=== PATIENT | female | born 1940 | race Caucasian/White ===

== ENCOUNTER 2016-11-01 14:20 | Inpatient (IN) | payer MEDICARE ==
[2016-11-01] VITALS (13 sets, daily range): BP systolic 120–170; BP diastolic 58–80; PULSE 72–92; RESP 10–16; O2SAT 94–98
[~2016-11-01] VITALS: Ht 165.1 cm; Wt 66.8 kg
[2016-11-01] MEDS: Lactated Ringer's 1,000 ML IV SCH ×2 (06:00→18:30)
[~2016-11-01 14:20] MED LIST: ASPI-973 PO; CARB1TAB14 PO; CHOL10008 PO; Clindamycin 900 mg/50 mL D5W IV SCH; Glycopyrrolate 0.2 MG/ML 1mL Inj ONE; HYDROmorphone 2 mg/mL Inj ONE; LATA2.5D6 BOTH_EYES; LOSA100T29 PO; MAGN400O4 PO; METF500T4 PO; Neostigmine 1 mg/mL 10 mL Inj ONE; OXYC5TAB72 PO; Ondansetron 2 mg/mL 2 mL Inj ONE; POLY17PO6 PO; Propofol 10,000 mCg/mL 20 mL Inj ONE; Rocuronium 10 mg/mL 5 mL Inj ONE; fentaNYL-PF 50 mCg/mL 2 mL Inj ONE
[2016-11-01] MEDS ORDERED: Lactated Ringer's 1,000 ML IV ONE ×2 (15:54→21:46)
--- NOTE | 2016-11-01 17:29 | PCM.HPANE ---
Patient Data Date of Service: Nov 01, 2016 Surgeon Admitting Provider: Attending Provider:Alcon Harmon DO Primary Care Physician:Rosibel Bishop PA-C Other Provider:Korey Torres Anesthesia Reason for Visit Right Distal Humerus Fracture Ht/WT & BMI Height (Feet): 5 Height (Inches): 5 Weight (Kilograms): 66.32 Body Mass Index 24.00 Allergies Coded Allergies: Penicillins (Verified Allergy, Severe, Rash, 11/12/15) TAPE (Verified Allergy, Intermediate, 11/12/15) Uncoded Allergies: cholographin- dye (Allergy, Severe, RASH/SYNCOPE, 03/15/14) Past Anesthesia History Anesthesia History: Denies:: Anesthesia Reactions, Malignant Hyperthermia Diabetes History Hx Diabetes?: Yes (metformin. Does not check at home) Type of Diabetes: Type II Glycemic Control: Oral Medication Current Bedside Blood Glucose: 105 MRSA MRSA: No Medications Blood Thinner: Aspirin Hypertension Medication: Yes Home Meds Incl Beta April: No Reported Medications Cholecalciferol (Vitamin D3) (Vitamin D3)1,000 Unit Tab.chew1,000 Unit PO DAILY 10/31/16 oxyCODONE 5 Mg Tablet5 Mg PO Q4H PRN For Pain Ref 0 10/31/16 Polyethylene Glycol 3350 (Miralax)17 Gm Powd.pack17 Gm PO DAILY 10/31/16 Magnesium Hydroxide (Milk of Magnesia)400 Mg/5 Ml Oral.susp30 Ml PO DAILY 10/31/16 Metformin 500 Mg [id number] Mg PO BID Ref 0 10/31/16 Losartan Potassium 100 Mg [id number] Mg PO DAILY 10/31/16 Latanoprost 2.5 Ml Drops1 Gtt OP HS #1 BOTTLE 10/31/16 Carbidopa/Levodopa 25-100 mg 1 Each Tablet1 Tablet PO TID 10/31/16 Aspirin 81 Mg [id number] Mg PO DAILY Ref 0 10/31/16 Discontinued Reported Medications Latanoprost 2.5 Ml Drops1 Gtt OP HS #1 BOTTLE 11/13/15 Aspirin 81 Mg [id number] Mg PO DAILY Ref 0 11/12/15 Cholecalciferol (Vitamin D3) (Vitamin D3)1,000 Unit Tab.chew1,000 Unit PO DAILY 11/12/15 Carbidopa/Levodopa 25-100 mg 1 Each Tablet1 Each PO TID 03/15/14 Metformin 500 Mg [id number] Mg PO BIDWM 30 Days Ref 0 03/15/14 Discontinued Scripts Losartan Potassium (Cozaar)100 Mg [id number] Mg PO DAILY #30 TABLET Prov:Deepali Lanier MD 11/14/15 Polyethylene Glycol 3350 (Miralax)17 Gm Powd.pack17 Gm PO DAILY PRN For Constipation 30 Days Ref 0 Prov:Deepali Lanier MD 11/13/15 oxyCODONE 5 Mg Tablet5 Mg PO QID PRN For Pain 7 Days Ref 0 Prov:Deepali Lanier MD 11/13/15 History History of ENT Problems?: Yes HEENT History: Positive for:: Cataracts Denture Type: Full- Upper Partial- Lower Hx of Heart Problems?: Yes Cardiovascular History: Positive for:: Chest Pain (W/ EXERTION; PROBABLY ACS ) Hypertension (HYPERLIPIDEMIA) Irregular Heartbeat (OCC PAC'S,PVC'S ZIO PATCH 01/2014) Denies:: Congestive Heart Failure Hx of Respiratory Problem?: No Respiratory History: Positive for:: Dyspnea (HU) Denies:: Asthma COPD Emphysema Oxygen Administration Tuberculosis Use of C-PAP Machine Hx Neurologic Problems?: Yes Neurological History: Positive for:: Dizziness Headaches Parkinson's Disease Other History/Comments skipped noon dose sinemet today. States she has missed doses in the past, shouldn't be much problem waiting until evening dose. Hx of GI Problems?: Yes Gastrointestinal History: Positive for:: Gastroesphageal Reflux Heartburn Hiatal Hernia Hx of Problems?: No Female Hx: Denies:: Currently Endometriosis Pelvic Inflammatory Problems with Breasts? Skin History: Denies:: History Skin Disorders? Pressure Ulcers Hx Musculoskeletal Problems?: Yes Musculoskeletal History: Positive for:: Back Injury (hx of vertebral compression fx) Musculoskeletal Trauma (right humeral fx current admission problem) Denies:: Joint Replacement Hx of Psycho/Social Problems?: Yes Psycho Social History: Positive for:: Anxiety Denies:: Bipolar Disorder Hx Depression Suicide Attempt Hx Surgeries?: Yes (MARYAM,APPY,HERNIA RPR,LYSIS OF ADHESIONS,HYST,EXC NODULE ) Hx Any Other Health Problems?: Yes Other History: Positive for:: Hospitalization (OBSV FOR CHEST PAIN 2005) Denies:: Cancer Endocrine Disease Thyroid Disease History Blood Transfusions: Denies:: Blood Transfuse Reaction Blood Transfusions Hx Diabetes: Yes (metformin. Does not check at home)Bedside Blood Glucose: 105 Hx Alcohol Use: NoHx Substance Use: No Smoking Status: Former Smoker Have You Smoked inLast 12 mo: No Stop/Bang S-Snoring: Do You Snore Loudly: No T-Tired: feel tired, fatigued: Yes O-Obsered: Observed not breath: No P-Blood Pressure: treated: Yes B- Body Mass Index > 35 kg/m2: No A- Age over 50: Yes N- Neck Large Circumference: No G- Gender Male: No GERALDINE Total Score: 3 Risk Assessment Category Category 1A: Patient has history of documented sleep apnea, and HAS NOT received any narcotic, sedative or anesthesia administration during this stay. Category 1B: Patient has history of documented sleep apnea, and HAS received any narcotic , sedative or anesthesia administration during this stay Category 2: Patient has SUSPECTED Obstructive Sleep Apnea, and HAS received any narcotic , sedative or anesthesia administration during this stay. Category 3: Patient has SUSPECTED Obstructive Sleep Apnea and HAS NOT received narcotic, sedative or anesthesia administration during this stay. Category 4: Outpatient in Procedural Areas with known sleep apnea or who screen positive for High Risk via the STOP/BANG questionnaire. Exam Exam Vital Signs Vital Signs Date Time Temp Pulse Resp B/P Pulse Ox O2 Delivery O2 Flow Rate FiO2 11/01/16 15:12 36.6 72 14 170/70 98 Room Air General Appearance: Alert, Oriented X3, Cooperative, No Acute Distress HEENT/AIRWAY: MP 2 Lungs: Clear to Auscultation, Normal Air Movement Heart: Exam Unremarkable, Regular Rate/Rhythm, No Murmurs/Rubs/Gallops Meds/Labs/Diagnostics Admission Meds Current Medications Lactated Ringer's (Lr) 1,000 ml @ ud STK-MED ONCE IV Last administered on 11/01t 15:54; Start 11/01/16 at 15:54; Stop 11/01/16 at 15:55; Status DC Bedside Blood Glucose: 105 Plan Impression Patient chart reviewed, patient interviewed and anesthestic plan with risks, benefits, and alternatives discussed, and informed consent obtained. NPO Status: confirmed before mn ASA Physical Status: ASA3 Severe Disease Anesthetic Plan: GA Bene/Risks/Altern/Consents: Yes HP Complete Prior to Induction: Yes Aureliano Meredith MD Nov 01, 2016 17:29
[2016-11-01] MEDS ORDERED: Lidocaine 1%/Epi 1:100,000 30 mL MDV INFIL ONE (21:17)
[2016-11-01] MEDS ORDERED: Lactated Ringer's 500 ML IV PRN (22:08)
[2016-11-01] MEDS ORDERED: Lactated Ringer's 1,000 ML IV SCH (22:08)
[2016-11-01] MEDS ORDERED: Phenylephrine 10,000 mCg/mL Inj IVPUSH PRN (22:10)
[2016-11-01] MEDS ORDERED: HYDROmorphone 1 mg/mL Inj IVPUSH PRN (22:10)
[2016-11-01] MEDS ORDERED: Dexamethasone 4 mg/mL Inj IVPUSH PRN (22:10)
[2016-11-01] MEDS ORDERED: MetoCLOpramide 5 mg/mL 2 mL Inj IVPUSH PRN (22:10)
[2016-11-01] MEDS ORDERED: Ondansetron 2 mg/mL 2 mL Inj IVPUSH PRN ×2 (22:10→23:00)
[2016-11-01] MEDS ORDERED: EPHEDrine Sulfate 50 mg/mL Inj IVPUSH PRN (22:10)
[2016-11-01] MEDS ORDERED: fentaNYL-PF 50 mCg/mL 2 mL Inj IVPUSH PRN (22:10)
--- NOTE | 2016-11-01 22:10 | PCM.ANEP1 ---
Post Anesthesia Phase 1 PACU Phase 1 Assessment Date of Service: Nov 01, 2016 Vital Signs see anesthesia record Vital Signs Date Time Temp Pulse Resp B/P Pulse Ox O2 Delivery O2 Flow Rate FiO2 11/01/16 22:05 87 10 135/60 96 Nasal Cannula 2 11/01/16 22:00 89 11 132/72 96 Nasal Cannula 2 11/01/16 21:55 91 11 134/61 98 Nasal Cannula 2 11/01/16 21:50 92 10 125/63 97 Nasal Cannula 3 11/01/16 21:45 92 10 125/65 94 Room Air 11/01/16 21:42 37. 92 10 120/68 98 Simple Mask 8 11/01/16 15:12 36.6 72 14 170/70 98 Room Air Anesthetic Administered: GA Level of Alertness: Sleeping, hard to arouse YOUNG's with Equal Strength: Yes Pain: No Nausea or Vomiting: No Oxygen Delivery: Simple Mask Lungs: Clear to Auscultation, Normal Air Movement Bruce Salmeron MD Nov 01, 2016 22:10
--- NOTE | 2016-11-01 22:20 | PCM.ANEP2 ---
Post Anesthesia Evaluation ASA/CMS Post Anesthesia VS in Patient's Normal Range?: Yes Resp Stable; Airway Patent?: Yes CV Function & Hydration Stable: Yes Mental Status Recovered?: Yes Pain control Satisfactory?: Yes N/V Control Satisfactory?: Yes Bruce Salmeron MD Nov 01, 2016 22:20
[2016-11-01] MEDS ORDERED: Polyethylene Glycol (PEG) 17 Gm Powder PO PRN (23:00)
[2016-11-01] MEDS ORDERED: Magnesium Hydroxide 10 mL Oral Concentration PO PRN (23:00)
[2016-11-01] MEDS ORDERED: Sodium Biphos-Phos 133 mL Enema RECTAL PRN (23:00)
[2016-11-01] MEDS ORDERED: HYDROcodone-APAP 7.5-325 mg Tablet PO PRN (23:00)
[2016-11-02] MEDS: Sodium Chloride LOK Flush 10 mL Syringe IV SCH ×4 (00:30→21:55)
[2016-11-02 01:15] VITALS: BP 140/75; PULSE 80; RESP 16; O2SAT 96
[2016-11-02] MEDS: hydrOXYzine Pamoate 25 mg Capsule PO PRN ×2 (01:30→11:26)
[2016-11-02] MEDS: HYDROcodone-APAP 7.5-325 mg Tablet PO PRN ×2 (01:30→11:26)
--- NOTE | 2016-11-02 02:01 | NUR ---
Arrival to Unit Patient arrived to [facility] at 2320 from PACU. Patient was to recover and discharge after surgery but due to status has been admitted over night. Full assist was needed to transfer patient to hospital bed. Patient is very sleepy, but arousable, and shortly after will fall back to sleep. Denies any pain, CP, or SOB. EDGER HAND applied, and 1L O2 via NC is being worn. IV SL. Right arm has francisco bandage dressing and splint applied. As the shift has progressed patient complains of 2/10 right arm pain. 1 tab norco PO and 25mg Vistaril PO given. Denies nausea and is tolerating fluids and jello. Patient has attempted to void but was unable to at this time. Bed is locked/ in low position and call light is within reach. Will continue to monitor, and continue Q 1 hour checks.
--- NOTE | 2016-11-02 02:32 | PCM.CHPMED ---
Subjective Date of Service: Nov 02, 2016 Provider requesting consult: Alcon Harmon DO Primary Physician: Admitting Physician: Primary Care Physician: Rosibel Bishop PA-C Attending Physician: Alcon Harmon DO Admit Status: 23-Hour Observation Chief Complaint: Chief Complaint: s/p ORIF Right Distal Humerus Fracture History of Present Illness: 76 y/o female with a history of Parkinson's, HTN, DM type 2, and osteoporosis on post-operative day #1 from an ORIF of right distal humerus fracture by Dr. Harmon. Per chart review, the patient was visiting [place] over a month ago with her when she fell and injured her right elbow. She was placed in a splint for several weeks but when there were no signs of healing, she was referred to Orthopedic surgery for definitive fixation. The patient reportedly tolerated the surgery well and there were no complications. She was scheduled for discharge following recovery in the PACU, however due to excessive somnolence the decision was made to admit the patient under observation status. Medical team consulted to monitor patient recovery overnight. Per nursing, patient arrived to PACU sleepy with anesthesia, would open her eyes to name but only briefly before drifting back to sleep. She was taken to the [facility] at 23:15, somnolent but aroused and hemodynamically stable. On arrival to the floor, vitals: 36.4, BP 142/80, pulse 88, RR 16, O2 sats 97% on 1L nasal cannula. Patient is alert and oriented to person, time and somewhat place. She knows she is in the hospital but states that she is in [place], [place]. She is sedated but opens her eyes to voice, is communicating appropriately and able to follow commands. She states that her pain is 2/10 and she denies fever, chills, nausea, difficulty breathing, chest pain, dizziness or headache. Review of Systems: A comprehensive review of systems was conducted with the patient and found to be negative except as above in the History of Present Illness. PMH Past Medical History Diabetes mellitus, type 2 Hypertension Parkinson's Osteoporosis Syncopal episodes Vertebral compression fracture Right distal humerus fracture Pelvic fracture Bedside Blood Glucose: 159 Surgical History ORIF right distal humerus fracture Home Medications Per [employer] Records: Aspirin 81mg daily Carbidopa 25mg-levodopa 100mg tid Latanoprost 0.005% eye drops, 1 drop qhs Losartan 100mg daily Metformin 500mg bid Oxycodone 5mg qid prn Tubersol 5 tub. unit/0.1ml intradermal inj Vitamin D3 1,000 unit daily Allergies: Coded Allergies: Penicillins (Verified Allergy, Severe, Rash, 11/12/15) TAPE (Verified Allergy, Intermediate, 11/12/15) Uncoded Allergies: cholographin- dye (Allergy, Severe, RASH/SYNCOPE, 03/15/14) Family History Family History Coronary artery disease Social History Hx Alcohol Use: NoHx Substance Use: NoHx Tobacco Use: No Smoking Status: Former Smoker Living Arrangement: with Family Exam Vital Signs Vital Sign - Last Date Time Temp Pulse Resp B/P Pulse Ox O2 Delivery O2 Flow Rate FiO2 11/02/16 00:03 Supplement Oxygen 11/01/16 22:45 82 12 144/63 96 2 11/01/16 22:10 36.3 Intake and Output 11/01/16 11/01/16 11/02/16 Cumulative From/Thru 15:00 23:00 07:00 10/31/16 16:02 - 11/02/16 00:03 Intake Total 1350 ml 1350 ml Output Total 150 ml 150 ml Balance 1200 ml 1200 ml Intake IV Total 1350 ml 1350 ml Output Estimated Blood Loss 150 ml 150 ml General: Alert (oriented to person, time and somewhat place.), Cooperative, No Acute Distress, Other (sedated but easily aroused, opens eyes on command and able to follow commands) Head: Normal Eyes: PERRLA, Scleral Anicteric Mouth: Mucous Membranes Dry Chest & Lungs: Diminished breath sounds (shallow breathing but clear to auscultation) Cardiovascular: Regular Rate/Rhythm, No Murmurs/Rubs/Gallops Abdomen: Non-tender, Non-distended, Soft Extremities: No cyanosis/clubbing/edma bilat, Other (R upper ext propped up on pillow, casted with sling in place; right hand appears neurovascularly intact. ) Neurological: Grossly Neurologically Intact (sedated, mild slurring of speech) Lab and Diagnostics Labs Labs (10/31/16) WBC 8.1 RBC 4.55 Hgb 11.5 Hct 37.2 MCV 81.8 MCH 25.3 MCHC 30.9 RDW 15.8 Sodium 142 Potassium 4.5 Chloride 103 Bicarb 22 BUN 34 Creatinine 0.84 Serum glucose 150 HbA1c 7.3 Assessment & Plan Assessment 76 y/o female with a history of Parkinson's, HTN and DM type 2 on post- operative day #1 from an ORIF of right distal humerus fracture by Dr. Harmon. Admitted under observation status for persistent post-anesthesia somnolence. Medical team consulted to monitor recovery overnight. 1. Post-operative somnolence. Improving -vital signs stable, patient is sedated but easily aroused, opens eyes on command and is somewhat confused but communicating appropriately. -continue close monitoring and supportive care 2. s/p ORIF right distal humerus fracture. -management per Orthopedic surgery 3. Diabetes mellitus, type 2 (chronic). Ongoing -continue home metformin if needed prior to discharge 4. Parkinson's. Ongoing -continue home Carbidopa-levodopa 5. Hypertension (chronic). Ongoing -continue home losartan if needed prior to discharge PRN: Acetaminophen-fever/headache/mild/moderate pain Antiemetics, as needed Bowel regimen, as needed. Problems: Pain Evaluation: Adequate Pain Control GI Prophylaxis: Not indicated VTE Prophylaxis Indicated: Meets Criteria for Anticoag Therapy (Orthopedic surgery to manage) Resuscitation Status: CPR: Attempt Resuscitation Attending Statement The patient was seen and examined together with Dr. Swan on 11/02 and I agree with the history, exam and plan as outlined in the note above. Carlotta Swan DO Nov 02, 2016 00:51 Deuce Davalos MD Nov 02, 2016 03:55
[2016-11-02 05:37] VITALS: BP 122/71; PULSE 85; RESP 18; O2SAT 96
--- NOTE | 2016-11-02 06:43 | NUR ---
Right Hand Swelling As the shift has progressed patients right hand has become more swollen and a dusky/purple in color. Patient states that she has sensation of hand, and is able to wiggle fingers, but does have some "tingling." Skin is warm to touch. Complains of 5/10 pain in both the right hand and the right elbow. Night hospitalist notified, and resident came to assess the patient. After assessment, resident recommended that the digital operations analyst PA be notified. PA paged, and has asked that the francisco bandage to be cut off assist in some pressure relief. The white dressing is to stay intact, and splint in place. Right arm is elevated on pillows, and ice applied. will continue to monitor.
[2016-11-02] MEDS: Lactated Ringer's 1,000 ML IV SCH ×2 (07:00→19:30)
--- NOTE | 2016-11-02 07:35 | PCM.PNORTH ---
Subjective Date of Service: Nov 02, 2016 Visit Information: Reason for Visit Right Distal Humerus Fracture Surgery/Surgery Date Post-Op Day # Date of Admission: Hospital Day # Subjective Cande Wall underwent a right distal humerus ORIF last night on 11/01/2016 with inflation of surgery at approximately 2130 hrs.. Found patient awake and alert this morning. Pain 5/10. On Martin 7.51 and Vistaril 25 mg for pain. Was called by nursing this morning prior to my arrival regarding dusky color of patient's right hand and increased swelling at the hand. I Asked nursing to cut the Jonathan bandages on her right upper extremity dressing. This was performed as asked. When I arrived at the hospital this morning her condition had significantly improved and a pink and normal color had returned to her hand with reduce swelling by nurse's report. Patient had good sensation and function at the right hand when tested. Patient having difficulty urinating at this time but nursing is working on this and will straight cath as needed. Pain Management: PO Objective Exam Objective Alert and oriented 3 and pleasant. Interoperative dressing is clean dry and intact with exception of Jonathan wrap having been cut at my direction to reduce pressure. Finger wiggle and sensation intact at right upper extremity distally. No compartment syndrome noted. Montes is absent. Arm is well-positioned and elevated. Vital Signs and I/O Vital Sign - Last Date Time Temp Pulse Resp B/P Pulse Ox O2 Delivery O2 Flow Rate FiO2 11/02/16 05:37 36.7 85 18 122/71 96 Nasal Cannula 1.00 Intake and Output 11/01/16 11/01/16 11/02/16 Cumulative From/Thru 15:00 23:00 07:00 10/31/16 16:02 - 11/02/16 05:37 Intake Total 1350 ml 400 ml 1750 ml Output Total 150 ml 0 ml 150 ml Balance 1200 ml 400 ml 1600 ml Intake Oral 400 ml 400 ml IV Total 1350 ml 1350 ml Output Urine Total 0 ml 0 ml Estimated Blood Loss 150 ml 150 ml # Bowel Movements 0 0 General Appearance: Alert, Oriented X3, Cooperative, No Acute Distress Extremities: No Compartment Syndrom Noted Postop Sensory Motor: Distal Motor Intact, Movement in Fingers, Distal Sensation Intact Activity: Activity per PT, Ambulate with PT (occupational therapy is requested for range of motion at wrist hand and fingers.) Catheters: None Assessment & Plan Impression Cande Becker is a 76-year-old female who has undergone a right distal humerus ORIF on 11/01/[address] Alcon Harmon. Due to the late hour at which her procedure was finished patient was ultimately kept as an inpatient with a bed with anticipated discharge today on 11/02/2016. Patient is having some difficulty with urination and has had some difficulty with a tight dressing. Dressing has been managed appropriately and resolved. Nursing is working with difficulty with urination. Problems: Plan Postoperative day #1 from right distal humerus ORIF performed on 11/01/[address] Alcon Harmon. Nonweightbearing on the right upper extremity with no pulling, pushing or lifting. Occupational therapy for wrist hand and finger range of motion while in-house.. Patient will begin outpatient physical therapy as soon as possible after discharge with removal of splint and range of motion. Continue by mouth pain medication as needed with Martin 7.5 and Vistaril 25 mg. discharge pain control medication prescription in chart. Nursing please "straight" or "in and out" cath as needed for urinary retention. Please avoid Montes catheter. Discussed this with night and day nurse this morning. 1130 hrs. I spoke with Cem Guzman RN and he informed me that patient has been straight cathed with a good result. However she is time she was no ability to void on her own. I spoke with Dr. Borrego as well and he recommends keeping patient in house and continuing bladder training until she is able to void on her own. Ice and elevate as needed for pain control. Patient may shower but arm should be well covered and taped to maintain dressing and a clean dry and intact manner. Follow-up in 4-[address] Rondon today for transition to a hinged elbow brace and ordering of outpatient physical therapy for range of motion at the elbow. F/U in 2 weeks at [facility] in 2 weeks on 11-19-[address] Alcon Harmon. Anticipate discharge to home today with family as caregivers on 11/02/2016 if and when patient is able to void without assistance.. VTE Prophylaxis: SCDs, MU Roa Resuscitation Status: CPR: Attempt Resuscitation Jerson Lin PA-C Nov 02, 2016 07:35
[2016-11-02 08:57] LABS: BASOPHILS % (AUTO) 0.2 % (0-3); EOSINOPHILS % (AUTO) 0.1 % (0-5); MONOCYTES % (AUTO) 11.6 % (4-12); Mean Corpuscular Hemoglobin 25.6 pg (27.0-35.0); Mean Corpuscular Volume 80.5 fL (81-100); Platelet Count 194 bil/L (150-400)
[2016-11-02 09:20] LABS: Magnesium 1.7 mg/dL (1.6-2.6)
[2016-11-02 09:25] VITALS: BP 115/69; PULSE 80; RESP 18; O2SAT 99
--- NOTE | 2016-11-02 10:22 | NUR ---
patient is awake and orient to person and place. she has had some confusion thinking that he surgery was hapening today. it was reinforced that she needed to drink fluids. right hand continues to be swollen and is pink in color. patient confirms that she has sensation. it is warm and dry to the touch. patient reports 2/10 pain. ice has been applied to area. patient has not yet voided. bladder scan was done and she was found to have 856 mL of urine. Doctor has confirmed straight cathether to be done to relieve urine in bladder.
--- NOTE | 2016-11-02 11:22 | NUR ---
In and Out cath: Pt unable to void, Bladder scan shows 850. In and out done with output of 600. Primary RN aware.
[2016-11-02] MEDS: Senna-Docusate 8.6-50 mg Tablet PO SCH ×2 (11:24→20:15)
[2016-11-02] MEDS ORDERED: HYDROcodone-APAP 5-325 mg Tablet PO PRN (14:50)
[2016-11-02] MEDS: Polyethylene Glycol (PEG) 17 Gm Powder PO SCH (15:00)
[2016-11-02] MEDS: Magnesium Hydroxide 355 mL Oral Suspension PO SCH (15:00)
[2016-11-02 15:20] VITALS: BP 112/68; PULSE 89; RESP 16; O2SAT 97
--- NOTE | 2016-11-02 16:03 | NUR ---
Social Work: Brief Note Data & Assessment: Airplane Rental Clerk met with patient and patient's spouse at bedside to discuss discharge plan. Patient is currently on service with [facility] and has [facility] coming into the home to assist. Patient plans to resume [facility] when discharged and will continue to have [facility] to come into the home and assist. When patient is discharged [facility] should be called at [phone] to pick her up. [facility] has been given access to the patient's chart. SW will continue to follow. Plan: Patient will discharge home with and [facility] retirement assistance. When patient is discharged [facility] should be called at [phone] to pick her up. SW will continue to follow. Tejal Peraza, KAMRYN, ACM
[2016-11-02] MEDS: Insulin Human REGular 300 Unit/3 mL Inj SUBQ SCH ×2 (17:57→20:17)
--- NOTE | 2016-11-02 19:30 | NUR ---
Urination Patient felt urge to urinate, voided 100ml. Patient bladder scanned, residual of 415ml noted. Shortly thereafter patient voided 300ml. Care is ongoing.
--- NOTE | 2016-11-02 20:12 | NUR ---
[facility] signed
[2016-11-02] MEDS ORDERED: Magnesium Sulf 2 Gm/50mL Water 2 GM in IV Premix 1 EACH IV ONE (20:20)
--- NOTE | 2016-11-02 20:20 | PCM.PNMED ---
Subjective Date of Service Nov 02, 2016 Subjective Patient complains of pain in the right upper extremity and she also complains of inability to void. She had a significant amount of relief when she had the straight catheterization. Patient still has been unable to void. Exam Vital Signs Vital Sign - Last Date Time Temp Pulse Resp B/P Pulse Ox O2 Delivery O2 Flow Rate FiO2 11/02/16 15:20 36.9 89 16 112/68 97 Room Air 11/02/16 09:25 2.00 Intake and Output 11/01/16 11/01/16 11/02/16 Cumulative From/Thru 15:00 23:00 07:00 10/31/16 16:02 - 11/02/16 05:37 Intake Total 1350 ml 400 ml 1750 ml Output Total 150 ml 0 ml 150 ml Balance 1200 ml 400 ml 1600 ml Intake Oral 400 ml 400 ml IV Total 1350 ml 1350 ml Output Urine Total 0 ml 0 ml Estimated Blood Loss 150 ml 150 ml # Bowel Movements 0 0 Exam General: Patient is sitting comfortably in bed with head elevated at approximately 45. Patient appears to be in no apparent distress until she tries to move her right upper extremity which is very painful. HEENT: Head is atraumatic and normocephalic. Eyes: Pupils are equally round and reactive to light and accommodation. Extraocular muscles are intact. Sclera are white, anicteric. Subconjunctival mucosa is pink. Ears and nose are unremarkable. Oropharynx: There is no mucosal lesions, there is no thrush, there is no pharyngitis. Neck: Is supple, there are no nodes, or masses or tenderness. Chest: Is clear to auscultation and percussion. There are no rales, rhonchi, wheezes or rubs. Heart: Rate, rhythm is regular. There is no murmur, rub or gallop. Abdomen: Good bowel sounds are present. Abdomen is soft, nontender, no organomegaly or masses were appreciated. Extremities: The right upper extremity is in a postoperative sling. The right upper area dressing is clean dry and intact. There is slight edema of the right upper extremity. The left upper extremity and bilateral lower extremities are unremarkable with no edema, and no cellulitis and no rash. Neurologic: There are no focal neurological deficits. Cranial nerves II through XII are intact. There are no sensory or motor deficits. Movements are somewhat slow, and patient exhibits somewhat of a masked facies. Gait was not tested at this time. Psychiatric: Patients mood is calm and she shows no sign of agitation. Genital: Deferred Rectal: Deferred Lab and Diagnostics Result Diagram: 11/02/1645 11/02/1645 Assessment & Plan Patient is a 76 y/o female with a history of Parkinson's, HTN, DM type 2, and osteoporosis on post-operative day #1 from an ORIF of right distal humerus fracture by Dr. Harmon. Per chart review, the patient was visiting [place] over a month ago with her when she fell and injured her right elbow. She was placed in a splint for several weeks but when there were no signs of healing, she was referred to Orthopedic surgery for definitive fixation. The patient reportedly tolerated the surgery well and there were no complications. She was scheduled for discharge following recovery in the PACU, however due to excessive somnolence the decision was made to admit the patient under observation status. The medical team was consulted to monitor patient's recovery overnight. However, today the patient has been unable to void. Patient was found to have over 800 mL of urine and a postvoid residual exam by bladder scanning. Patient was extremely uncomfortable. A straight cath was performed and relieved much of that significant postvoid residual. The patient continues to be unable to void. Therefore, the patient was admitted to the hospitalist service for further evaluation and treatment. # Post-operative somnolence, present at the time of admission. Improving - The patient's vital signs are stable, the patient is easily aroused, opens eyes on command and is more alert and responsive and back to her baseline.. - We will continue close monitoring and supportive care. # The patient is s/p ORIF right distal humerus fracture postop day #1. - Continue management per Orthopedic surgery 3. Diabetes mellitus, type 2 (chronic). Ongoing - We will continue home metformin. - Start sliding scale insulin coverage and Accu-Cheks before meals and at bedtime. # Parkinson's. Ongoing - We will continue home Carbidopa-levodopa # Hypertension (chronic). Ongoing - We will continue home losartan. PRN: Acetaminophen-fever/headache/mild/moderate pain Antiemetics, as needed Bowel regimen, as needed. Disposition: We will begin bladder training with patient and hopefully once the anesthesia effects wear off patient will be able to void and be discharged home. We will check labs and urinalysis in a.m. Pain Evaluation: Adequate Pain Control GI Prophylaxis: Not indicated VTE Prophylaxis: MU Granados VTE Mechanical Devices: Intermittant Pneumatic CD Resuscitation Status: CPR: Attempt Resuscitation Benito Borrego MD Nov 02, 2016 20:20
[2016-11-02 20:35] VITALS: BP 104/60; PULSE 89; RESP 20
--- NOTE | 2016-11-03 04:05 | OP ---
[address] [address] OPERATIVE REPORT PATIENT: AMMON MONDRAGON : 1940 MR#: [id number] ADMIT: 11/01/2016 JOB ID: [id number] DATE OF SURGERY: 11/01/2016 PREOPERATIVE DIAGNOSIS(ES): Right extra-articular distal humerus fracture. POSTOPERATIVE DIAGNOSIS(ES): Right extra-articular distal humerus fracture. PROCEDURE: 1. Open reduction internal fixation of right extra-articular distal humerus fracture. 2. Extended physician services was necessary as this fracture was almost 5 weeks old and required extensive dissection through the scar tissue. SURGEON: Alcon Harmon DO. EGG SETTER: Jerson Lin PA-C. The assistance of Jerson Lin PA-C was necessary for help with retraction as well as for reduction and manipulation of the fracture. ANESTHESIA: General. BRIEF HISTORY: The patient is a pleasant 76-year-old female who originally fell in [place]. She sought treatment in [place] but was placed simply in a splint. Once she arrived in [place] she was followed up at an outlying facility and referred here for further evaluation and treatment. Upon presentation, she was almost five weeks out now from a right displaced extra-articular distal humerus fracture. I discussed with the patient the risks, benefits, alternatives and indications to proceed with an open reduction internal fixation of the right distal humerus fracture secondary to the amount of displacement and to allow the patient to start initiating range of motion as she has been immobilized for almost five weeks. They understood the risks included, but not limited to, neurovascular injury, tendon injury, infection, failure of fixation, stiffness, persistent pain, all of which may require further intervention. The patient had all questions answered. Consent was signed and placed on the chart. PROCEDURE IN DETAIL: The patient was brought to the operating suite and placed supine on the operating room table. Surgical time-out was performed. Everyone in the room was in agreement. After appropriate anesthesia was obtained, the patient was placed into the left lateral decubitus position with the body secured with a beanbag and all prominences well padded. The right upper extremity was then prepped and draped in sterile fashion. A sterile tourniquet was then applied. Tourniquet inflated after exsanguination. A standard posterior longitudinal incision was made at the mid humerus extending medially along the olecranon and distally overlying a portion of the subcutaneous border of the ulna. Large subcutaneous flaps were then raised. The patient's ulnar nerve was first identified and freed up to the level of the cable tunnel and as far proximally to the superior aspect of the operative wound. The ulnar nerve was mobilized to allow for fracture identification and visualization as well as to protect the nerve during the case. The triceps was then elevated from a medial lateral position. Secondary incision was made laterally and paratricipital approach was utilized. The fracture was identified. There was significant fibrous tissue overlying the fracture ends. The fibrous tissues were then copiously irrigated and debrided until cortical bone was identified. The intramedullary canals were also curetted from any remaining residual fibrous tissue. Manual reduction was then performed. Lag screw was placed. There was fracturing of a portion of the cortex with application of the lag screw. Thus, it had to be removed as an insufficient purchase was obtained. Secondary lag screw was attempted but again due to the patient's bone quality, had very poor fixation. With manual reduction being held, then with multiple K-wires a Synthes posterior lateral variable angle plate was placed to the posterior lateral aspect of the humerus and dissection was carried out proximally to ensure that the plate was underneath the radial nerve and the neurovascular bundle. The plate was held provisionally with K-wires and then first affixed with nonlocking screws to pull the plate to the posterior lateral cortex of the humerus. A screw was placed both proximal and distal to the fracture site. Multiple views of fluoroscopy were utilized to verify anatomic reduction. This was followed by application of a longer direct medial plate. Again this was held provisionally with clamps. Excellent compression was achieved. Combination of locking and nonlocking screws were then utilized. With appropriate placement of the hardware and verified under fluoroscopy, completion of fixation was performed to have adequate fixation at both sides of the fracture. The patient's elbow was ranged and was able to be ranged to a near full functional range of motion. There was some loss of terminal extension, but no impingement of the olecranon was appreciated on fluoroscopy with live fluoroscopic examination. The ulnar nerve was left within the cubital tunnel as elbow range of motion did not demonstrate any subluxation. Copious irrigation was then performed, followed by closure of the subcutaneous tissues with Vicryl and arsalan for the skin. The patient was then placed into a well-padded well-molded long-arm posterior splint. ESTIMATED BLOOD LOSS: 150 cc. COMPLICATIONS: None. DISPOSITION: The patient tolerated the procedure well. Anesthesia was reversed. The patient was transferred back to recovery. POSTOPERATIVE PLAN: The patient had some issues postoperatively with O2 requirements and thus was admitted for 23 hour observation. She will follow up next week to be switched to a hinged elbow brace and start working with physical therapy. IMPLANT: A 7 hole Synthes variable angle posterior lateral distal humerus plate as well as a 6 hole variable angle directing medial distal humeral plate. [facility] HOSPITALRocio
[2016-11-03 05:40] VITALS: BP 101/63; PULSE 79; RESP 22; O2SAT 96
[2016-11-03 05:45] LABS: APPEARANCE,URINE HAZY (CLEAR,HAZY); COLOR,URINE DARK YELLOW (YELLOW); OCCULT BLOOD,URINE NEGATIVE (NEGATIVE); PH,URINE 5.5 (5.0-8.0); UROBILINOGEN,URINE NORMAL (NORMAL)
--- NOTE | 2016-11-03 05:57 | NUR ---
pain/urinary retention pt has complained of pain in her arm with movement. per report from previous nurse pt son stated that she had hallucinated on pain medications before and they believed it was the tylenol in them that she reacted poorly to. Pt was given 5mg of oxycodone this shift. there has been no increase in confusion. she is alert and oriented to self and has a general idea of where she is but does not specifically what town or hospital she is in. she has been frequently reminded to use call light but does not remember to use it, trista alarm is on. pts personal md do resident urgent care was in the room last night and stated that her mentation is the same as it has been in the last couple of weeks, and they do not see any increase in confusion. pt has urinated several times this shift. she is only able to go around 100cc at time. this morning at 0500 she voided 200cc and had a post void bladder scan of 450cc. she denies any discomfort at this time. will continue to monitor and straight cath as needed.
[2016-11-03 06:15] LABS: BASOPHILS % (AUTO) 0.3 % (0-3); EOSINOPHILS % (AUTO) 1.4 % (0-5); MONOCYTES % (AUTO) 12.8 % (4-12); Mean Corpuscular Hemoglobin 26.1 pg (27.0-35.0); Mean Corpuscular Volume 81.8 fL (81-100); NEUTROPHILS % (AUTO) 71.8 % (40-74); Platelet Count 162 bil/L (150-400)
[2016-11-03] MEDS: hydrOXYzine Pamoate 25 mg Capsule PO PRN (06:37)
[2016-11-03 07:45] VITALS: BP 104/63; PULSE 77; RESP 16; O2SAT 96
[2016-11-03] MEDS: Lactated Ringer's 1,000 ML IV SCH (08:00)
[2016-11-03] MEDS: Sodium Chloride LOK Flush 10 mL Syringe IV SCH ×2 (08:12→15:44)
[2016-11-03] MEDS: Insulin Human REGular 300 Unit/3 mL Inj SUBQ SCH ×2 (08:12→11:30)
[2016-11-03] MEDS: Magnesium Hydroxide 355 mL Oral Suspension PO SCH (08:30)
[2016-11-03] MEDS: Polyethylene Glycol (PEG) 17 Gm Powder PO SCH (08:30)
[2016-11-03] MEDS: Senna-Docusate 8.6-50 mg Tablet PO SCH (08:30)
--- NOTE | 2016-11-03 08:51 | PCM.PNORTH ---
Subjective Date of Service: Nov 03, 2016 Visit Information: Reason for Visit Right Distal Humerus Fracture Surgery/Surgery Date Post-Op Day # Date of Admission: Hospital Day # Subjective Found patient sitting up in bed this morning eating breakfast. No complaints of pain prior to removing patient's arm. Patient is communicative this morning but is not following directions for answering questions completely appropriately. Appears somewhat confused. During my evaluation patient began to have difficulty swallowing her breakfast and eventually regurgitated some of her wound. This was repeated twice. I then asked nursing to discontinue her breakfast meal and fluids and I will order a swallowing eval. I rechecked her splint position and Jonathan wrap. Patient seems to have reduced function at her right hand this morning although she does have sensation. There is some mild swelling about the hand this morning which is increased from yesterday. Her arm was not elevated when I entered the room and I have placed her arm on 2 pillows and lowered her head in order to facilitate elevation to reduce swelling. Patient does indicate this morning and she has been urinating on her own without straight catheterization. Postop General: No Complaints, No Shortness of Breath, No Chest Pain, Good Appetite Pain Management: PO Objective Exam Objective Patient is awake but seems mildly confused and has difficulty following directions. Interoperative dressing and splint are in place and intact. Interoperative use wrap was cut yesterday to relieve pressure. This was replaced yesterday by myself in very loose fashion. This is rechecked this morning and loosened further. There is mild to moderate swelling of the hand. Finger we will and sensation are intact but patient's dexterity appears reduced this morning. This could also be a result of confusion and difficulty in following requests for movement. Arm sling is in place. 2 pillows are placed under the patient's elbow to elevate her arm. Vital Signs and I/O Vital Sign - Last Date Time Temp Pulse Resp B/P Pulse Ox O2 Delivery O2 Flow Rate FiO2 11/03/16 05:40 36.9 79 22 101/63 96 Room Air 11/02/16 09:25 2.00 Intake and Output 11/02/16 11/02/16 11/03/16 Cumulative From/Thru 15:00 23:00 07:00 10/31/16 16:02 - 11/03/16 06:12 Intake Total 720 ml 2470 ml Output Total 600 ml 1100 ml 1850 ml Balance -600 ml -380 ml 620 ml Intake Oral 720 ml 1120 ml IV Total 1350 ml Output Urine Total 600 ml 1100 ml 1700 ml Estimated Blood Loss 150 ml # Voids 2 2 # Bowel Movements 0 Lab & Micro Results Laboratory Tests Test 11/03/16 05:30 11/03/16 06:04 Urine Color Dark yellow (YELLOW) Urine Appearance Hazy (CLEAR,HAZY) Urine pH 5.5 (5.0-8.0) Urine Specific [place] 1.010 (1.003-1.035) Urine Protein Negativemg/dL (NEG,TRACE) Urine Glucose (UA) Negativemg/dL (NEGATIVE) Urine Ketones Negativemg/dL (NEGATIVE) Urine Occult Blood Negative (NEGATIVE) Urine Nitrite Positive (NEGATIVE) Urine Bilirubin Negative (NEGATIVE) Urine Urobilinogen Normalmg/dL (NORMAL) Urine Leukocyte Esterase Negative (NEGATIVE) Urine RBC 0-2/hpf (0-2) Urine WBC 0-5/hpf (0-5) Urine Epithelial Cells Few/hpf (NONE-MOD) Urine Crystals None seen (NONE SEEN) Urine Bacteria Many/hpf (NONE-FEW) Urine Hyaline Casts Occasional/lpf (NONE) Urine Granular Casts None seen (NONE SEEN) Urine Waxy Casts None seen (NONE SEEN) Urine Red Blood Cell Casts None seen (NONE SEEN) Urine White Blood Cell Casts None seen (NONE SEEN) Urine Mucus None seen (None Seen) Urine Trichomonas None seen (NONE SEEN) Urine Yeast None (NONE SEEN) Urinalysis Comment None Urine Culture Reflexed Indicated White Blood Count 10.3th/mm3 (3.8-10.1) Red Blood Count 3.14mil/mm3 (3.90-5.20) Hemoglobin 8.2g/dL (12.0-15.6) Hematocrit 25.7% (35.0-46.0) Mean Corpuscular Volume 81.8fL (81-100) Mean Corpuscular Hemoglobin 26.1pg (27.0-35.0) Mean Corpuscular Hemoglobin Concent 31.9% (32.0-37.0) Red Cell Distribution Width 15.0% (12.3-15.4) Platelet Count 162bil/L (150-400) Neutrophils (%) (Auto) 71.8% (40-74) Lymphocytes (%) (Auto) 13.5% (14-46) Monocytes (%) (Auto) 12.8% (4-12) Eosinophils (%) (Auto) 1.4% (0-5) Basophils (%) (Auto) 0.3% (0-3) Sodium Level 135mEq/L (134-144) Potassium Level 4.2mEq/L (3.5-5.2) Chloride Level 100mEq/L (97-108) Carbon Dioxide Level 22mmol/L (18-29) Blood Urea Nitrogen 21mg/dL (8-27) Creatinine 0.78mg/dL (0.57-1.00) Estimat Glomerular Filtration Rate 102mL/min (>59) Glucose Level 154mg/dL (60-99) Calcium Level 8.3mg/dL (8.5-10.1) Magnesium Level 2.0mg/dL (1.6-2.6) Total Bilirubin 0.6mg/dL (0.0-1.2) Aspartate Amino Transf (AST/SGOT) 9U/L (0-50) Alanine Aminotransferase (ALT/SGPT) 5U/L (0-32) Alkaline Phosphatase 61U/L (25-165) Total Protein 4.8g/dL (6.4-8.4) Albumin 2.8g/dL (3.4-5.0) Microbiology 11/03/16 Urine Culture, Received Pending Result Diagram: 11/03/16 0611/03/16 0604 General Appearance: Cooperative (cooperative but seems mildly confused) Extremities: No Compartment Syndrom Noted Postop Sensory Motor: Distal Motor Intact, Movement in Fingers, Distal Sensation Intact Activity: Activity per PT, Ambulate with PT (occupational therapy is requested for range of motion at wrist hand and fingers.) Catheters: None Additional Information Diagnosis report patient is voiding urine on her own at this time. Assessment & Plan Impression Patient is a 76-year-old female who has undergone a right humerus distal fracture ORIF on 11/01/[address] Alcon Harmon. Patient has had difficulty with oxygenation and somnolence postop in the PACU and was held over 1 night as an outpatient with a bed. She was subsequently admitted to hospitalist service. She is pinning adherent culture at this time and appears somewhat more confused than she did yesterday on 11/02/2016. She is having difficulty swallowing. Patient has begun spontaneous voiding of urine on her own without straight catheterization. Problems: Plan Postop day #2 from right humerus ORIF performed on 11/01/[address] Alcon Harmon. Nonweightbearing on the right upper extremity with no pulling, pushing or lifting. Keep interoperative splint and dressing clean dry and intact until seen in the office next week. Splint is checked this morning and found to be intact and in place. Jonathan wrap was readjusted this morning prevent binding. Occupational therapy for wrist, hand and finger range of motion while in-house.. Patient will begin outpatient physical therapy as soon as possible after discharge with removal of splint and range of motion at the elbow. Continue by mouth pain medication as needed with Lodge 7.5 or Lodge 5 and Vistaril 25 mg. discharge pain control medication prescription in chart. This prescription may need to be adjusted depending on what is determined to be the most efficacious pain control medication prior to discharge. Ice and elevate as needed for pain control. Elevate arm on 2 pillows so that hand and elbow is above heart if possible. Patient has had difficulty swallowing this morning with regurgitation of food while I was in the room and I have ordered a stat swallow eval, ordered patient to be nothing by mouth and asked nursing to discontinue any food or fluid until swallow eval can be accomplished and patient is cleared for by mouth food.. Patient appears to be somewhat confused and less capable this morning than she was yesterday. In discussion with social worker school there is concern that patient 's may have some level of confusion as well. There is a home health service of some type and abundant family members available whom helped to manage the patient and her at home. I have spoken with hospitalist this morning and discussed swallow eval and nothing by mouth status and he has agreed to move the patient back to by mouth intake if appropriate per swallow eval. Urine cultures pending for possible UTI. Discharge instructions: Nonweightbearing at the right upper extremity with no pushing, pulling or lifting. Begin formal physical therapy for range of motion at the elbow as soon as possible after discharge. Patient may shower but arm should be well covered and taped to maintain dressing and a clean dry and intact manner. Follow-up in 4-[address] Alcon Harmon for transition to a hinged elbow brace and ordering of outpatient physical therapy for range of motion at the elbow. Two-view right humerus x-rays on arrival. F/U in 2 weeks at [facility] in 2 weeks on 11-19-[address] Alcon Harmon. Right two-view humerus x-rays on arrival. Orthopedics thanks hospitalist service for their help in the medical management of this patient. Anticipate discharge by hospitalist service to home with spouse, family members and existing home health type services as caregivers. This when patient is medically stable, she is determined to tolerate by mouth intake and pending urine cultures are returned and treatment is provided as necessary for possible urinary tract infection. VTE Prophylaxis: MU Granados Resuscitation Status: CPR: Attempt Resuscitation Jerson Lin PA-C Nov 03, 2016 08:51
--- NOTE | 2016-11-03 09:19 | NUR ---
swallowing issue/pain patient unable to swallow breakfast or water safely this morning. Patient is currently NPO and a swallow eval has been ordered. patient has not been given her AM PO medications but has been given one unit of insulin. Patient reports 3/10 pain. arm has been elevated and ice applied. right hand continues to be swollen and is pink in color. splint in place.
[2016-11-03] MEDS ORDERED: 0.9% Sodium Chloride 1,000 ML IV SCH (09:35)
[2016-11-03 11:06] VITALS: BP 109/62; PULSE 80; RESP 14; O2SAT 96
--- NOTE | 2016-11-03 13:16 | NUR ---
Evaluation completed. Please go to "Notes" then click on "Assessments and Notes" (bottom left corner of screen). Then select appropriate discipline tab on top of screen.
--- NOTE | 2016-11-03 14:16 | PCM.PNMED ---
Subjective Date of Service Nov 03, 2016 Subjective Patient seen and examined at bedside . She is confused today and failed swallow screen. She has no complaints . Exam Vital Signs Vital Sign - Last Date Time Temp Pulse Resp B/P Pulse Ox O2 Delivery O2 Flow Rate FiO2 11/03/16 11:06 36.7 80 14 109/62 96 Room Air 11/02/16 09:25 2.00 Intake and Output 11/02/16 11/02/16 11/03/16 Cumulative From/Thru 15:00 23:00 07:00 10/31/16 16:02 - 11/03/16 06:12 Intake Total 720 ml 2470 ml Output Total 600 ml 1100 ml 1850 ml Balance -600 ml -380 ml 620 ml Intake Oral 720 ml 1120 ml IV Total 1350 ml Output Urine Total 600 ml 1100 ml 1700 ml Estimated Blood Loss 150 ml # Voids 2 2 # Bowel Movements 0 Exam General: No acute distress. In bed comfortably. Confused HEENT: PERRL . Sclerae is anicteric Mouth : Moist oropharyngeal mucosa. Neck: supple, trachea is midline , no thyromegaly Chest:clear to auscultation and percussion. There are no rales, rhonchi, wheezes or rubs. Heart: S1, S2 regular Rate, rhythm is regular. There is no murmur, rub or gallop. Abdomen: Soft, non-tender, non-distended. Normal bowel sounds on quadrant Extremities: No edema, no cyanosis. Neurologic: Grossly non focal. Confused IVs and Medications Medications Reviewed: Medications were reviewed in detail Lab and Diagnostics Result Diagram: 11/03/16 0604 11/03/16 0604 Assessment & Plan Patient is a 76 y/o female with a history of Parkinson's, HTN, DM type 2, and osteoporosis on post-operative day #1 from an ORIF of right distal humerus fracture by Dr. Harmon. Per chart review, the patient was visiting [place] over a month ago with her when she fell and injured her right elbow. She was placed in a splint for several weeks but when there were no signs of healing, she was referred to Orthopedic surgery for definitive fixation. The patient reportedly tolerated the surgery well and there were no complications. She was scheduled for discharge following recovery in the PACU, however due to excessive somnolence the decision was made to admit the patient under observation status. The medical team was consulted to monitor patient's recovery overnight. However, today the patient has been unable to void. Patient was found to have over 800 mL of urine and a postvoid residual exam by bladder scanning. Patient was extremely uncomfortable. A straight cath was performed and relieved much of that significant postvoid residual. The patient continues to be unable to void. Therefore, the patient was admitted to the hospitalist service for further evaluation and treatment. 1. Post-operative somnolence, present at the time of admission. Improving - She is hemodynamically stable. Baseline seems to be at least cognitively impaired .Patient has h/o Parkinson _ No evidence of infection. Discontinue morphine , roxycodone for pain 2. Dysphasia Discussed with speech and swallow. Patient was seen and examined. She is now on modified diet. Barium swallow is scheduled 3. Right distal humerus fracture postop day #2 - Continue management per Orthopedic surgery 4. Diabetes mellitus, type 2 (chronic). Ongoing. Controlled. A1c 6.7 - We will continue home metformin. - Start sliding scale insulin coverage and Accu-Cheks before meals and at bedtime. 5. Parkinson's. Ongoing - On home Carbidopa-levodopa 6. Hypertension (chronic). Ongoing - We will continue home losartan. Discharge on hold due to AMS and dysphagia, Seen by speech and swallow . MBS pending.. On dysphasia diet in the interim GI Prophylaxis: Not indicated VTE Prophylaxis: MU Granados VTE Mechanical Devices: Intermittant Pneumatic CD Resuscitation Status: CPR: Attempt Resuscitation Time spent 25 minutes Cameron Carbone MD Nov 03, 2016 14:16
[2016-11-03] MEDS ORDERED: Magnesium Hydroxide 10 mL Oral Concentration PO SCH (14:50)
--- NOTE | 2016-11-03 15:44 | PCM.DIORTH ---
Ortho Discharge Instruction Date of Service: Nov 03, 2016 Dates of Hospitalization Date of Hospital Admission November 01, 2016 Providers Admitting Physician: Primary Care Physician: Rosibel Bishop PA-C Attending Physician: Alcon Harmon DO Diet Discharge Diet: Other (soft diet) Activity Discharge Activity-General: Elevate extremity, Elevate & ice extremity, Other ( Encourage range of motion of the fingers and wrist, but no lift, push, pull with right hand/arm) Right Upper Extremity: Non-weight bearing Dressing and Incisional Care Discharge Dressing Care: Keep dressing clean, dry & intact Discharge Hygiene: May shower, Other (Cover the splint with several plastic bags and tape when showering to keep splint clean and dry) Additional Instructions Discharge Instructions Call on Saturday to schedule follow up for Saturday or Saturday to have splint removed and to be transitioned into a brace that will allow elbow range of motion Start PT as soon as possible after follow-up visit Additional Instructions Outpatient swallow study will be scheduled to be performed, facilitated by Hospitalist to get scheduled Follow Up Plan Follow Up Plan Follow-up on Saturday or Sat Follow-up Provider (F9): Alcon Harmon DO Follow-up appointment: Days (2-3) Call your provider for: Fever, Chills, Shortness of breath, Vomitting, Drainage at incision, Increasing pain Alcon Harmon DO Nov 03, 2016 15:44
[2016-11-03] MEDS ORDERED: IBUP400T22 PO (15:47)
[2016-11-03 15:48] VITALS: BP 121/63; PULSE 80; RESP 16; O2SAT 96
--- NOTE | 2016-11-03 16:00 | NUR ---
Activity Pt alert to self and time, but confused about place. Pt reports seeing a cat in the room. Re-oriented pt. Pt up to BSC 1 person max assist. Pt voiding adequately. Pt states that she is not in any pain, however d/radha'd narcotics d/t increased confusion. Pt is safely swallowing pills whole in applesauce and drinking clears with no s/s of choking. Pt finished soft diet for lunch with no s/s of choking. Will continue to monitor.
--- NOTE | 2016-11-03 16:11 | PCM.PNORTH ---
Subjective Date of Service: Nov 03, 2016 Visit Information: Reason for Visit Right Distal Humerus Fracture Surgery/Surgery Date Post-Op Day # 2 Date of Admission: Hospital Day #2 Subjective POD #2 s/p ORIF right distal humerus fracture Pt currently doing well. Took her a little bit to identify who I was. She denies any pain to the elbow. Only complain is of hand swelling but she states that she can move her fingers and she can feel everything. She has voided several times today on her own. She had trouble eating this morning keeping down some of the food. She has been confused but states that this happens to her with the pain meds and did the same when they were in [place] and she was at the nursing facility. Her and caregiver were both here during the visit and help to answer questions. Postop General: No Complaints, No Shortness of Breath, No Chest Pain, Good Appetite Pain Management: PO Objective Exam Objective Gen - intially confused on city and who I was, but was oriented to person After talking with her more she was able to identify me by name No apparent distress Ext - splint C/D/I R UE ELLEN wrap not to tight + Swelling to the hand but palpable radial and ulnar pulse Fingers well perfused with brisk capillary refill Intact sensation in median, radial and ulnar nerve distribution Pt is able to extend fingers and thumb fully as well as make a full fist and demonstrate abduction/adduction of fingers Vital Signs and I/O Vital Sign - Last Date Time Temp Pulse Resp B/P Pulse Ox O2 Delivery O2 Flow Rate FiO2 11/03/16 15:48 36.8 80 16 121/63 96 11/03/16 11:06 Room Air 11/02/16 09:25 2.00 Intake and Output 11/02/16 11/02/16 11/03/16 Cumulative From/Thru 15:00 23:00 07:00 10/31/16 16:02 - 11/03/16 06:12 Intake Total 720 ml 2470 ml Output Total 600 ml 1100 ml 1850 ml Balance -600 ml -380 ml 620 ml Intake Oral 720 ml 1120 ml IV Total 1350 ml Output Urine Total 600 ml 1100 ml 1700 ml Estimated Blood Loss 150 ml # Voids 2 2 # Bowel Movements 0 Lab & Micro Results Laboratory Tests Test 11/03/16 05:30 11/03/16 06:04 Urine Color Dark yellow (YELLOW) Urine Appearance Hazy (CLEAR,HAZY) Urine pH 5.5 (5.0-8.0) Urine Specific Harmony 1.010 (1.003-1.035) Urine Protein Negativemg/dL (NEG,TRACE) Urine Glucose (UA) Negativemg/dL (NEGATIVE) Urine Ketones Negativemg/dL (NEGATIVE) Urine Occult Blood Negative (NEGATIVE) Urine Nitrite Positive (NEGATIVE) Urine Bilirubin Negative (NEGATIVE) Urine Urobilinogen Normalmg/dL (NORMAL) Urine Leukocyte Esterase Negative (NEGATIVE) Urine RBC 0-2/hpf (0-2) Urine WBC 0-5/hpf (0-5) Urine Epithelial Cells Few/hpf (NONE-MOD) Urine Crystals None seen (NONE SEEN) Urine Bacteria Many/hpf (NONE-FEW) Urine Hyaline Casts Occasional/lpf (NONE) Urine Granular Casts None seen (NONE SEEN) Urine Waxy Casts None seen (NONE SEEN) Urine Red Blood Cell Casts None seen (NONE SEEN) Urine White Blood Cell Casts None seen (NONE SEEN) Urine Mucus None seen (None Seen) Urine Trichomonas None seen (NONE SEEN) Urine Yeast None (NONE SEEN) Urinalysis Comment None Urine Culture Reflexed Indicated White Blood Count 10.3th/mm3 (3.8-10.1) Red Blood Count 3.14mil/mm3 (3.90-5.20) Hemoglobin 8.2g/dL (12.0-15.6) Hematocrit 25.7% (35.0-46.0) Mean Corpuscular Volume 81.8fL (81-100) Mean Corpuscular Hemoglobin 26.1pg (27.0-35.0) Mean Corpuscular Hemoglobin Concent 31.9% (32.0-37.0) Red Cell Distribution Width 15.0% (12.3-15.4) Platelet Count 162bil/L (150-400) Neutrophils (%) (Auto) 71.8% (40-74) Lymphocytes (%) (Auto) 13.5% (14-46) Monocytes (%) (Auto) 12.8% (4-12) Eosinophils (%) (Auto) 1.4% (0-5) Basophils (%) (Auto) 0.3% (0-3) Sodium Level 135mEq/L (134-144) Potassium Level 4.2mEq/L (3.5-5.2) Chloride Level 100mEq/L (97-108) Carbon Dioxide Level 22mmol/L (18-29) Blood Urea Nitrogen 21mg/dL (8-27) Creatinine 0.78mg/dL (0.57-1.00) Estimat Glomerular Filtration Rate 102mL/min (>59) Glucose Level 154mg/dL (60-99) Calcium Level 8.3mg/dL (8.5-10.1) Magnesium Level 2.0mg/dL (1.6-2.6) Total Bilirubin 0.6mg/dL (0.0-1.2) Aspartate Amino Transf (AST/SGOT) 9U/L (0-50) Alanine Aminotransferase (ALT/SGPT) 5U/L (0-32) Alkaline Phosphatase 61U/L (25-165) Total Protein 4.8g/dL (6.4-8.4) Albumin 2.8g/dL (3.4-5.0) Microbiology 11/03/16 Urine Culture, Received Pending Result Diagram: 11/03/1660311/03/16603 Activity: Activity per PT, Ambulate with PT (occupational therapy is requested for range of motion at wrist hand and fingers.) Catheters: None Assessment & Plan Impression POD #2 s/p ORIF R distal humerus fracture Problems: Plan Pt initially admitted overnight due to oxygen requirement post op. Weaned from O2 and has been sat >92% on RA all day Patient also had difficulty voiding but today has voided multiple times without any issue She did fail the swallow evaluation, but discussed with hospitalist, the patient and family that this can be done either tommorrow, and have her stay one more day, or as an outpatient Patient and the family wish to do as an outpatient and stick with soft foods in the meantime. Patient's mentation discussed with caregiver and son on the phone. This is baseline her mentation when she is on pain meds and in an unfamiliar location. This was similar when she was in [place] at the nursing facility and she became more herself when she got off the pain meds and was home in her normal environment -I have prescribed oxycodone 5mg as she has been taking that in the hospital, but recommended it only for severe pain to patient and caregiver -Included in the prescription is 400mg ibuprofen which I would like her to use primarily for the pain and hold off on the oxycodone if she does not need it Discussed plan with patient, and caregiver whom all are present and called son with patient's permission to discuss plan Patient is to be discharged home today. Pt will follow up saturday or sat to have splint removed and transition into a hinged elbow brace VTE Prophylaxis: Roberta, MU Roa Resuscitation Status: CPR: Attempt Resuscitation Alcon Harmon DO Nov 03, 2016 16:11
--- NOTE | 2016-11-03 17:40 | NUR ---
Discharge Pt was d/c'd from room 1017 at 1740 home via private vehicle with and wound care technician. IV d/c'd intact. No items in the safe or in the pharmacy. Pt to be seen for barium swallow as outpt. RX hard copies for RX and barium swallow with pt. Pt given all numbers to make apts as departments were closed. All questions and concerns addressed.
--- NOTE | 2016-11-04 07:54 | DIS ---
[address] [address] DISCHARGE SUMMARY PATIENT: AMMON MONDRAGON : 1940 MR#: [id number] ADMIT: 11/01/2016 JOB ID: [id number] DIS: ADMIT DIAGNOSIS: Right subacute distal humerus fracture. DISCHARGE DIAGNOSIS: 1. Postoperative day #2 status post open reduction, internal fixation of her right distal humerus fracture. 2. Hospitalization for increased oxygen requirement. 3. Urinary retention. 4. Difficulty swallowing. ADMISSION PHYSICIAN: Alcon Harmon DO CONSULTING SERVICE: Hospital service, under the care of Dr. Carbone. Dr. Carbone was consulted for medical management as the patient had difficulty weaning off oxygen postoperatively. He also followed her along for issues with urinary retention and for swallowing difficulties. SURGERIES AND PROCEDURES: On November 01, 2016 the patient underwent an open reduction, internal fixation of right distal humerus fracture. The patient tolerated the procedure well without any complications. Postoperatively she had difficulty getting off the oxygen and was unable to be discharged home and thus was admitted to the hospital bed for 23-hour observation. BRIEF HISTORY: The patient is a pleasant 76-year-old female that presented to me almost 5 weeks from injuring her right elbow. She originally injured her elbow in [place] when she fell. She has been weightbearing with her in [place], [place] and went back there for care. They treated her conservatively until she returned here to [place]. She sought treatment in [place] demonstrating a further displaced distal humerus extraarticular fracture and thus referred to me for further definitive care. Discussed with the patient the risks, benefits, and indications to proceed with open reduction, internal fixation of the right distal humerus fracture. They understood the risks include, but not limited to, neurovascular injury, tendon injury, infection, failure of fixation, stiffness, persistent pain, all which may require further intervention. The patient and her family including her and son had all questions answered and opted to proceed with surgery. BRIEF HOSPITALIZATION: Patient was brought to the hospital for planned outpatient surgery on November 01, 2016. She underwent open reduction, internal fixation of right distal humerus fracture. The patient tolerated the procedure well. Postoperatively had difficulty getting off the oxygen and was unable to be discharged home. She was thus admitted for 23-hour observation. I did consult the hospitalist service for medical management. The patient was able to be weaned from the oxygen and by postoperative day #1 was able to have oxygen saturations above 90% on room air, but she started to have difficulty urinating. Due to the urinary retention she required straight catheterization and bladder training. The patient also had swelling to the hand with slight decreased perfusion thus the splint dressings were loosened up allowing for increased perfusion to the hand. The patient continued to have swelling, but remained neurovascularly intact with completely intact sensation in the median, radial, and ulnar nerve distribution and complete intact motor function as she was able to demonstrate full extension of the fingers and thumb. Full composite fist and abduction and adduction of the fingers without any difficulty. Postoperative day #2 the patient was able to void on her own without any difficulty, but upon eating breakfast had difficulty with solid foods mainly with [place], she started choking. A speech eval was ordered and the patient failed eval with the recommendation to stick with soft foods until a swallow study could be performed. The swallow study was to be scheduled for tomorrow. I discussed with the patient as well as her and caregiver the option to stay additional night to have the barium swallow study performed tomorrow or have this done as an outpatient as this was discussed also with Dr. Carbone who stated that she is stable for discharge and can have the study done as an outpatient. The family opted to have this done as an outpatient procedure, and the patient thus was discussed for discharge home. The patient did have some changes in mentation throughout her hospitalization, but was able to identify herself, time, had some difficulty with place, and eventually with conversation she was able to identify who I was. Speaking with a caregiver, as well as her son, this is the patient's baseline when she is on pain medications and away from a familiar environment. Similar issue happened when she was down in [place] in the [facility] facility and once she was able to return home she returned to her normal self once she was off of the medications and in a familiar environment. Spoke with the patient's caregiver. There is another caregiver coming tonight who will be with the patient as well as her through the evening and then another one will be there tomorrow. They have caregiver available that come to the home for about 6 hours 6 days a week and they have family nearby who also come visit and help out. The patient was thus discharged home in stable condition. DISCHARGE INSTRUCTIONS: The patient is to keep the arm placed in elevated, making sure to keep the arm above the level of the heart and hand above the level of the elbow to the keep the hand from further swelling. She is encouraged to work on range of motion of the hand and wrist, which will also help with swelling. She is to cover the arm for several plastic bags and tape when showering. I will have her follow up in the office either Saturday or Saturday to have the splint removed, and transition into a hinged elbow brace to start initiating range of motion. Optimally I would like her to start therapy shortly after that visit to continue working on range of motion of the elbow as she has been immobilized for nearly 5 weeks. DISCHARGE MEDICATIONS: 1. Cleocin 300 mg 1 p.o. t.i.d. for 10 days for prophylactic antibiotic treatment as the patient had a prolonged surgery with internal hardware in addition to being a diabetic, this is in precaution to prevent any underlying infection. 2. Ibuprofen 400 mg 1 p.o. q.i.d. for pain. Discussed with the patient and caregiver that this is their pain reliever source as I do not want her to be further confused. 3. Oxycodone 5 mg 1 p.o. q.6 hours only for severe pain. Again I explained to the patient, , and the caregiver that the oxycodone is only to be used if she is having any severe pain. For mild to moderate pain I would like her to stick with the ibuprofen.
[2016-11-19] MEDS ORDERED: CHOL10008 PO (14:38)
[2016-11-19] MEDS ORDERED: METF500T4 PO (14:38)
[2016-11-19] MEDS ORDERED: MAGN400O4 PO (14:38)
== END 2016-11-03 17:33 | disposition home health service (06) | DRG 494 ==
LOC: SAS 14:20 → OSC 23:29 → SAS 23:29 → OSC 23:29 → SAS 11-03 17:33
PROVIDERS: ADMIT Orthopaedic Surgery; ATTEND Orthopaedic Surgery
PROC: 0PSF04Z Reposition Right Humeral Shaft with Internal Fixation Device, Open Approach (ICD-10-PCS; principal; 2016-11-01 16:45)
DX: S42.491A Other displaced fracture of lower end of right humerus, initial encounter for closed fracture (principal); E11.9 Type 2 diabetes mellitus without complications; Z79.4 Long term (current) use of insulin; I10 Essential (primary) hypertension; K21.9 Gastro-esophageal reflux disease without esophagitis; G20 Parkinson's disease; R40.0 Somnolence; R47.02 Dysphasia

== ENCOUNTER 2016-11-08 01:56 | Inpatient (IN) | payer MEDICARE ==
[~2016-11-08] VITALS: Ht 167.6 cm; Wt 70.2 kg
[2016-11-08] VITALS (13 sets, daily range): BP systolic 120–170; BP diastolic 50–85; PULSE 74–93; RESP 10–17; O2SAT 95–100
[~2016-11-08 01:56] MED LIST changes: -Clindamycin 900 mg/50 mL D5W IV SCH; -Glycopyrrolate 0.2 MG/ML 1mL Inj ONE; -HYDROmorphone 2 mg/mL Inj ONE; +IBUP400T22 PO; -Neostigmine 1 mg/mL 10 mL Inj ONE; -Ondansetron 2 mg/mL 2 mL Inj ONE; -Propofol 10,000 mCg/mL 20 mL Inj ONE; -Rocuronium 10 mg/mL 5 mL Inj ONE; -fentaNYL-PF 50 mCg/mL 2 mL Inj ONE
--- NOTE | 2016-11-08 02:00 | ED.REPORT ---
HPI-Trauma Minor / Fall Date of Service Nov 08, 2016 ED Provider: Benito Ochoa MD 76 year old female presents to the ER via EMS complaining of right upper extremity pain status post mechanical ground level fall while walking to the bathroom just prior to arrival. Medics report that they found the patient down with her right arm over her head in an "awkward position", sharply angulated up over her head.. Fentanyl was administered en route and the arm was straightened out into a more anatomic position by managed care liaison personnel.. Patient had surgery on 11/01/2016 to repair a displaced right humerus fracture, with follow up on , at which time she had a hinge splint placed. She denies any head trauma, neck pain, LOC, rib pain, hip pain, and shortness of breath. Nursing Notes Stated Complaint: GLF Chief Complaint: Multiple Trauma/Fall Nursing Notes Reviewed: Yes Allergies: Coded Allergies: Penicillins (Verified Allergy, Severe, Rash, 11/12/15) TAPE (Verified Allergy, Intermediate, 11/12/15) Uncoded Allergies: cholographin- dye (Allergy, Severe, RASH/SYNCOPE, 03/15/14) Scheduled Aspirin (Aspirin) 81 Mg Tablet 81 MG PO DAILY Carbidopa/Levodopa 25-100 mg (Carbidopa/Levodopa 25-100 mg) 1 Each Tablet 1 TABLET PO TID Cholecalciferol (Vitamin D3) (Vitamin D3) 1,000 Unit Tab.chew 1,000 UNIT PO DAILY Latanoprost (Latanoprost) 2.5 Ml Drops 1 GTT OP HS Losartan Potassium (Losartan Potassium) 100 Mg Tablet 100 MG PO DAILY Magnesium Hydroxide (Milk of Magnesia) 400 Mg/5 Ml Oral.susp 30 ML PO DAILY Metformin (Metformin) 500 Mg Tablet 500 MG PO BID Polyethylene Glycol 3350 (Miralax) 17 Gm Powd.pack 17 GM PO DAILY Scheduled PRN Ibuprofen (Ibuprofen) 400 Mg Tablet 400 MG PO QID PRN PRN For Pain oxyCODONE (oxyCODONE) 5 Mg Tablet 5 MG PO Q4H PRN PRN For Pain General Time Seen by MD: 02:00 Chief Complaint Fall, Other (Right Upper Extremity Pain) Hx Obtained From: Patient Arrived By: Ambulance Onset Occurred: Just prior to arrival Symptom Duration: Since onset Caused by: Accidental, Fall on ground Context: Occurred at: Home injury Location: Arm right Elbow right Quality: Painful Severity: Current: Moderate Severity: Maximum: Moderate Pertinent Negative: Pt denies other symptoms Recent Healthcare: Recent doctor visit Similar Sx Previous: Yes Past Medical History Past Medical History Parkinson's Syndrome Reports: Diabetes mellitus, Hyperlipidemia, Hypertension Past Surgical History Lysis of adhesions Right humerus repair Reports: Appendectomy, Cholecystectomy, Hysterectomy, Inguinal hernia repair Smoking History Former Smoker Social History Alcohol Use: "Social" Ambulatory Status Independent Review of Systems Musculoskeletal: Reports: Joint pain (Right Elbow), Denies: Back pain, Extremity pain, Lumbar pain, Neck pain, Thoracic pain Neurologic: Denies: Headache, Syncope Complete sys rev & neg: except as marked. Physical Exam Initial Vital Signs Vital Signs (First) Date Time Temp Pulse Resp B/P Pulse Ox O2 Delivery O2 Flow Rate FiO2 11/08/16 02:00 36.5 93 16 170/61 99 Nasal Cannula 2 Initial VS: Reviewed Head / Eyes: Atraumatic, Normocephalic Abdomen / GI: Soft, Non-tender, No guarding, No rebound, No distention Skin: Warm, Dry, No cyanosis Neurologic: Alert, Oriented, Nonfocal Psychiatric: Mood/affect normal, Behavior normal, Normal thought content General/Constitutional: Awake, Alert, Well developed, Well nourished Neck: Atraumatic, Supple, Full range of motion, No swelling, Non-tender, No midline vertebral tend Respiratory / Chest: Breath sounds NL, Breath sounds = bilat, No respiratory distress, No rales, No rhonchi, No wheezing, No chest tenderness, No chest wall deformity, No crepitus Cardiovascular: Heart rate NL, Regular rhythm, Heart sounds NL, Cap refill not delayed, Peripheral circulation NL Back: Atraumatic, Inspection NL, Painless range of motion, Non-tender, No midline vertebral tend, No CVA tenderness Upper Extremity / MS: Neurologic intact, Vascular intact Right Upper Arm: Positive: Deformity humerus mid, Pulses distal decreased (1+) , Tenderness present... Wrist / Hand: Full range of motion, Neurologic intact, Vascular intact Right Hand: Positive: Swelling present... Lower Extremity / Pelvis / MS: Inspection NL, No swelling, Non-tender, No erythema, No deformity, Neurologic intact, Vascular intact, No edema Interpretation & Diagnostics Lab Results Interpretation Result Diagram: 11/08/16 02011/08/16 0200 Test 11/08/16 02:00 11/08/16 02:30 White Blood Count 6.6th/mm3 (3.8-10.1) Red Blood Count 3.30mil/mm3 (3.90-5.20) Hemoglobin 8.3g/dL (12.0-15.6) Hematocrit 27.4% (35.0-46.0) Mean Corpuscular Volume 83.0fL (81-100) Mean Corpuscular Hemoglobin 25.2pg (27.0-35.0) Mean Corpuscular Hemoglobin Concent 30.3% (32.0-37.0) Red Cell Distribution Width 14.9% (12.3-15.4) Platelet Count 258bil/L (150-400) Neutrophils (%) (Auto) 48.1% (40-74) Lymphocytes (%) (Auto) 34.8% (14-46) Monocytes (%) (Auto) 12.7% (4-12) Eosinophils (%) (Auto) 3.6% (0-5) Basophils (%) (Auto) 0.3% (0-3) Hold Purple Top Tube Received (Received) Prothrombin Time 10.0sec (8.1-12.5) Prothromb Time International Ratio 0.94ratio Activated Partial Thromboplast Time 25.7sec (22.8-33.0) Hold Blue Top Tube Received (Received) Sodium Level 140mEq/L (134-144) Potassium Level 4.4mEq/L (3.5-5.2) Chloride Level 100mEq/L (97-108) Carbon Dioxide Level 23mmol/L (18-29) Blood Urea Nitrogen 22mg/dL (8-27) Creatinine 0.80mg/dL (0.57-1.00) Estimat Glomerular Filtration Rate 99mL/min (>59) Glucose Level 162mg/dL (60-99) Calcium Level 8.7mg/dL (8.5-10.1) Magnesium Level 1.8mg/dL (1.6-2.6) Total Bilirubin 0.5mg/dL (0.0-1.2) Aspartate Amino Transf (AST/SGOT) 7U/L (0-50) Alanine Aminotransferase (ALT/SGPT) 5U/L (0-32) Alkaline Phosphatase 68U/L (25-165) Pro-B-Type Natriuretic Peptide 955pg/mL (0-738) Total Protein 6.0g/dL (6.4-8.4) Albumin 3.3g/dL (3.4-5.0) Hold [place] Top Tube Received (Received) Hold Urine Received (Received) ECG Interpretation ECG Interpretation: Sinus rhythm, rate 81 PAC Time: 03:41 Interpreted by: ED physician X-Ray Interpretation Xray Interpretation: Broken off and angulated just above surgical repair, with the leading edge at the proximal screw. X-Ray Ordered: Humerus right Interpretation / Wet Read by: Wet read ED physician Xray Interpretation: Post-reduction film shows that the right humerus is drawn out to proper length. X-Ray Ordered: Humerus right Interpretation / Wet Read by: Wet read ED physician Procedures Splint Application - Fx Mgt Splint Application- Fx Mgt: Right humerus was drawn out to length and reduced after patient was sedated with Fentanyl. Pulse improved from 1+ to 3+ post-reduction. Time: 03:26 Procedure Performed by: ED physician, Silk Snapper Precise Anatomic Location: Right humerus Type of Immobilization: Coaptation Definitive Fracture Care: Splint Post-Procedure / Complications: Cap refill normal, Post splint vascular nl, Post splint neuro nl, Condition improved, Tolerated procedure well, Patient stable Splint Post-Application Eval Extremity Condition: Cap refill < 2 sec, Distal sensation intact, Distal motor Intact, No compartment syndrome Re-Eval/Medical Decision Med Decision/Clinical Course 76-year-old just postop from a fracture of the distal humerus, has had another fall and unfortunately fractured her proximal humerus just at the proximal end of her plate and screw repair. She is in significant pain and with an unstable arm at this point. She is admitted to medicine service with consultation to her surgeon. Unlikely this would be amenable to surgical fixation. She is placed in a coaptation splint from shoulder to olecranon laterally and from axilla to olecranon medially. The arm was drawn out to essentially anatomic length with improvement of her pulse. He was splinted in that position and post reduction x-ray shows fairly good reduction. She is transported now in stable condition. Source of Hx: Old records Re-Evaluation/Progress #1: Time of Eval: 02:29 Re-Evaluation/Progress Note: Discussed x-ray results and need for admission. Patient is amenable to the plan. All other questions addressed. Re-Evaluation/Progress #2: Time of Eval: 03:25 Re-Evaluation/Progress Note: Splint application and fracture management. Consultation : Referral / Consult Name: Estela De La Rosa DO Consulted With: Hospitalist Call Returned at: 03:10 Head Correction Officer: Agrees with eval, Agrees with plan, Accepts admit Counseled Regarding: Diagnosis, Lab results, Need for follow-up, When/why to return to ED Discharge & Departure Impression: Primary Impression: Humeral fracture Additional Impressions: Fall from ground level History of falling, presenting hazards to health Disposition: ADMITTED TO HOSPITAL Discharge Condition All VS Reviewed: Yes Condition: Stable Referrals: Rosibel Bishop PA-C (PCP) Allynibjh Attestation Portions of this note were transcribed by Jeri Joyner. I, Dr. Ochoa, personally performed the history, physical exam and medical decision-making; I reviewed and confirmed the accuracy of the information in the transcribed note. Signed by: Florencio Sultana, 11/08/2016 at 05:20 copies to: Rosibel Bishop PA-C, Christopher W MD Nov 08, 2016 02:00 JERI JOYNER Nov 08, 2016 02:08
[2016-11-08] MEDS: fentaNYL-PF 50 mCg/mL 2 mL Inj IVPUSH PRN ×5 (02:39→04:04)
[2016-11-08 03:15] LABS: BASOPHILS % (AUTO) 0.3 % (0-3); EOSINOPHILS % (AUTO) 3.6 % (0-5); MONOCYTES % (AUTO) 12.7 % (4-12); Mean Corpuscular Hemoglobin 25.2 pg (27.0-35.0); NEUTROPHILS % (AUTO) 48.1 % (40-74); Platelet Count 258 bil/L (150-400)
[2016-11-08 03:27] LABS: INR 0.94 ratio
[2016-11-08] MEDS ORDERED: Polyethylene Glycol (PEG) 17 Gm Powder PO PRN ×2 (03:35→05:00)
[2016-11-08] MEDS ORDERED: Alum-Mag Hydrox-Simeth 30 mL Suspension PO PRN (03:35)
[2016-11-08] MEDS ORDERED: Ondansetron 2 mg/mL 2 mL Inj IVPUSH PRN ×2 (03:35→11:45)
--- NOTE | 2016-11-08 03:37 | PCM.HPMED ---
Subjective Date of Service Nov 08, 2016 Primary Provider: Admitting Physician: Estela De La Rosa DO Primary Care Physician: Rosibel Bishop PA-C Attending Physician: Estela De La Rosa DO Admit Status: From the Emergency Department Chief Complaint: mechanical ground level fall History of Present Illness: 76yo F with past medical history of HTN, type 2 diabetes, osteoporosis, and parkinson's disease with recent ORIF of right distal humerus (discharge 11/03) admitted following mechanical ground level fall with subsequent findings of right humerus fracture. Mrs. Becker was seen most recently by Dr. Harmon for ORIF of right humerus following fall initially in [place] and was treated conservatively in [place], [place] and with worsening discomfort sought out further treatment. She was found to have further displacement of the distal humerus fracture. ORIF was completed on 11/01 however following procedure she remained hypoxic and was admitted for observation. She was noted in previous hospitalization to have some mentation changes as well as aspiration. On 11/08 prior to admission, Mrs. Becker was getting out of bed and tripped and fell. EMS was called. XR in [facility] ED concerning for second humerus fracture Review of Systems: complete review of systems obtained. positive as per hpi otherwise negative. Allergies Coded Allergies: Penicillins (Verified Allergy, Severe, Rash, 11/12/15) TAPE (Verified Allergy, Intermediate, 11/12/15) Uncoded Allergies: cholographin- dye (Allergy, Severe, RASH/SYNCOPE, 03/15/14) Home Medications Patient was discharged on Cleocin 300mg 1 PO TID for 10 days - continue Ibuprofen - not continued Oxycodone 5mg 1PO q6HR PRN - continue Scheduled Aspirin (Aspirin) 81 Mg Tablet 81 MG PO DAILY Carbidopa/Levodopa 25-100 mg (Carbidopa/Levodopa 25-100 mg) 1 Each Tablet 1 TABLET PO TID Cholecalciferol (Vitamin D3) (Vitamin D3) 1,000 Unit Tab.chew 1,000 UNIT PO DAILY Latanoprost (Latanoprost) 2.5 Ml Drops 1 GTT OP HS Losartan Potassium (Losartan Potassium) 100 Mg Tablet 100 MG PO DAILY Magnesium Hydroxide (Milk of Magnesia) 400 Mg/5 Ml Oral.susp 30 ML PO DAILY Metformin (Metformin) 500 Mg Tablet 500 MG PO BID Polyethylene Glycol 3350 (Miralax) 17 Gm Powd.pack 17 GM PO DAILY Scheduled PRN Ibuprofen (Ibuprofen) 400 Mg Tablet 400 MG PO QID PRN PRN For Pain oxyCODONE (oxyCODONE) 5 Mg Tablet 5 MG PO Q4H PRN PRN For Pain PMH Diabetes mellitus, type 2 Hypertension Parkinson's Osteoporosis Syncopal episodes Vertebral compression fracture Right distal humerus fracture Pelvic fracture Surgical History ORIF right distal humerus fracture Lysis of adhesions Appendectomy Cholecystectomy Hysterectomy Inguinal hernia repair Family History Patient unable to recall family history Social History Occupation: retired Hx Alcohol Use: No Hx Substance Use: No Hx Tobacco Use: No Smoking Status: Former Smoker Living Arrangement: with Family (lives with (dementia)) Exam Vital Signs Vital Sign - Last Date Time Temp Pulse Resp B/P Pulse Ox O2 Delivery O2 Flow Rate FiO2 11/08/16 02:00 36.5 93 16 170/61 99 Nasal Cannula 2 Exam General: Alert, Oriented x3, Cooperative, No acute Distress Eyes: PERRLA, Scleral Anicteric Mouth: Mouth Normal, Mucous Membranes dry/[place] Neck: Supple, no Thyromegaly, trachea central. Chest & Lungs: CTA bilat, good resp effort, no rhonchi wheeze or rales, anterior exam Cardiovascular: Normal S1, Normal S2, No Murmurs/Rubs/Gallops, reg rate/ reg rhythm, (no JVD, + peripheral edema) Pulses: Radial (present and equal), Dorsalis Pedi (present and equal) Abdomen: Soft, non-tender, Non-distended, Normoactive bowel tones. Musculoskeletal: Unremarkable. Normal range of motion, no swollen or erythematous joints Extremities: 1-2+ pitting L>R edema, no cyanosis, no clubbing. Skin: No rashes. Warm and dry, no erythematous areas Neurological: Grossly neurologically intact, Normal Speech, Sensation Intact Lymphatic: Lymph nodes Cervical and Axillary not palpable. Lab and Diagnostics Result Diagram: 11/08/16 0200 X-Rays, CTs and MRIs Xray Interpretation: Broken off and angulated above surgical repair. X-Ray Ordered: Humerus right Interpretation / Wet Read by: Wet read ED physician Assessment & Plan 76yo F with past medical history of HTN, type 2 diabetes, osteoporosis, and parkinson's disease with recent ORIF of right distal humerus (discharge 11/03) admitted following mechanical ground level fall with subsequent findings of right humerus fracture. Right humerus fracture, acute -s/p glf -recent ORIF -NPO, mIVF -AM team to consult ortho Ground level fall, acute -increase amount of falls recently -PT/OT prior to discharge to assess for home safety Lower extremity edema, unknown chronicity -concerning for DVT -[facility] Diabetes mellitus, type 2, chronic -continue metformin following discharge -SSI -diabetic diet when taking PO Hypertension, chronic continue ARB Parkinson's disease, chronic -continue carbidopa-levadopa Osteoporosis Syncopal episodes, chronic -may be playing a role in GLF -tele Pain Evaluation: Adequate Pain Control VTE Prophylaxis: Sub-Q Heparin (Unfractionated) Resuscitation Status: CPR: Attempt Resuscitation Estela De La Rosa DO Nov 08, 2016 03:37
[2016-11-08 03:44] LABS: Magnesium 1.8 mg/dL (1.6-2.6)
[2016-11-08] MEDS ORDERED: 0.9% Sodium Chloride 1,000 ML IV SCH (04:55)
--- NOTE | 2016-11-08 05:12 | NUR ---
admit note pt to floor used slider board to get pt to bed, pt a little droswy from pain medications, splint in place, pt NPO, on bedrest, tele SR, NS at 75cc/hr started, pt using bedpan, orientated pt to call light, room and bed
[2016-11-08] MEDS: Heparin 5,000 Unit/mL Inj SUBQ SCH ×2 (07:53→20:40)
[2016-11-08] MEDS: Insulin Human REGular 300 Unit/3 mL Inj SUBQ SCH ×3 (08:30→20:39)
--- NOTE | 2016-11-08 08:53 | DRSVH ---
PROCEDURE: X-RAY RIGHT HUMERUS, MINIMUM TWO VIEWS ([id number]) INDICATIONS: fall, post op orif TECHNIQUE: 3 views of the humerus were acquired. COMPARISON: [facility], CR, XR HUMERUS 2VW RT, 11/08/2016, 3:53. Outside Film, CR, XR HU MERUS 2VW RT, 10/25/2016, 15:21. FINDINGS: Bones: There are postsurgical changes in the distal humerus with medial and lateral fixation plates a nd multiple fixation screws. Proximal to the surgical hardware, there is a fracture of the humeral m idshaft with mild medial displacement and lateral angulation. Soft tissues: Multiple surgical arsalan are demonstrated in the soft tissues there IMPRESSION: 1. Mildly displaced and angulated humeral midshaft fracture proximal to surgical hardware in the dis sai humerus. Dictated by: Jemal Chowdhury M.D. on 11/08/2016 at 8:49 Approved by: Jemal Chowdhury M.D. on 11/08/2016 at 8:51
--- NOTE | 2016-11-08 08:54 | DRSVH ---
PROCEDURE: X-RAY CHEST ONE VIEW, PORTABLE ([id number]) INDICATIONS: History of humeral fracture. Preoperative evaluation. TECHNIQUE: One view of the chest was acquired. COMPARISON: [facility], CR, XR HUMERUS 2VW RT, 11/08/2016, 2:04. FINDINGS: Surgical changes and devices: There are postsurgical changes partially visualized in the distal right humerus. Lungs and pleura: No pleural effusions or pneumothorax. Lungs are clear. Mediastinum: Mediastinal contours appear normal. Heart size is normal. Bones and chest wall: There is a mildly angulated right humeral midshaft fracture. Overlying soft t issues appear unremarkable. IMPRESSION: 1. No acute cardiopulmonary disease. Dictated by: Jemal Chowdhury M.D. on 11/08/2016 at 8:51 Approved by: Jemal Chowdhury M.D. on 11/08/2016 at 8:53
[2016-11-08] MEDS ORDERED: CARB1TAB14 PO (09:13)
--- NOTE | 2016-11-08 09:41 | DRSVH ---
PROCEDURE: X-RAY RIGHT HUMERUS, MINIMUM TWO VIEWS ([id number]) INDICATIONS: post reduction TECHNIQUE: 2 views of the humerus were acquired. COMPARISON: Outside Film, CR, XR SHOULDER MIN 2VW RT, 10/25/2016, 15:20. [facility], CR, XR SURG FLOURO EA 30 MIN, 11/01/2016, 18:10. Outside Film, CR, XR ELBOW 2VW RT, 10/25/2016, 15:30. [facility] utside Film, CR, XR HUMERUS 2VW RT, 10/25/2016, 15:21. [facility], CR, XR HUMERUS 2VW RT, 11/08/2016, 2:04. FINDINGS: Bones: Improved alignment status post closed reduction of mid shaft right humeral fracture. Persiste nt mild lateral angulation of distal fracture component is noted which has decreased from the examina tion done on 11/08/2016 at 02/04 hours. Surgical fixation plates and associated screws involving the distal humerus are intact but the distal aspect of the surgical hardware is not imaged. Multiple christopher gical arsalan are noted within the soft tissues. Osteoarthritic changes redemonstrated. Soft tissues: No suspicious soft tissue calcifications. IMPRESSION: Improved alignment status post closed reduction of mid right humeral shaft fracture with mild residua l angulation. Unchanged positioning of distal humeral surgical plates and associated screws were visible. Of note, the distal aspect of the fixation hardware is not imaged and cannot be evaluated. Dictated by: Rusty OSPINA Interpreted: Cheo Cazares MD on 11/08/2016 at 9:37 Transcribed by: YOVANI on 11/08/2016 at 9:41 Approved by: Cheo Cazares M.D. on 11/08/2016 at 9:55
--- NOTE | 2016-11-08 09:45 | CONS ---
[address] [address] CONSULTATION REPORT PATIENT: AMMON MONDRAGON : 1940 MR#: [id number] ADMIT: 11/08/2016 JOB ID: [id number] DATE OF SERVICE: 11/08/2016 ORTHOPEDIC CONSULTATION: CHIEF COMPLAINT: Right upper arm pain. HISTORY OF PRESENT ILLNESS: This is a pleasant 76-year-old female that is well-known to our clinic. I originally saw her just over a week ago for a 4-1/2 week old right distal humerus fracture. Last she underwent open reduction, internal fixation of the distal humerus fracture. She did well, had some issues on oxygen as well as urinary retention postop, but was able to be discharged home on postoperative day #2. She followed up in the office two days ago and was doing well. She was moving her elbow and had already removed her splint. I transitioned her at that time into a hinged elbow brace and have her to start therapy which she was to start today. Earlier this morning she was getting out of bed and tripped and fell. She landed again onto her right side. She had an obvious deformity of the humerus again and was transported over to the hospital for further evaluation and treatment. On presentation, she demonstrated a fracture of the humerus at the level of the proximal aspect of the plate fixation extending nearly to the surgical neck. She was placed into a coaptation splint and admitted to the hospital. She was placed n.p.o. with Orthopedics to consult. The patient is seen this morning. She states there was quite a bit of hand swelling over the morning but her main complaint is of upper arm pain. She has been comfortable in the splint that was applied in the emergency department. She denies any paresthesias to her right hand. She does have some wrist soreness but states she is able to move her wrist well despite having the soreness. PAST MEDICAL HISTORY: 1. Diabetes. 2. Parkinson's. 3. Hypertension. PAST SURGICAL HISTORY: 1. Open reduction, internal fixation of right distal humerus fracture performed last week. 2. Appendectomy. 3. Cholecystectomy. 4. Hysterectomy. 5. Herniorrhaphy. FAMILY HISTORY: Noncontributory. SOCIAL HISTORY: The patient currently lives at home with her . They do have caregivers that come six days a week for about 6 hours and they do have family nearby to help. MEDICATIONS: Please see electronic medical record for a list of the patient's medications. ALLERGIES: PENICILLIN and TAPE. REVIEW OF SYSTEMS: The patient denies any fevers, sweats, chills, chest pain, shortness of breath, nausea, vomiting, diarrhea. Complains mainly of right arm pain as described in the history of present illness. PHYSICAL EXAMINATION: General: The patient is alert, no apparent distress. HEENT: Normocephalic, atraumatic. Extraocular movements intact. Nares patent. Lungs: No audible wheezes. No overt signs of respiratory distress. Neuro: Cranial nerves 2-12 are intact. Extremities: On gross observation of the patient's right arm, she is in a coaptation splint. Her hand is exposed as well as her forearm. She has minimal tenderness to the distal radius and ulna. There is some mild swelling to the hand. She otherwise is able to demonstrate full range of motion including full extension of fingers, full composite fist and abduction and adduction of the fingers. There are palpable distal radial and ulnar pulses. All fingers are well perfused, completely intact sensation. DIAGNOSTIC STUDIES: Two views of the patient's humerus were obtained early this morning which demonstrates what appears to be intact fixation to the distal humerus. There is a spiral fracture that propagates to the superior aspect of the medial plate that spirals to about the level of the surgical neck. IMPRESSION: Right proximal humeral shaft fracture. PLAN: Discussed with the patient, her as well as their daughter and son, the risks, benefits, alternatives and indications to proceed with open reduction, internal fixation of the proximal humeral shaft fracture. The fixation will be done through an anterior approach rather than the posterior approach that was performed for the distal humerus. We will leave that fixation alone as it still appears to be intact. There will be an overlap of the proximal plate. Will start her almost immediately with physical therapy for range of motion of the shoulder as well as elbow following surgery. She will likely also require retirement facility placement once she is discharged. All risks, benefits and indications were explained to the patient again and with her family and a consent was signed and placed in the chart by her . As her right arm was injured, she is unable to write.
--- NOTE | 2016-11-08 10:28 | PCM.HPANE ---
Patient Data Date of Service: Nov 08, 2016 Surgeon Admitting Provider:Estela De La Rosa DO Attending Provider:Estela De La Rosa DO Primary Care Physician:Rosibel Bishop PA-C Other Provider: Reason for Visit Humeral Fracture Ht/WT & BMI Height (Feet): 5 Height (Inches): 6.00 Weight (Kilograms): 65.400 Body Mass Index 23.17 Allergies Coded Allergies: Penicillins (Verified Allergy, Severe, Rash, 11/12/15) TAPE (Verified Allergy, Intermediate, 11/12/15) Uncoded Allergies: cholographin- dye (Allergy, Severe, RASH/SYNCOPE, 03/15/14) Past Anesthesia History Anesthesia History: Denies:: Abnormal Airway, Anesthesia Reactions, Difficult Intubation, Fam Anesthesia Reaction, Fam Malignant Hypertherm, Malignant Hyperthermia Diabetes History Hx Diabetes?: Yes (only check BG sometimes takes po meds) Type of Diabetes: Type II Glycemic Control: Oral Medication Current Bedside Blood Glucose: 155 MRSA MRSA: No Medications Blood Thinner: Aspirin Active Scripts Ibuprofen 400 Mg [id number] Mg PO QID PRN For Pain #60 TABLET Ref 0 Prov:Alcon Harmon DO 11/03/16 Reported Medications Carbidopa/Levodopa 25-100 mg 1 Each Tablet1 Tablet PO Noon 11/08/16 Cholecalciferol (Vitamin D3) (Vitamin D3)1,000 Unit Tab.chew1,000 Unit PO DAILY 10/31/16 oxyCODONE 5 Mg Tablet5 Mg PO Q4H PRN For Pain Ref 0 10/31/16 Polyethylene Glycol 3350 (Miralax)17 Gm Powd.pack17 Gm PO DAILY 10/31/16 Magnesium Hydroxide (Milk of Magnesia)400 Mg/5 Ml Oral.susp30 Ml PO DAILY 10/31/16 Metformin 500 Mg [id number] Mg PO BID Ref 0 10/31/16 Losartan Potassium 100 Mg [id number] Mg PO DAILY 10/31/16 Latanoprost 2.5 Ml Drops1 Gtt OP HS #1 BOTTLE 10/31/16 Carbidopa/Levodopa 25-100 mg 1 Each Tablet2 Tablet PO BID 10/31/16 Aspirin 81 Mg [id number] Mg PO HS Ref 0 10/31/16 History History of ENT Problems?: Yes HEENT History: Positive for:: Cataracts Denies:: Abnormal Airway Difficult Intubation Dysphagia Glaucoma Hearing Problem Sinus Problem TMJ Denture Type: Full- Upper Partial- Lower Teeth Condition: Within Normal Limits Hx of Heart Problems?: Yes Cardiovascular History: Positive for:: Chest Pain (with activity) Hypertension Irregular Heartbeat (PVC PACs) Denies:: AICD Abdominal Aortic Aneurism Atrial Fibrillation Cardiac Surgery Congestive Heart Failure Coronary Artery Disease Edema Heart Murmur Pacemaker Peripheral Vascular Rheumatic Fever Thrombophlebitis Valvular Heart Disease Hx of Respiratory Problem?: No Respiratory History: Positive for:: Dyspnea Denies:: Asthma COPD Chest Surgery Cough Emphysema Hemoptysis Oxygen Administration Pneumonia Pulmonary Embolism Tuberculosis Use of C-PAP Machine Use of Inhalers / NEBS Hx Neurologic Problems?: Yes Neurological History: Positive for:: Dementia Dizziness Headaches Parkinson's Disease Denies:: Alzheimer's Disease CVA Multiple Sclerosis Peripheral Neuropathy Seizures TIA Hx of GI Problems?: Yes Gastrointestinal History: Positive for:: Gastroesphageal Reflux Heartburn Hiatal Hernia (fixed years ago) Denies:: Cirrhosis Diverticulitis Gall Bladder Disease Gastrointestinal Bleeding Hepatitis Liver Disease Rectal Bleeding Hx of Problems?: No Genitourinary History: Positive for:: Urinary Tract Infection HX of Peritoneal Dialysis: No Hx Musculoskeletal Problems?: Yes Musculoskeletal History: Positive for:: Back Injury (hx of vertebral compression fx) Musculoskeletal Trauma (right humeral fx ) Denies:: Degenerative Joint Fibromyalgia Joint Replacement (hard spencer in right humeraus) Myasthenia Gravis Osteoarthritis Rheumatoid Arthritis Systemic Lupus Hx of Psycho/Social Problems?: Yes Psycho Social History: Positive for:: Anxiety Denies:: Bipolar Disorder Hx Depression Suicide Attempt Hx Surgeries?: Yes (R humerus ORIF, MARYAM,APPY,HERNIA RPR,LYSIS OF ADHESIONS, HYST,EXC NODULE ) Hx Any Other Health Problems?: Yes Other History: Positive for:: Hospitalization Denies:: Cancer Endocrine Disease Thyroid Disease History Blood Transfusions: Positive for:: Accept Blood Products? Denies:: Blood Transfuse Reaction Blood Transfusions Hx Diabetes: Yes (only check BG sometimes takes po meds)Bedside Blood Glucose: 155 Occupation: retired Hx Alcohol Use: NoAlcoholic Drinks Per Day: "not enough to amount to anything "[place] 4Bd Hx Substance Use: No Smoking Status: Former Smoker Have You Smoked inLast 12 mo: No Stop/Bang Treated for Sleep Apnea?: No Do You Have a CPAP Machine?: No S-Snoring: Do You Snore Loudly: No T-Tired: feel tired, fatigued: No O-Obsered: Observed not breath: No P-Blood Pressure: treated: Yes B- Body Mass Index > 35 kg/m2: No A- Age over 50: Yes N- Neck Large Circumference: No G- Gender Male: No GERALDINE Total Score: 1 Risk Assessment Category Category 1A: Patient has history of documented sleep apnea, and HAS NOT received any narcotic, sedative or anesthesia administration during this stay. Category 1B: Patient has history of documented sleep apnea, and HAS received any narcotic , sedative or anesthesia administration during this stay Category 2: Patient has SUSPECTED Obstructive Sleep Apnea, and HAS received any narcotic , sedative or anesthesia administration during this stay. Category 3: Patient has SUSPECTED Obstructive Sleep Apnea and HAS NOT received narcotic, sedative or anesthesia administration during this stay. Category 4: Outpatient in Procedural Areas with known sleep apnea or who screen positive for High Risk via the STOP/BANG questionnaire. Exam Exam Vital Signs Vital Signs Date Time Temp Pulse Resp B/P Pulse Ox O2 Delivery O2 Flow Rate FiO2 11/08/16 08:00 36.8 75 10 153/81 98 Nasal Cannula 2.00 11/08/16 08:00 Supplement Oxygen 11/08/16 05:34 79 11/08/16 04:32 Supplement Oxygen 11/08/16 04:32 36.8 78 13 142/68 98 Nasal Cannula 2.00 General Appearance: Alert HEENT/AIRWAY: MP 2 Lungs: Clear to Auscultation Heart: Exam Unremarkable Meds/Labs/Diagnostics Admission Meds Current Medications Heparin Sodium (Porcine) 5000 unit 5,000 unit Q12 SUBQ Last administered on 07:53; Start 11/08/16 at 08:30 Sodium Chloride (Normal Saline) 1,000 ml @ 75 mls/hr [id number] IV Last administered on 11/08/16 05:11; Start 11/08/16 at 04:55 Carbidopa/Levodopa (Sinemet 25-100 mg) 1 tablet TID PO Last administered on 07:38; Start 11/08/16 at 08:30 Bedside Blood Glucose: 155 Labs Test 11/08/16 02:00 11/08/16 10:15 White Blood Count 6.6th/mm3 (3.8-10.1) Red Blood Count 3.30mil/mm3 (3.90-5.20) Hemoglobin 8.3g/dL (12.0-15.6) Hematocrit 27.4% (35.0-46.0) Mean Corpuscular Volume 83.0fL (81-100) Mean Corpuscular Hemoglobin 25.2pg (27.0-35.0) Mean Corpuscular Hemoglobin Concent 30.3% (32.0-37.0) Red Cell Distribution Width 14.9% (12.3-15.4) Platelet Count 258bil/L (150-400) Neutrophils (%) (Auto) 48.1% (40-74) Lymphocytes (%) (Auto) 34.8% (14-46) Monocytes (%) (Auto) 12.7% (4-12) Eosinophils (%) (Auto) 3.6% (0-5) Basophils (%) (Auto) 0.3% (0-3) Hold Purple Top Tube Received (Received) Prothrombin Time 10.0sec (8.1-12.5) Prothromb Time International Ratio 0.94ratio Activated Partial Thromboplast Time 25.7sec (22.8-33.0) Hold Blue Top Tube Received (Received) Sodium Level 140mEq/L (134-144) Potassium Level 4.4mEq/L (3.5-5.2) Chloride Level 100mEq/L (97-108) Carbon Dioxide Level 23mmol/L (18-29) Blood Urea Nitrogen 22mg/dL (8-27) Creatinine 0.80mg/dL (0.57-1.00) Estimat Glomerular Filtration Rate 99mL/min (>59) Glucose Level 162mg/dL (60-99) Calcium Level 8.7mg/dL (8.5-10.1) Magnesium Level 1.8mg/dL (1.6-2.6) Total Bilirubin 0.5mg/dL (0.0-1.2) Aspartate Amino Transf (AST/SGOT) 7U/L (0-50) Alanine Aminotransferase (ALT/SGPT) 5U/L (0-32) Alkaline Phosphatase 68U/L (25-165) Pro-B-Type Natriuretic Peptide 955pg/mL (0-738) Total Protein 6.0g/dL (6.4-8.4) Albumin 3.3g/dL (3.4-5.0) Hold [place] Top Tube Received (Received) Plan Impression Patient chart reviewed, patient interviewed and anesthestic plan with risks, benefits, and alternatives discussed, and informed consent obtained. NPO per Anesth. Guidelines: Yes ASA Physical Status: ASA3 Severe Disease Anesthetic Support Modalities: Hemodynamic Monitoring Anesthetic Plan: GA Bene/Risks/Altern/Consents: Yes HP Complete Prior to Induction: Yes Gokul Stevenson MD Nov 08, 2016 10:28
--- NOTE | 2016-11-08 10:34 | NUR ---
Pt to OR at 1030hrs Pt has been NPO since admission. VS are stable. doherty placed per MD orders until more mobile post op. Family are here and did get to talk to the surgeon.
[2016-11-08] MEDS ORDERED: Lactated Ringer's 500 ML IV PRN (11:42)
[2016-11-08] MEDS ORDERED: Lactated Ringer's 1,000 ML IV SCH (11:42)
[2016-11-08] MEDS ORDERED: fentaNYL-PF 50 mCg/mL 2 mL Inj IVPUSH PRN (11:45)
[2016-11-08] MEDS ORDERED: Phenylephrine 10,000 mCg/mL Inj IVPUSH PRN (11:45)
[2016-11-08] MEDS ORDERED: EPHEDrine Sulfate 50 mg/mL Inj IVPUSH PRN (11:45)
[2016-11-08] MEDS ORDERED: MetoCLOpramide 5 mg/mL 2 mL Inj IVPUSH PRN (11:45)
[2016-11-08] MEDS ORDERED: HYDROmorphone 1 mg/mL Inj IVPUSH PRN (11:45)
[2016-11-08] MEDS ORDERED: Dexamethasone 4 mg/mL Inj IVPUSH PRN (11:45)
[2016-11-08] MEDS ORDERED: Lactated Ringer's 1,000 ML IV ONE ×2 (11:47→14:47)
[2016-11-08] MEDS ORDERED: Clindamycin 900 mg/50 mL D5W Premix IV ONE (11:52)
--- NOTE | 2016-11-08 12:30 | NUR ---
Social Work: Attempted Assessment D: Per EMR review, pt is a 76 year old female admitted for humeral Fracture. Pt is [employer]. PCP is Rosibel Bishop PA-C. NOK is Phan Becker, spouse. Advanced directives completed and on file. Readmit score is not entered at this time. pt is a readmit from 11/03/16 and was discharged home with [facility] and [facility] caregiving. [employer] attempted to meet with pt at bedside to discuss discharge planning. Pt is off the floor for surgery to repair her humeral fracture. [employer] spoke with pt's spouse via telephone to attempt assessment. Pt's spouse states things have been going fine at home however did not recall that the pt had been admitted just 5 days prior. [employer] did not pursue assessment any further. t/c to Hunter Persaud with [facility] to notify that pt was admitted and provide access. Brandy is following. PT evaluation is pending. A: [place]. P: Anticipate pt to discharge back home with resumed [facility]; [employer] to follow up with pt to complete assessment and discharge planning when pt is appropriate. SHANNAN Landeros
[2016-11-08] MEDS ORDERED: Lidocaine 1%-Epi 1:100,000 50 mL Inj INJ ONE (13:42)
[2016-11-08] MEDS ORDERED: HYDROcodone-APAP 5-325 mg Tablet PO PRN (14:10)
[2016-11-08] MEDS ORDERED: Acetaminophen IV 1,000 MG in IV Premix 1 EACH IV SCH (14:10)
--- NOTE | 2016-11-08 14:12 | PCM.ANEP1 ---
Post Anesthesia Phase 1 PACU Phase 1 Assessment Date of Service: Nov 08, 2016 Vital Signs Vital Signs Date Time Temp Pulse Resp B/P Pulse Ox O2 Delivery O2 Flow Rate FiO2 11/08/16 08:00 36.8 75 10 153/81 98 Nasal Cannula 2.00 11/08/16 08:00 Supplement Oxygen 11/08/16 08:00 76 Anesthetic Administered: GA Level of Alertness: Drowsy, not talking YOUNG's with Equal Strength: Yes Pain: No Pain Scale Score: 5 Nausea or Vomiting: No Cardiovascular Function and Hy: Yes Airway Device: Endotrachial Tube Oxygen Delivery: Simple Mask Lungs: Clear to Auscultation Dermatome Level: Full Sensation Complications: No Follow up Care: No Patient Instructions Provided: Yes Gokul Stevenson MD Nov 08, 2016 14:12
[2016-11-08] MEDS ORDERED: ALEN70TA2 PO (14:46)
--- NOTE | 2016-11-08 15:18 | DRSVH ---
PROCEDURE: X-RAY RIGHT HUMERUS, MINIMUM TWO VIEWS ([id number]) INDICATIONS: post op TECHNIQUE: 2 views of the humerus were acquired. COMPARISON: [facility], CR, XR HUMERUS 2VW RT, 11/08/2016, 3:53. FINDINGS: Extensive postoperative changes of the humerus are present related to a complicated open reduction an d internal fixation procedure of the right humerus. The fracture fragments are appropriately aligned . The orthopedic hardware is intact. No new fractures are seen. There is no obvious dislocation. Expected postoperative changes within the overlying soft tissues are present. No unexpected radiopaq ue foreign bodies are evident. Numerous skin arsalan are present. IMPRESSION: Significantly improved alignment of the right humeral fracture, status post ORIF. Dictated by: Danny Gifford M.D. on 11/08/2016 at 14:15 Approved by: Danny Gifford M.D. on 11/08/2016 at 14:16
--- NOTE | 2016-11-08 15:22 | NUR ---
Pt returned from PACU at 1515hrs Pt is awake and conversive but confuse to date, place and situation. She is somewhat un coperative but also pleasant in her confusion. BP is 144/47, sats 96% on room air, she is in SR in the 80's. Surgical site is CDI, sling is on and right hand is slightly cool, with equal senstion as her left fingers and she is able to wriggle her fingers.
[2016-11-08] MEDS: 0.9% Sodium Chloride 1,000 ML IV SCH (15:32)
[2016-11-08] MEDS ORDERED: Clindamycin Inj 600 MG in IV Premix 1 EACH IV SCH (16:30)
[2016-11-08] MEDS ORDERED: Succinylcholine Chloride 20 mg/mL 5 mL Inj ONE (18:17)
[2016-11-08] MEDS ORDERED: fentaNYL-PF 50 mCg/mL 2 mL Inj ONE (18:17)
[2016-11-08] MEDS ORDERED: Propofol 10,000 mCg/mL 20 mL Inj ONE (18:17)
--- NOTE | 2016-11-08 18:28 | PCM.PNMED ---
Subjective Date of Service Nov 08, 2016 Subjective 76yo F with HTN, type 2 diabetes, osteoporosis, and parkinson's disease with recent ORIF of right distal humerus (discharge 11/03) admitted following mechanical ground level fall with subsequent findings of right humerus fracture. She is to the operating room this afternoon. Pain is well controlled at present. Exam Vital Signs Vital Sign - Last Date Time Temp Pulse Resp B/P Pulse Ox O2 Delivery O2 Flow Rate FiO2 11/08/16 15:15 Supplement Oxygen 11/08/16 15:00 80 13 153/65 96 11/08/16 14:20 10 11/08/16 14:05 36.5 Intake and Output 11/07/16 11/07/16 11/08/16 Cumulative From/Thru 15:00 23:00 07:00 11/08/16 02:00 - 11/08/16 06:28 Intake Total 73 ml 73 ml Output Total 250 ml 250 ml Balance -177 ml -177 ml Intake IV Total 73 ml 73 ml Output Urine Total 250 ml 250 ml Exam General: Elderly woman with mild confusion, no acute distress HEENT: sclerae anicteric, oral mucosa moist Neck: no JVD Chest: clear to auscultation Cardiac: S1S2, no murmur Abdomen: BS normal, non-tender Extremities: Right upper extremity bandaged and painful to palpate Neuro: A&O with mild cognitive impairment, cranial nerves symmetric IVs and Medications Medications Reviewed: Medications were reviewed in detail Lab and Diagnostics Result Diagram: 11/08/16 0200 11/08/16 0200 X-Rays, CTs and MRIs PROCEDURE: X-RAY RIGHT HUMERUS, MINIMUM TWO VIEWS ([id number]) IMPRESSION: 1. Mildly displaced and angulated humeral midshaft fracture proximal to surgical hardware in the distal humerus. Dictated by: Jemal Chowdhury M.D. on 11/08/2016 at 8:49 PROCEDURE: X-RAY CHEST ONE VIEW, PORTABLE ([id number]) IMPRESSION: 1. No acute cardiopulmonary disease. Dictated by: Jemal Chowdhury M.D. on 11/08/2016 at 8:51 . Assessment & Plan 76yo F with past medical history of HTN, type 2 diabetes, osteoporosis, and parkinson's disease with recent ORIF of right distal humerus (discharge 11/03) admitted following mechanical ground level fall with subsequent findings of right humerus fracture. # Right humerus fracture, acute -Postoperative care with pain management per Ortho service - Continue venous thromboembolism prophylaxis # Diabetes mellitus, type 2, chronic -continue metformin following discharge -SSI -diabetic diet when taking PO # Hypertension, chronic continue ARB # Parkinson's disease, chronic -continue carbidopa-levadopa at 2 pills every morning, 1 pill at noon, 2 pills at bedtime # Osteoporosis - Plan to continue Fosamax at discharge # Syncopal episodes, chronic -may be playing a role in GLF -tele - orthostatic vital signs # Ground level fall, acute -increase amount of falls recently -PT/OT prior to discharge to assess for home safety # Lower extremity edema, unknown chronicity -[facility] Prophylaxis: Sub-Q Heparin (Unfractionated) Resuscitation Status: CPR: Attempt Resuscitation Time spent 25 min Nik Talbot MD Nov 08, 2016 18:28
--- NOTE | 2016-11-08 18:44 | DRSVH ---
PROCEDURE: US VENOUS LEG DUPLEX BILATERAL INDICATIONS: DVT? TECHNIQUE: Real-time imaging, as well as color and pulse Doppler interrogation, were performed of the deep veins of both legs from the inguinal ligament to the popliteal fossa. COMPARISON: None. FINDINGS: The deep veins are normally compressible, and free of intraluminal thrombus. Color and pu lse Doppler demonstrate normal phasic intravascular flow. There is normal augmentation response to d istal compression maneuver. IMPRESSION: No evidence for deep venous thrombosis is found in the right lower extremity with this d uplex venous Doppler study. No evidence for deep venous thrombosis is found in the left lower extremity with this duplex venous D oppler study. Dictated by: Chris Esqueda M.D. on 11/08/2016 at 18:42 Approved by: Chris Esqueda M.D. on 11/08/2016 at 18:43
--- NOTE | 2016-11-08 19:09 | NUR ---
P: Resp, Neuro, Pain I,E: Pt requires 2l NC O2 as her sats drop to the low 90's when she is sleeping. Pt continues to be a little confused but is co operative. Pt denies any pain at this time. Tolerating ice chips and sips of water.
[2016-11-08] MEDS: Clindamycin Inj 600 MG in IV Premix 1 EACH IV SCH (20:31)
[2016-11-08] MEDS: Acetaminophen IV 1,000 MG in IV Premix 1 EACH IV SCH (22:13)
--- NOTE | 2016-11-08 22:56 | OP ---
[address] [address] OPERATIVE REPORT PATIENT: AMMON MONDRAGON : 1940 MR#: [id number] ADMIT: 11/08/2016 JOB ID: [id number] DATE OF SURGERY: 11/08/2016 PREOPERATIVE DIAGNOSIS(ES): Right proximal humeral diaphyseal fracture. POSTOPERATIVE DIAGNOSIS(ES): Right proximal humeral diaphyseal fracture. PROCEDURE: Open reduction, internal fixation of right proximal humeral diaphyseal fracture. SURGEON: Alcon Harmon DO. DIRECTOR ELECTRONICS: Gabriele Trevizo PA-C. The assistance of Chris Trevizo PA-C was necessary for help with retraction and for manipulation of the fracture for reduction. He was also essential for primary closure at the conclusion of the case. ANESTHESIA: General. HISTORY: The patient is a pleasant 76-year-old female that originally presented to me almost five weeks out from sustaining a right distal humerus fracture. She was treated last week with open reduction, fixation of right distal humerus fracture. She was doing well and saw me in the office two days ago and had taken off her splint and started working on elbow range of motion. She was supposed to have her first occupational therapy appointment today, but earlier this morning got out of bed and slipped and fell directly onto her right shoulder and sustained a fracture to the proximal diaphysis that extended from the most proximal aspect of the distal humerus fixation. Due to the amount of displacement I discussed with the patient, as well as her family, the risks, benefits, alernatives and indications to proceed with an open reduction, internal fixation of right proximal humeral diaphyseal fracture. They understood the risks include, but are not limited to, neurovascular injury, tendon injury, infection, failure of fixation, stiffness, persistent pain, all of which may require further intervention. The patient had all questions answered. Consent was signed and placed in the chart. PROCEDURE IN DETAIL: The patient was brought to the operating room and placed supine on the operating table. Surgical time-out was performed. Everyone in the room was in agreement. After appropriate anesthesia was obtained, the right upper extremity was prepped and draped in sterile fashion. An anterior approach was utilized to get to the proximal humeral diaphysis. The biceps was retracted medially exposing underlying brachialis. The brachialis was split between dual innervation exposing the fracture site. The fracture was well exposed. Copious irrigation and debridement of the hematoma was performed. Manual reduction was performed followed by application of multiple 3.5 mm lag screws for a total of three screws for lag screw fixation of the humeral diaphysis. The dissection was carried proximally within a deltopectoral interval and further distally again splitting between the internervous plane of the brachialis. A 9-hole 4.5 mm narrow plate was then applied to the anterior cortex of the humeral shaft. Plate was fixed with all nonlocking screws to bridge the lag screw fixation. A total of three screws proximal and three screws distal was utilized. All screws were 4.5 mm cortical screws. The plate distally overlapped the medial plate by two holes and the posterolateral plate by one hole. Copious irrigation was performed. Final hemostasis was achieved. Deep fascia closed with 0-Vicryl, followed by 2-0 Vicryl in subcutaneous tissues, and arsalan for the skin. The patient was then placed into a bulky soft dressing and into a sling. ESTIMATED BLOOD LOSS: 100 cc. COMPLICATIONS: None. DISPOSITION: The patient tolerated the procedure well. Anesthesia was reversed and patient was transferred to PACU for recovery. IMPLANTS: Three 3.5 mm cortical screws used for lag screw fixation, followed by application of a 4.5 mm Synthes narrow large frag plate. POSTOPERATIVE PLAN: The patient will remain in the hospital overnight. Once she is able to be converted to p.o. pain medication she can be discharged to a halfway facility. Discussed with the patient, as well as her family, that it would be more beneficial for her to go halfway facility as they do not have much 24 hour coverage at home, which could lead to more subsequent falls. As far as activity for the right upper extremity she is to remain nonweightbearing, but can work on range of motion of the elbow within the hinged elbow brace that was given to her two days ago, and she can also start working on should range of motion mainly with pendulum exercises and passive supine forward flexion. These are to be started immediately.
--- NOTE | 2016-11-08 23:24 | NUR ---
Report/Transfer Report given to Vicenta Smith RN, all questions answered, patient transferred to room 2030 on bed, no distress noted, Tylenol infusing.
[2016-11-09] VITALS (7 sets, daily range): BP systolic 105–136; BP diastolic 49–68; PULSE 65–87; RESP 15–16; O2SAT 94–98
[2016-11-09] MEDS: 0.9% Sodium Chloride 1,000 ML IV SCH (01:46)
[2016-11-09] MEDS: Insulin Human REGular 300 Unit/3 mL Inj SUBQ SCH ×2 (02:30→08:30)
[2016-11-09 02:39] LABS: BASOPHILS % (AUTO) 0.1 % (0-3); EOSINOPHILS % (AUTO) 0 % (0-5); MONOCYTES % (AUTO) 7.9 % (4-12); Mean Corpuscular Hemoglobin 30.2 pg (27.0-35.0); Mean Corpuscular Volume 90.6 fL (81-100); NEUTROPHILS % (AUTO) 88.3 % (40-74); Platelet Count 204 bil/L (150-400)
[2016-11-09] MEDS: Clindamycin Inj 600 MG in IV Premix 1 EACH IV SCH (03:24)
[2016-11-09] MEDS: Acetaminophen IV 1,000 MG in IV Premix 1 EACH IV SCH ×2 (03:25→09:01)
--- NOTE | 2016-11-09 06:21 | NUR ---
Mentation Pt alert to self only; significantly confused but cooperative with care. Agitated intermittently throughout shift: e.g. at 2300 stating "I need to get up, I'm late for a doctor's appointment because it's eleven in the morning and I need to go and I've been throwing pills at 'him' all morning but I guess he just won't wake up. I've been laying here for hours and I've seen people walking by the window (gestures to door) but nobody's come in. What doctor's office are we at?" Pt repeatedly attempted to get to edge of bed; reorientation attempted, but pt still confused; able to get additional rest once repositioned in bed. Q2H turns in place, bed alarm on. Q4H neuro checks; CSM intact to RUE. Pt reported mild pain x1 throughout shift, PRN ibuprofen administered with pt asleep on reassessment. VSS, tele SR 70s. 2L NC.
--- NOTE | 2016-11-09 07:08 | PCM.PNORTH ---
Subjective Date of Service: Nov 09, 2016 Visit Information: Reason for Visit Humeral Fracture Surgery/Surgery Date Post-Op Day # 1 s/p ORIF R humeral shaft, POD #8 s/p ORIF R distal humerus Date of Admission: Nov 08, 2016 at 03:26 Hospital Day # 1 Subjective Pt with mild confusion this AM. She is able to identify where she is at and who I am. She does state that she feels like people are trying to poison her. She has soreness to the upper arm and that it is a little more painful than the previous surgery. She is nervous to do much to the arm as she does not want to injure it again Objective Exam Objective gen - alert to place and person, pleasant, NAD Ext - drsg C/D/I R UE Pt R arm in sling +Hand swelling but palpable distal pulses and intact sensation in median, radial and ulnar nerve distribution Pt can easily demonstrate a full composite fist, fully extend all fingers and the thumb and abd/add fingers Vital Signs and I/O Vital Sign - Last Date Time Temp Pulse Resp B/P Pulse Ox O2 Delivery O2 Flow Rate FiO2 11/09/16 03:43 73 11/09/16 03:26 36.8 15 105/54 97 Nasal Cannula 2.00 Intake and Output 11/08/16 11/08/16 11/09/16 Cumulative From/Thru 14:59 22:59 06:59 11/08/16 02:00 - 11/09/16 06:21 Intake Total 1100 ml 522 ml 1259 ml 2954 ml Output Total 800 ml 475 ml 1525 ml Balance 1100 ml -278 ml 784 ml 1429 ml Intake Oral 100 ml 50 ml 150 ml IV Total 1100 ml 422 ml 1209 ml 2804 ml Output Urine Total 800 ml 475 ml 1525 ml Lab & Micro Results Laboratory Tests Test 11/08/16 10:15 11/09/16 02:27 Hold Urine Received (Received) White Blood Count 14.8th/mm3 (3.8-10.1) Red Blood Count 4.57mil/mm3 (3.90-5.20) Hemoglobin 13.8g/dL (12.0-15.6) Hematocrit 41.4% (35.0-46.0) Mean Corpuscular Volume 90.6fL (81-100) Mean Corpuscular Hemoglobin 30.2pg (27.0-35.0) Mean Corpuscular Hemoglobin Concent 33.3% (32.0-37.0) Red Cell Distribution Width 12.9% (12.3-15.4) Platelet Count 204bil/L (150-400) Neutrophils (%) (Auto) 88.3% (40-74) Lymphocytes (%) (Auto) 3.4% (14-46) Monocytes (%) (Auto) 7.9% (4-12) Eosinophils (%) (Auto) 0% (0-5) Basophils (%) (Auto) 0.1% (0-3) Result Diagram: 11/09/1622611/08/16 0200 Assessment & Plan Impression POD #1 s/p ORIF R humeral shaft POD#8 s/p ORIF R distal humerus Problems: Plan 1) Pain control -Keep patient comfortable but light on pain meds -Narcotic meds often lead to hallucinations and more deirium for the patient -Start with anti-inflammatories for pain, narcotic meds only for severe pain -Ice to the upper arm -Elevate the right arm, keep hand higher than the elbow -Encourage ROM of the hand 2) PT -Pendulum and passive ROM to the right shoulder starting mainly with passive supine forward flexion -ROM to the right elbow and hand in all planes -Edema control for hand -Pt has hinged elbow brace, please keep brace on at all times (either with patients belongings when checked into ER or at home) 3) Dispo -Discussed with pt, and family and recommend d/c to SNF once stable -HH care is only present currently 6h/day for 6days/week and is insufficient for patients current physical needs VTE Prophylaxis: Sub-Q Heparin (Unfractionated) Resuscitation Status: CPR: Attempt Resuscitation Alcon Harmon DO Nov 09, 2016 07:08
[2016-11-09] MEDS ORDERED: Glucose 40% Oral Gel 15 Gm Tube PO PRN (08:15)
--- NOTE | 2016-11-09 12:16 | PCM.PNORTH ---
Subjective Date of Service: Nov 09, 2016 Visit Information: Reason for Visit Humeral Fracture Surgery/Surgery Date Post-Op Day # Date of Admission: Nov 08, 2016 at 03:26 Hospital Day # Subjective Found patient awake and alert this morning and sitting partially up in bed. No complaints of pain at this time. Patient has her arm partially elevated and she is aware that he needs to be as high as possible. I have discussed with her that we would be discharging her to a group home facility when she is medically stable. His is in attendance at bedside. Postop General: No Complaints, No Shortness of Breath, No Chest Pain Pain Management: PO Objective Exam Objective Alert and oriented 3 and pleasant. Interoperative dressing is intact. Rehabilitation elbow brace is in place. Finger wheel and sensation are intact in right upper extremity distally. No compartment syndrome is noted. There is swelling at the hand and fingers which patient states recedes at night and increases during the day. Montes is present and working Vital Signs and I/O Vital Sign - Last Date Time Temp Pulse Resp B/P Pulse Ox O2 Delivery O2 Flow Rate FiO2 11/09/16 09:06 36.7 73 16 130/62 98 Nasal Cannula 2.00 Intake and Output 11/08/16 11/08/16 11/09/16 Cumulative From/Thru 15:00 23:00 07:00 11/08/16 02:00 - 11/09/16 06:21 Intake Total 1100 ml 522 ml 1259 ml 2954 ml Output Total 800 ml 475 ml 1525 ml Balance 1100 ml -278 ml 784 ml 1429 ml Intake Oral 100 ml 50 ml 150 ml IV Total 1100 ml 422 ml 1209 ml 2804 ml Output Urine Total 800 ml 475 ml 1525 ml Lab & Micro Results Laboratory Tests Test 11/09/16 02:27 White Blood Count 14.8th/mm3 (3.8-10.1) Red Blood Count 4.57mil/mm3 (3.90-5.20) Hemoglobin 13.8g/dL (12.0-15.6) Hematocrit 41.4% (35.0-46.0) Mean Corpuscular Volume 90.6fL (81-100) Mean Corpuscular Hemoglobin 30.2pg (27.0-35.0) Mean Corpuscular Hemoglobin Concent 33.3% (32.0-37.0) Red Cell Distribution Width 12.9% (12.3-15.4) Platelet Count 204bil/L (150-400) Neutrophils (%) (Auto) 88.3% (40-74) Lymphocytes (%) (Auto) 3.4% (14-46) Monocytes (%) (Auto) 7.9% (4-12) Eosinophils (%) (Auto) 0% (0-5) Basophils (%) (Auto) 0.1% (0-3) Result Diagram: 11/09/16 0227 11/08/16 0200 General Appearance: Alert, Oriented X3, Cooperative, No Acute Distress Extremities: No Compartment Syndrom Noted Postop Sensory Motor: Distal Motor Intact, Movement in Fingers, Distal Sensation Intact Activity: Activity per PT (nonweightbearing at the right upper extremity. Patient may pursue range of motion at the elbow in the brace within the settings. The patient may perform pendulums at the shoulder to maintain range of motion. Passive supine forward flexion may be performed) Catheters: Urethral 2 Way Montes Assessment & Plan Impression Cande José is a 76-year-old female who had recently undergone a right humerus ORIF and was discharged to home and suffered a ground-level fall at her house refracturing her proximal right humerus. Patient was returned to the OR on 11/08/[address] Harmon and underwent a right humeral ORIF. Patient is managing quite well under the circumstances and has no complaints at this time. Problems: Plan Postop day #1 from repeat right humerus ORIF performed on 11/08/[address] Alcon Harmon. Nonweightbearing on the right upper extremity with no pushing, pulling or lifting. Maintained right elbow brace in place at all times. Continue formal occupational therapy for mobility at the shoulder, elbow, wrist and hand. Patient may perform range of motion at the elbow within the settings of the brace as they exist now. Patient may perform shoulder pendulums with the brace on. Patient may perform passive supine forward flexion at the shoulder with the brace in place. Continue by mouth pain medication as needed. Continue Lovenox 40 subcutaneous daily for DVT prophylaxis. Maintained interoperative dressing in place until seen in office. Follow-up in 1 week at [facility] orthopedic clinic with Dr. Alcon Harmon. I have attempted to contact hospitalist to discuss patient's case and as of the time of this note have been unsuccessful. Orthopedics thanks [facility] service for their help in the medical management of this patient. Anticipate discharge to group home facility by hospitalist service when patient is determined to be medically stable. VTE Prophylaxis: Sub-Q Heparin (Unfractionated), SCDs (bilateral SCDs) Resuscitation Status: CPR: Attempt Resuscitation Jerson Lin PA-C Nov 09, 2016 12:16
[2016-11-09] MEDS: Insulin LISPRO 300 Unit/3 mL Inj SUBQ SCH ×3 (12:34→20:06)
--- NOTE | 2016-11-09 13:50 | NUR ---
Social Work- Initial Assessment Data: See Initial Assessment. Pt is a 76 year old female admitted 11/08/16 for humeral fracture per H&P. Pt's insurance is [facility]. PCP is Rosibel Bishop PA-C. URBAN met with pt and , Phan [phone], at bedside regarding discharge plan, SW role explained. Pt resides in [place] with her spouse in a one story home where she receives assistance from her with ADLs. Pt has a wheelchair, walker, and cane and she states she has been using all three prior to hospitalization. Pt is open with [facility], Brandy has been notified and is following pt during her hospitalization. DPOA is pt's son Dae Rivers ([phone]). Pt has SNF history at [facility]. PT has evaluated pt, recommending SNF as pt is a falls risk and would benefit from further PT to progress stability, safety, and PROM for R upper extremity. SW explained SNF recommendation to pt and at bedside. Pt and agreeable to SNF referral. SNF CHOICE LIST PROVIDED. Pt chose 1) [facility]. Pt also chose [facility] in [place] as second choice, but pt's insurance is not accepted at [facility]. UR Specialist to fax referral to [facility]. Insurance Authorization will be required prior to discharge. Pt to discharge to SNF pending acceptance and insurance authorization. Paperwork and PASRR in folder. SW will continue to follow. Assessment: Pt who would benefit from SNF. Plan: Referral made to [facility]. Pt to discharge to SNF pending acceptance and insurance authorization. Paperwork and PASRR in folder. SW will continue to follow. SHANNAN Dolan Addendum: 11/09/16 at 1400 by JAMES RODRIGUEZ Amended: Links added. Addendum: 11/09/16 at 1427 by JAMES RODRIGUEZ [facility] has accepted pt with MD Burnham to follow. Insurance Authorization pending. Pt and updated and agreeable to plan. Yeimi Rodriguez, PAD MACHINE OPERATOR Addendum: 11/09/16 at 1454 by JAMES RODRIGUEZ SS T/C to Rosibel at [facility] regarding pt's [facility] Hours. Pt is receiving care 7 days per week from 8 am to 8 pm. [facility] is assisting with breakfast and dinner, transportation to all appointments. [facility] uses a gait belt at all times when pt is ambulating. Pt also receiving Meals on Wheels prior to hospitalization. URBAN updated Rosibel of pt's discharge plan, Rosibel to follow up with the pt throughout SNF placement and hospitalization. Yeimi Rodriguez PAD MACHINE OPERATOR
--- NOTE | 2016-11-09 15:04 | NUR ---
Gave access and faxed facesheet to [facility] per LABORER VINEYARD ( They can accept patient with [facility] to follow) Called and spoke with Nat Vargas CM at [place] and she will review patient for transfer to [facility] today. Addendum: 11/09/16 at 1511 by MICKIE YOUSSEF CM Nat Sanabria called back and her MD reviewed and would like to see patient stay one more night. MD is requesting to see patient work with PT tomorrow and then they will make decision tomorrow. Updated LABORER VINEYARD
--- NOTE | 2016-11-09 19:08 | PCM.PNMED ---
Subjective Date of Service Nov 09, 2016 Subjective 76yo F with HTN, type 2 diabetes, osteoporosis, and parkinson's disease with recent ORIF of right distal humerus (discharge 11/03) admitted following mechanical ground level fall with subsequent findings of right humerus fracture. Pain is well controlled at present. She remains mildly confused but not agitated. Family reports this is similar to her baseline. Exam Vital Signs Vital Sign - Last Date Time Temp Pulse Resp B/P Pulse Ox O2 Delivery O2 Flow Rate FiO2 11/09/16 16:31 36.9 71 15 110/49 96 Nasal Cannula 2.00 Intake and Output 11/08/16 11/08/16 11/09/16 Cumulative From/Thru 15:00 23:00 07:00 11/08/16 02:00 - 11/09/16 06:21 Intake Total 1100 ml 522 ml 1259 ml 2954 ml Output Total 800 ml 475 ml 1525 ml Balance 1100 ml -278 ml 784 ml 1429 ml Intake Oral 100 ml 50 ml 150 ml IV Total 1100 ml 422 ml 1209 ml 2804 ml Output Urine Total 800 ml 475 ml 1525 ml Exam General: Elderly woman with mild confusion, no acute distress HEENT: sclerae anicteric, oral mucosa moist Chest: clear to auscultation Cardiac: S1S2, no murmur Abdomen: BS normal, non-tender Extremities: Right upper extremity bandaged and painful to palpate Neuro: A&O with mild cognitive impairment, cranial nerves symmetric IVs and Medications Medications Reviewed: Medications were reviewed in detail Lab and Diagnostics Result Diagram: 11/09/16 0227 11/08/16 0200 X-Rays, CTs and MRIs PROCEDURE: X-RAY RIGHT HUMERUS, MINIMUM TWO VIEWS ([id number]) IMPRESSION: 1. Mildly displaced and angulated humeral midshaft fracture proximal to surgical hardware in the distal humerus. Dictated by: Jemal Chowdhury M.D. on 11/08/2016 at 8:49 PROCEDURE: X-RAY CHEST ONE VIEW, PORTABLE ([id number]) IMPRESSION: 1. No acute cardiopulmonary disease. Dictated by: Jemal Chowdhury M.D. on 11/08/2016 at 8:51 . Assessment & Plan 76yo F with past medical history of HTN, type 2 diabetes, osteoporosis, and parkinson's disease with recent ORIF of right distal humerus (discharge 11/03) admitted following mechanical ground level fall with subsequent findings of right humerus fracture. # Right humerus fracture, acute -Postoperative care with pain management per Ortho service - Continue venous thromboembolism prophylaxis - Anticipate discharge to rehabilitation SNF on 11/10 # Diabetes mellitus, type 2, chronic. Patient glucose control is at goal. -continue metformin following discharge -SSI -diabetic diet # Hypertension, chronic. Her ARB has been held, but blood pressure is fine without it at present. - Resume losartan as needed # Parkinson's disease, chronic -continue carbidopa-levadopa at 2 pills every morning, 1 pill at noon, 2 pills at bedtime # Osteoporosis - Plan to continue Fosamax at discharge # Syncopal episodes, chronic -may be playing a role in GLF -tele - orthostatic vital signs # Ground level fall, acute -increase amount of falls recently -PT/OT prior to discharge to assess for home safety # Lower extremity edema, unknown chronicity -Follow clinically VTE Prophylaxis: Sub-Q Heparin (Unfractionated), SCDs (bilateral SCDs) Resuscitation Status: CPR: Attempt Resuscitation Time spent 25 minutes Nik Talbot MD Nov 09, 2016 19:08
[2016-11-09] MEDS ORDERED: Insulin GLARgine 100 Unit/mL Syringe SUBQ SCH (21:00)
[2016-11-10 00:50] VITALS: BP 122/48; PULSE 75; RESP 17; O2SAT 95
[2016-11-10 05:18] VITALS: BP 117/50; PULSE 79; RESP 16; O2SAT 96
[2016-11-10 05:26] VITALS: PULSE 88
--- NOTE | 2016-11-10 05:41 | NUR ---
Pain Pt denied pain at beginning of shift and reported RUE comfortable without interventions. C/O 9 pain at approx. 0130; 400mg ibuprofen administered and ice pack placed, patient repositioned for comfort. Pt reported relief only to 01/28, but able to get additional rest. Upon further reassessment, pt reported pain at 4/10. Pt alert to self only at night but cooperative with care and able to verbalize needs, though needs consistent reminders to use call light instead of yelling. Bed alarm in place. VSS. Tele SR 90s with PVCs. RUE CSM intact, swelling to hand. 1PA to BSC, weak on exertion, needs cueing.
[2016-11-10 08:00] VITALS: PULSE 83
--- NOTE | 2016-11-10 09:00 | NUR ---
[facility] Signed
[2016-11-10] MEDS: Insulin LISPRO 300 Unit/3 mL Inj SUBQ SCH ×3 (09:05→17:15)
[2016-11-10 09:10] VITALS: BP 136/68; PULSE 83; RESP 17; O2SAT 98
--- NOTE | 2016-11-10 11:05 | NUR ---
Ambulation Pt up with 1 person ast to BS and chair for breakfast. Unsteady gait, pt stated she usually walks with a walker at home. Pt unable to walk with a walker here due to her right arm in a sling and francisco wrap. For safety would not recommend going farther than just a stand a pivot to BSC or chair.
--- NOTE | 2016-11-10 11:35 | NUR ---
Social Work: Readiness for Discharge D: Pt discussed in am rounds. Pt is medically stable for discharge to skilled rehab. Pt has been accepted to [facility] with Dr. Burnham to follow. Pt's insurance has not yet authorized this and is awaiting PT notes from today before making their final decision. LODGING HOUSE KEEPER discussed this with PT who states they will not be able to see the pt until this afternoon. LODGING HOUSE KEEPER met with pt and family at bedside to confirm discharge plan and discuss the plan for the day. They agree with plan to discharge to [facility] if authorization is received. LODGING HOUSE KEEPER will update team and pt when authorization is received. A: Pt who is unable to mobilize with the use of her FWW due to humeral fracture and is unsteady with gait. P: Anticipate pt to discharge to [facility] once authorization is received. LODGING HOUSE KEEPER to continue to follow. SHANNAN Landeros Addendum: 11/10/16 at 1649 by FALLON TRAVIS SS [employer] has denied the pt's request for skilled rehab. They have notified the pt. LODGING HOUSE KEEPER met with pt and family at bedside. Pt and family all express concerns with pt going home prematurely especially as this is the second time she has fallen in the last 10 days. LODGING HOUSE KEEPER informed family of insurances decision not to cover the pt's SNF stay. They are willing to pay privately and are requested a private pay rate before being transferred. t/c to [facility]. LODGING HOUSE KEEPER spoke with RN who is covering the admissions line. She is contacting her biztalk administrator to obtain a PP rate. LODGING HOUSE KEEPER informed her that the pt is ready for discharge and is only awaiting that rate before discharge. She will call LODGING HOUSE KEEPER back when information is obtained. Addendum: 11/10/16 at 1717 by FALLON TRAVIS SS LODGING HOUSE KEEPER received private pay rates for a 2 week stay. For a private room pt would be responsible for $5000/2 weeks and for semi-private $4810/2 weeks. Pt and spouse would like a semi-private room. They understand they will have to provide payment upfront. Spouse will bring a check to [facility] tomorrow morning. Transportation has been arranged for 6:00pm tonight. RN and aware. SHANNAN discussed appeal process with [place] and provided appeal phone number ([phone]). Pt's daughter will assist pt and spouse with this. Orders and prescriptions faxed to [facility] Copies on chart
[2016-11-10] MEDS ORDERED: MELO7.5T13 PO (12:36)
[2016-11-10] MEDS ORDERED: OMEP20CA11 PO (12:36)
[2016-11-10 12:46] VITALS: BP 120/58; PULSE 65; RESP 16; O2SAT 100
[2016-11-10] MEDS ORDERED: LOV40 SUBQ (12:50)
--- NOTE | 2016-11-10 13:56 | NUR ---
Case Management D: PT notes from today now available. I verified with Roxana at [facility] that the only clinicals they need are todays PT notes. PT notes and most recent SIZE MAKER d/c note faxed to [facility]. P: Await determination of SNF auth request Addendum: 11/10/16 at 1553 by DANIELITO LEWIS SS Per Ana Rosa at [facility], SNF auth is denied. Their MD has found pt to be in need of more penitentiary care instead of rehab. Ana Rosa is going to call pt and inform her of decision. I have updated Mamta CAMPBELL with decision. Ana Rosa will be providing pt with appeal number of [phone] should pt decide to appeal this decision.
--- NOTE | 2016-11-10 16:43 | PCM.DIMED ---
Discharge Instructions Date of Service Nov 10, 2016 Dates of Hospitalization Nov 08, 2016 at 03:26 Discharge Diagnosis Discharge Diagnosis Fracture of right humerus; open reduction and internal fixation; falling episode ; osteoporosis Diet No restrictions Activity Other (as per the physical therapy staff, and instrucions below) Patient Instructions Assistance with ambulation at all times. Nonweightbearing on the right upper extremity with no pushing, pulling or lifting. Maintained right elbow brace in place at all times. Continue formal occupational therapy for mobility at the shoulder, elbow, wrist and hand. Patient may perform range of motion at the elbow within the settings of the brace as they exist now. Patient may perform shoulder pendulums with the brace on. Patient may perform passive supine forward flexion at the shoulder with the brace in place. Continue by mouth pain medication as needed. Continue Lovenox 40 subcutaneous daily for DVT prophylaxis. Maintained interoperative dressing in place until seen in office. Follow-up in 1 week at [facility] orthopedic clinic with Dr. Alcon Harmon. Follow-up plan Home with home health care assistance. Follow-up Provider: Alcon Harmon DO Follow-up with PCP in: 1 week Provider: Rosibel Bishop PA-C Follow-up in: Other (call for next available appointment to evaluate falling and osteoporosis) Nik Talbot MD Nov 10, 2016 12:48
--- NOTE | 2016-11-10 17:14 | PCM.DC.MED ---
Discharge Summary Date of Service Nov 10, 2016 Dates of Hospitalization Date of Hospital Admission Nov 08, 2016 at 03:26 Date of Discharge: Nov 10, 2016 Providers: Admitting Physician: Estela De La Rosa DO Primary Care Physician: Rosibel Bishop PA-C Attending Physician: Estela De La Rosa DO Diagnosis at Time of Discharge Diagnosis at Time of Discharge Right humerus fracture Procedures XRay, CTs & MRIs PROCEDURE: X-RAY RIGHT HUMERUS, MINIMUM TWO VIEWS ([id number]) IMPRESSION: 1. Mildly displaced and angulated humeral midshaft fracture proximal to surgical hardware in the distal humerus. Dictated by: Jemal Chowdhury M.D. on 11/08/2016 at 8:49 PROCEDURE: X-RAY CHEST ONE VIEW, PORTABLE ([id number]) IMPRESSION: 1. No acute cardiopulmonary disease. Dictated by: Jemal Chowdhury M.D. on 11/08/2016 at 8:51 . Invasive Procedures DATE OF SURGERY: 11/08/2016 PREOPERATIVE DIAGNOSIS(ES): Right proximal humeral diaphyseal fracture. POSTOPERATIVE DIAGNOSIS(ES): Right proximal humeral diaphyseal fracture. PROCEDURE: Open reduction, internal fixation of right proximal humeral diaphyseal fracture. SURGEON: Alcon Harmon DO. . Brief History History of Present Illness (per admission note): 76yo F with past medical history of HTN, type 2 diabetes, osteoporosis, and parkinson's disease with recent ORIF of right distal humerus (discharge 11/03) admitted following mechanical ground level fall with subsequent findings of right humerus fracture. Mrs. Becker was seen most recently by Dr. Harmon for ORIF of right humerus following fall initially in [place] and was treated conservatively in [place], [place] and with worsening discomfort sought out further treatment. She was found to have further displacement of the distal humerus fracture. ORIF was completed on 11/01 however following procedure she remained hypoxic and was admitted for observation. She was noted in previous hospitalization to have some mentation changes as well as aspiration. On 11/08 prior to admission, Mrs. Becker was getting out of bed and tripped and fell. EMS was called. XR in [facility] concerning for second humerus fracture . Hospital Course # Right humerus fracture, acute -Postoperative care with pain management per Ortho service - Continue venous thromboembolism prophylaxis Lovenox 40 mg subcutaneous daily - Anticipate discharge to rehabilitation [facility] on 11/10 - Follow-up one week with Dr. Harmon # Diabetes mellitus, type 2, chronic. Patient glucose control is at goal. -continue metformin following discharge -diabetic diet # Hypertension, chronic. Her ARB has been held, but blood pressure is fine without it at present. - Resume losartan as needed # Parkinson's disease, chronic -continue carbidopa-levadopa at 2 pills every morning, 1 pill at noon, 2 pills at bedtime # Osteoporosis - Plan to continue Fosamax at discharge # Syncopal episodes, chronic -may be playing a role in GLF - She was monitored on telemetry with no arrhythmia noted - Lying downto sitting orthostatic vital signs were unremarkable # Ground level fall, acute. Multifactorial Parkinson's, cognitive, neuromuscular. -increase amount of falls recently -assess for home safety # Lower extremity edema, unknown chronicity -Follow clinically Exam Vital Signs (Last) Date Time Temp Pulse Resp B/P Pulse Ox O2 Delivery O2 Flow Rate FiO2 11/10/16 12:46 36.6 65 16 120/58 100 Room Air 11/09/16 16:31 2.00 Exam General: Elderly woman with mild confusion, no acute distress HEENT: sclerae anicteric, oral mucosa moist Chest: clear to auscultation Cardiac: S1S2, no murmur Abdomen: BS normal, non-tender Extremities: Right upper extremity bandaged in sling Neuro: A&O with mild cognitive impairment, cranial nerves symmetric Test 11/08/16 02:00 11/08/16 10:15 11/09/16 02:27 Hold Purple Top Tube Received (Received) Prothrombin Time 10.0sec (8.1-12.5) Prothromb Time International Ratio 0.94ratio Activated Partial Thromboplast Time 25.7sec (22.8-33.0) Hold Blue Top Tube Received (Received) Sodium Level 140mEq/L (134-144) Potassium Level 4.4mEq/L (3.5-5.2) Chloride Level 100mEq/L (97-108) Carbon Dioxide Level 23mmol/L (18-29) Blood Urea Nitrogen 22mg/dL (8-27) Creatinine 0.80mg/dL (0.57-1.00) Estimat Glomerular Filtration Rate 99mL/min (>59) Glucose Level 162mg/dL (60-99) Hemoglobin A1c 6.3% (4.8-5.6) Calcium Level 8.7mg/dL (8.5-10.1) Magnesium Level 1.8mg/dL (1.6-2.6) Total Bilirubin 0.5mg/dL (0.0-1.2) Aspartate Amino Transf (AST/SGOT) 7U/L (0-50) Alanine Aminotransferase (ALT/SGPT) 5U/L (0-32) Alkaline Phosphatase 68U/L (25-165) Pro-B-Type Natriuretic Peptide 955pg/mL (0-738) Total Protein 6.0g/dL (6.4-8.4) Albumin 3.3g/dL (3.4-5.0) Hold [place] Top Tube Received (Received) Hold Urine Received (Received) White Blood Count 14.8th/mm3 (3.8-10.1) Red Blood Count 4.57mil/mm3 (3.90-5.20) Hemoglobin 13.8g/dL (12.0-15.6) Hematocrit 41.4% (35.0-46.0) Mean Corpuscular Volume 90.6fL (81-100) Mean Corpuscular Hemoglobin 30.2pg (27.0-35.0) Mean Corpuscular Hemoglobin Concent 33.3% (32.0-37.0) Red Cell Distribution Width 12.9% (12.3-15.4) Platelet Count 204bil/L (150-400) Neutrophils (%) (Auto) 88.3% (40-74) Lymphocytes (%) (Auto) 3.4% (14-46) Monocytes (%) (Auto) 7.9% (4-12) Eosinophils (%) (Auto) 0% (0-5) Basophils (%) (Auto) 0.1% (0-3) Discharge Medications Discharge Medications Alendronate Sodium (Fosamax) 70 Mg Tablet 70 MG PO WEEKLY (Reported) Aspirin (Aspirin) 81 Mg Tablet 81 MG PO HS (Reported) Carbidopa/Levodopa 25-100 mg (Carbidopa/Levodopa 25-100 mg) 1 Each Tablet 2 TABLET PO BID (Reported) Carbidopa/Levodopa 25-100 mg (Carbidopa/Levodopa 25-100 mg) 1 Each Tablet 1 TABLET PO Noon (Reported) Enoxaparin (Lovenox) 40 Mg/0.4 Ml Syringe 40 MG SUBQ DAILY Prescribed by: ELBERT REAL MD Latanoprost (Latanoprost) 2.5 Ml Drops 1 GTT OP HS (Reported) As needed Meloxicam (Mobic) 7.5 Mg Tablet 7.5 MG PO DAILY PRN PRN For Pain Prescribed by: ELBERT REAL MD Omeprazole (Omeprazole) 20 Mg Capsule.dr 20 MG PO DAILY PRN PRN propylaxis NSAID As needed if taking Mobic for pain. Prescribed by: ELBERT REAL MD Followup Plan Disposition: [facility] Follow-up plan Nonweightbearing on the right upper extremity with no pushing, pulling or lifting. Maintained right elbow brace in place at all times. Continue formal occupational therapy for mobility at the shoulder, elbow, wrist and hand. Patient may perform range of motion at the elbow within the settings of the brace as they exist now. Patient may perform shoulder pendulums with the brace on. Patient may perform passive supine forward flexion at the shoulder with the brace in place. Continue by mouth pain medication as needed. Continue Lovenox 40 subcutaneous daily for DVT prophylaxis. Maintained interoperative dressing in place until seen in office. Follow-up in 1 week at [facility] orthopedic clinic with Dr. Alcon Harmon. Discharge Diet: Diabetic Discharge Activity: Other (per physical therapy staff) Follow-up Provider: Alcon Harmon DO Follow-up with PCP in: 1 week Time spent 35 minutes copies to: Rosibel Bishop PA-C; Alcon Harmon DO Elbert Real MD Nov 10, 2016 12:51
--- NOTE | 2016-11-10 18:35 | NUR ---
Transfer to [facility] Pt transfered at 1800 to [facility]. Report called to staff at [facility]. Vitals stable, IV and tele removed. Right arm in sling. All belongings including dentures, glasses, and cellphone taken with.
--- NOTE | 2016-11-12 13:08 | NUR ---
Social Work Note D/A: T/c from pts dtr. Keshia [phone]. Questions re: appeal, provided number in EMR from Ana Rosa at [facility]. Discussed halfway care vs. rehab. Provided [facility] Facility referrals. Dtr. will decide if she is going to move forward with contesting denial. Oly Talbot, [employer]
[2016-11-19] MEDS ORDERED: METF500T4 PO (14:38)
[2016-11-19] MEDS ORDERED: MAGN400O4 PO (14:38)
[2016-11-19] MEDS ORDERED: CHOL10008 PO (14:38)
== END 2016-11-10 18:18 | DRG 494 ==
LOC: SED 01:56 → OBSVTOIN 03:26 → PCC 03:26
PROVIDERS: ADMIT Internal Medicine; ATTEND Internal Medicine
PROC: 0PSF04Z Reposition Right Humeral Shaft with Internal Fixation Device, Open Approach (ICD-10-PCS; principal; 2016-11-08 12:00)
DX: S42.291A Other displaced fracture of upper end of right humerus, initial encounter for closed fracture (principal); W06.XXXA Fall from bed, initial encounter; Z91.81 History of falling; Y93.89 Activity, other specified; Y92.013 Bedroom of single-family (private) house as the place of occurrence of the external cause; Y99.9 Unspecified external cause status; Z79.82 Long term (current) use of aspirin; Z79.84 Long term (current) use of oral hypoglycemic drugs; Z87.891 Personal history of nicotine dependence; G20 Parkinson's disease; I10 Essential (primary) hypertension; E11.9 Type 2 diabetes mellitus without complications; M81.0 Age-related osteoporosis without current pathological fracture

== ENCOUNTER 2016-11-21 10:54 | Inpatient (IN) | payer MEDICARE ==
[2016-11-20] MEDS: Lactated Ringer's 1,000 ML IV SCH (06:00)
[2016-11-21] VITALS (11 sets, daily range): BP systolic 88–165; BP diastolic 41–83; PULSE 69–88; RESP 13–16; O2SAT 93–96
[~2016-11-21] VITALS: Ht 167.6 cm; Wt 67.7 kg
[2016-11-21] MEDS: Lactated Ringer's 1,000 ML IV SCH ×4 (09:42→21:45)
[~2016-11-21 10:54] MED LIST changes: +ALEN70TA2 PO; +Clindamycin Inj 900 MG in IV Premix 1 EACH IV ONE; +Dexamethasone 4 mg/mL Inj IVPUSH PRN; +EPHEDrine Sulfate 50 mg/mL Inj IVPUSH PRN; +HYDROmorphone 1 mg/mL Inj IVPUSH PRN; -IBUP400T22 PO; -LOSA100T29 PO; +LOV40 SUBQ; +Labetalol 5 mg/mL 4 mL Inj IV PRN; +Lactated Ringer's 1,000 ML IV ONE; +Lactated Ringer's 500 ML IV PRN; +MELO7.5T13 PO; +MetoCLOpramide 5 mg/mL 2 mL Inj IVPUSH PRN; +OMEP20CA11 PO; -OXYC5TAB72 PO; +Ondansetron 2 mg/mL 2 mL Inj IVPUSH PRN; -POLY17PO6 PO; +Phenylephrine 10,000 mCg/mL Inj IVPUSH PRN; +fentaNYL-PF 50 mCg/mL 2 mL Inj IVPUSH PRN; +hydrALAZINE 20 mg/mL Inj IVPUSH PRN
[2016-11-21] MEDS ORDERED: Clindamycin 900 mg/50 mL D5W Premix IV ONE (11:17)
[2016-11-21] MEDS ORDERED: Phenylephrine 10,000 mCg/mL Inj ONE (12:31)
[2016-11-21] MEDS ORDERED: Neostigmine 1 mg/mL 10 mL Inj ONE (12:31)
[2016-11-21] MEDS ORDERED: Succinylcholine Chloride 20 mg/mL 5 mL Inj ONE (12:31)
[2016-11-21] MEDS ORDERED: Propofol 10,000 mCg/mL 20 mL Inj ONE (12:31)
[2016-11-21] MEDS ORDERED: Glycopyrrolate 0.2 MG/ML 1mL Inj ONE (12:31)
[2016-11-21] MEDS ORDERED: fentaNYL-PF 50 mCg/mL 2 mL Inj ONE (12:31)
[2016-11-21] MEDS ORDERED: Ondansetron 2 mg/mL 2 mL Inj ONE (12:31)
[2016-11-21] MEDS ORDERED: Rocuronium 10 mg/mL 5 mL Inj ONE (12:31)
--- NOTE | 2016-11-21 14:32 | PCM.HPANE ---
Patient Data Date of Service: November 21, 2016 Surgeon Admitting Provider: Attending Provider:Alcon Harmon DO Primary Care Physician:Rosibel Bishop PA-C Other Provider:Korey Torres Anesthesia Reason for Visit Right Hardware Fracture Ht/WT & BMI Height (Feet): 5 Height (Inches): 6.00 Weight (Kilograms): 67.700 Body Mass Index 23.00 Allergies Coded Allergies: Penicillins (Verified Allergy, Severe, Rash, 11/12/15) TAPE (Verified Allergy, Intermediate, 11/12/15) Uncoded Allergies: cholographin- dye (Allergy, Severe, RASH/SYNCOPE, 03/15/14) Past Anesthesia History Anesthesia History: Denies:: Abnormal Airway, Anesthesia Reactions, Difficult Intubation, Fam Anesthesia Reaction, Fam Malignant Hypertherm, Malignant Hyperthermia Diabetes History Hx Diabetes?: Yes (METFORMIN) Type of Diabetes: Type II Glycemic Control: Oral Medication Current Bedside Blood Glucose: 84 MRSA MRSA: No Medications Blood Thinner: Aspirin Home Meds Incl Beta April: No Active Scripts Enoxaparin (Lovenox)40 Mg/0.4 Ml Mlvoeoy10 Mg SUBQ DAILY #14 SYR Ref 0 Prov:Nik Talbot MD 11/10/16 Omeprazole 20 Mg Capsule.dr20 Mg PO DAILY PRN propylaxis NSAID #14 CAPSULE Ref 0 As needed if taking Mobic for pain. Prov:Nik Talbot MD 11/10/16 Meloxicam (Mobic)7.5 Mg Tablet7.5 Mg PO DAILY PRN For Pain #14 TABLET Ref 0 Prov:Nik Talbot MD 11/10/16 Reported Medications Cholecalciferol (Vitamin D3) (Vitamin D3)1,000 Unit Tab.chew1,000 Unit PO DAILY 11/19/16 Magnesium Hydroxide (Milk of Magnesia)400 Mg/5 Ml Oral.ngow648 Mg PO DAILY 11/19/16 Metformin 500 Mg Cyqizu871 Mg PO BID Ref 0 11/19/16 Alendronate Sodium (Fosamax)70 Mg Nkqwgv58 Mg PO WEEKLY 30 Days Ref 0 11/08/16 Carbidopa/Levodopa 25-100 mg 1 Each Tablet1 Tablet PO Noon 11/08/16 Latanoprost 2.5 Ml Drops1 Gtt OP HS #1 BOTTLE 10/31/16 Carbidopa/Levodopa 25-100 mg 1 Each Tablet2 Tablet PO BID 10/31/16 Aspirin 81 Mg Fnhpph36 Mg PO HS Ref 0 10/31/16 History History of ENT Problems?: Yes HEENT History: Positive for:: Cataracts Denies:: Abnormal Airway Difficult Intubation Dysphagia Hearing Problem Sinus Problem TMJ Denture Type: Full- Upper Partial- Lower Teeth Condition: Missing Teeth Hx of Heart Problems?: Yes Cardiovascular History: Positive for:: Chest Pain (with activity) Hypertension Irregular Heartbeat (PVC PACs) Denies:: AICD Abdominal Aortic Aneurism Atrial Fibrillation Cardiac Surgery Congestive Heart Failure Edema Heart Murmur Pacemaker Rheumatic Fever Thrombophlebitis Valvular Heart Disease Hx of Respiratory Problem?: No Respiratory History: Positive for:: Dyspnea Denies:: Asthma COPD Chest Surgery Cough Emphysema Hemoptysis Oxygen Administration Pneumonia Pulmonary Embolism Tuberculosis Use of C-PAP Machine Hx Neurologic Problems?: Yes Neurological History: Positive for:: Dementia Dizziness Headaches Parkinson's Disease Denies:: Alzheimer's Disease CVA Multiple Sclerosis Seizures Hx of GI Problems?: Yes Hx of Problems?: No Genitourinary History: Denies:: HX of Hemodialysis Kidney Stones Urinary Tract Infection (past hx of) HX of Peritoneal Dialysis: No Female Hx: Denies:: Currently Endometriosis Pelvic Inflammatory Problems with Breasts? Skin History: Denies:: History Skin Disorders? Pressure Ulcers Hx Musculoskeletal Problems?: Yes Musculoskeletal History: Positive for:: Back Injury (hx of vertebral compression fx) Musculoskeletal Trauma (right humeral fx - multiple fixations current admission problem) Denies:: Degenerative Joint Joint Replacement Systemic Lupus Hx of Psycho/Social Problems?: Yes Psycho Social History: Positive for:: Anxiety Denies:: Bipolar Disorder Hx Depression Suicide Attempt Hx Surgeries?: Yes (R humerus ORIF, MARYAM,APPY,HERNIA RPR,LYSIS OF ADHESIONS, HYST,EXC NODULE ) Hx Any Other Health Problems?: Yes Other History: Positive for:: Hospitalization Denies:: Cancer Endocrine Disease Thyroid Disease History Blood Transfusions: Denies:: Blood Transfuse Reaction Blood Transfusions Hx Diabetes: Yes (METFORMIN)Bedside Blood Glucose: 84 Hx Alcohol Use: NoHx Substance Use: No Smoking Status: Former Smoker Have You Smoked inLast 12 mo: No Stop/Bang Treated for Sleep Apnea?: No Do You Have a CPAP Machine?: No S-Snoring: Do You Snore Loudly: No T-Tired: feel tired, fatigued: No O-Obsered: Observed not breath: No P-Blood Pressure: treated: No B- Body Mass Index > 35 kg/m2: No A- Age over 50: Yes N- Neck Large Circumference: No G- Gender Male: No GERALDINE Total Score: 1 GERALDINE Risk Assessment: Low Risk, <3 Yes Risk Assessment Category Category 1A: Patient has history of documented sleep apnea, and HAS NOT received any narcotic, sedative or anesthesia administration during this stay. Category 1B: Patient has history of documented sleep apnea, and HAS received any narcotic , sedative or anesthesia administration during this stay Category 2: Patient has SUSPECTED Obstructive Sleep Apnea, and HAS received any narcotic , sedative or anesthesia administration during this stay. Category 3: Patient has SUSPECTED Obstructive Sleep Apnea and HAS NOT received narcotic, sedative or anesthesia administration during this stay. Category 4: Outpatient in Procedural Areas with known sleep apnea or who screen positive for High Risk via the STOP/BANG questionnaire. Exam Exam Vital Signs Vital Signs Date Time Temp Pulse Resp B/P Pulse Ox O2 Delivery O2 Flow Rate FiO2 11/21/16 11:15 36.2 69 13 144/59 93 Room Air General Appearance: Alert, Cooperative, Mild Distress HEENT/AIRWAY: MP 2, Mouth Opening (OK, dentures) Lungs: Clear to Auscultation, Normal Air Movement Heart: Regular Rate/Rhythm, Normal S1, Normal S2 Meds/Labs/Diagnostics Bedside Blood Glucose: 84 Plan Impression Patient chart reviewed, patient interviewed and anesthestic plan with risks, benefits, and alternatives discussed, and informed consent obtained. NPO per Anesth. Guidelines: Yes ASA Physical Status: ASA3 Severe Disease Anesthetic Plan: GA Bene/Risks/Altern/Consents: Yes HP Complete Prior to Induction: Yes Nik Morrison MD November 21, 2016 13:36
[2016-11-21] MEDS ORDERED: Bupivacaine-MPF 0.25%/EPI 30 mL Inj INFILTRATE ONE (15:57)
[2016-11-21] MEDS ORDERED: Lactated Ringer's 1,000 ML IV ONE (16:04)
[2016-11-21] MEDS ORDERED: Ondansetron 2 mg/mL 2 mL Inj IVPUSH PRN (16:40)
[2016-11-21] MEDS ORDERED: Magnesium Hydroxide 10 mL Oral Concentration PO PRN (16:40)
[2016-11-21] MEDS ORDERED: Polyethylene Glycol (PEG) 17 Gm Powder PO PRN (16:40)
[2016-11-21] MEDS ORDERED: Sodium Biphos-Phos 133 mL Enema RECTAL PRN (16:40)
[2016-11-21] MEDS ORDERED: diphenhydrAMINE 25 mg Capsule PO PRN (16:40)
--- NOTE | 2016-11-21 17:13 | PCM.ANEP1 ---
Post Anesthesia Phase 1 PACU Phase 1 Assessment Date of Service: November 21, 2016 Vital Signs Vital Signs Date Time Temp Pulse Resp B/P Pulse Ox O2 Delivery O2 Flow Rate FiO2 11/21/16 16:50 85 13 165/48 94 Room Air 11/21/16 16:45 88 15 154/57 95 Room Air 11/21/16 16:40 36.5 85 14 88/68 95 Room Air 11/21/16 11:15 36.2 69 13 144/59 93 Room Air Anesthetic Administered: GA Level of Alertness: Sleepy, easy to arouse YOUNG's with Equal Strength: Yes Pain: No Nausea or Vomiting: No Cardiovascular Function and Hy: Yes Oxygen Delivery: Simple Mask Lungs: Normal Air Movement Dermatome Level: Full Sensation Complications: No Follow up Care: No Patient Instructions Provided: Yes Nik Morrison MD November 21, 2016 17:13
--- NOTE | 2016-11-21 17:28 | DRSVH ---
PROCEDURE: X-RAY RIGHT HUMERUS, MINIMUM TWO VIEWS ([id number]) INDICATIONS: post opERATIVE HUMERUS TECHNIQUE: 2 views of the humerus were acquired. COMPARISON: [facility], CR, XR HUMERUS 2VW RT, 11/19/2016, 11:35. [facility], CR, XR HUMERUS 2VW RT, 11/08/2016, 14:44. FINDINGS: Bones: No previously unidentified fractures or dislocations. No suspicious bony lesions. Soft tissues: No suspicious soft tissue calcifications. IMPRESSION: Expected postsurgical change, no alteration from prior recent study of 11/19/16. Extensive surgical fixation and cutaneous arsalan are again seen. Normal alignment. Dictated by: Bruce Pearson M.D. on 11/21/2016 at 17:26 Approved by: Bruce Pearson M.D. on 11/21/2016 at 17:26
--- NOTE | 2016-11-21 18:58 | PCM.CHPMED ---
Subjective Date of Service: November 21, 2016 Provider requesting consult: Alcon Harmon DO Primary Physician: Admitting Physician: Alcon Harmon DO Primary Care Physician: Rosibel Bishop PA-C Attending Physician: Alcon Harmon DO [facility] Bedside Blood Glucose: 84 Allergies: Coded Allergies: Penicillins (Verified Allergy, Severe, Rash, 11/12/15) TAPE (Verified Allergy, Intermediate, 11/12/15) Uncoded Allergies: cholographin- dye (Allergy, Severe, RASH/SYNCOPE, 03/15/14) Social History Hx Alcohol Use: NoHx Substance Use: NoHx Tobacco Use: No Smoking Status: Former Smoker Exam Vital Signs Vital Sign - Last Date Time Temp Pulse Resp B/P Pulse Ox O2 Delivery O2 Flow Rate FiO2 11/21/16 17:55 85 15 146/55 95 Room Air 11/21/16 16:40 36.5 Assessment & Plan Assessment HPI: Patient is a 76-year-old female who presents from a nursing facility secondary to right elbow fracture. The patient has had multiple injuries to the right arm and has multiple plates in this right arm. Orthopedic surgery ( Dr. Harmon) consulted us for further assistance with medical management. The patient has dementia and most of her history was taken via chart review. Home medications: Alendronate 70 mg by mouth weekly Aspirin 81 mg by mouth daily Carbidopa levodopa 75178 2 tabs by mouth morning and night one tab in the afternoon Lovenox 40 mg subcutaneous daily Latanoprost 2.5 ml one drop each eye daily at bedtime Milk of magnesia 400 mg daily Mobic 7.5 mg daily when necessary pain Metformin 500 mg by mouth twice a day Omeprazole 20 mg by mouth when necessary NSAIDs Allergies: Penicillin, tape, dye PMHx: Dementia Diabetes Osteoporosis Parkinson's GERD SHx: Multiple right arm/elbow surgeries FHx: Unable to obtain the patient has dementia and no family was present SocHx: Occupation: Retired Tobacco history: Former smoker patient quit 60 years ago former half pack per day smoker for 15 years Alcohol use: Patient denies Drug use: Patient denies ROS: A complete review of systems was performed or attempted to be performed. Please see HPI for pertinent positives, all other systems are negatives. Physical Exam: GEN: Patient was awake, alert, responding appropriately to questions HEENT: Pupils equal round and reactive to light, extraocular eye muscles intact , Neck soft supple, trachea midline, nomocephalic/atraumatic CV: +S1/S2, regular rate and rhythm, no murmurs auscultated Respiratory: CTAB, no wheezes, rales, rhonchi GI: +bowel sounds x4, soft, compressible, nontender to palpation EXT: no clubbing, cyanosis, edema in the LE MSK: Right arm in a sling and currently bandaged with a drain in place Neuro: Cranial nerves II-XII grossly intact Psych: mood and affect were appropriate Assessment and Plan 76-year-old female with right arm fracture status post ORIF 11/21/16 Right arm fracture postop day 0 -Orthopedics following -Pain control, no narcotics Anemia -Continue to monitor and transfuse if necessary Diabetes -Continue metformin 500 mg by mouth twice a day GERD -Omeprazole daily 20 mg Parkinson's disease Continue home dose of carbidopa/levodopa DVT prophylaxis: Lovenox managed by orthopedics Diet: Diabetic Code Status: Full code until family can be contacted. Patient has dementia and unable to make this decision. Problems: Limited Interventions: Compressions Time spent 1 hour Roshni Castillo DO November 21, 2016 18:58
--- NOTE | 2016-11-21 19:24 | NUR ---
Post op Pt arrived on [facility] at 1810, pt smiling and stating her pain is 7/10. Jonathan wrap and sling to right arm. Hemovac in place. no doherty, no complaints of nausea. oriented to room and call light, see post op assessment. care continued. pt oriented to self and only, pt stated she did not have surgery today.
[2016-11-21] MEDS ORDERED: Pantoprazole 40 mg ER24 Tablet PO PRN (19:50)
[2016-11-21] MEDS: Ketorolac 15 mg/mL Inj IVPUSH PRN (20:33)
[2016-11-21] MEDS: Senna-Docusate 8.6-50 mg Tablet PO SCH (20:33)
[2016-11-22] VITALS (11 sets, daily range): BP systolic 95–160; BP diastolic 54–78; PULSE 67–90; RESP 14–20; O2SAT 93–98
[2016-11-22] MEDS: Clindamycin Inj 600 MG in IV Premix 1 EACH IV SCH ×4 (00:30→21:46)
[2016-11-22] MEDS: Sodium Chloride LOK Flush 10 mL Syringe IV SCH ×3 (00:30→16:30)
[2016-11-22] MEDS: Ketorolac 15 mg/mL Inj IVPUSH PRN ×2 (02:23→21:45)
[2016-11-22 04:20] LABS: APPEARANCE,URINE HAZY (CLEAR,HAZY); COLOR,URINE DARK YELLOW (YELLOW); OCCULT BLOOD,URINE NEGATIVE (NEGATIVE); PH,URINE 6.5 (5.0-8.0); UROBILINOGEN,URINE NORMAL (NORMAL)
[2016-11-22 05:59] LABS: BASOPHILS % (AUTO) 0.1 % (0-3); EOSINOPHILS % (AUTO) 2.4 % (0-5); Mean Corpuscular Hemoglobin 25.2 pg (27.0-35.0); Mean Corpuscular Volume 83.6 fL (81-100); Platelet Count 233 bil/L (150-400)
--- NOTE | 2016-11-22 06:00 | NUR ---
NOC PT has been pleasantly confused. She is at her baseline and is oriented to self only. PT does follow commands. Asad alarm on bed. PT did make one attempt to get OOB by herself. Her gait is steady, but quick due to Parkinson;s. PT takes all meds whole without incident. Pain has been well managed with toradol. Pt is a 1PA to BR. UA sent and had positive results. Just received call from lab with H/H of 6.0 and 19.9. MD will be called this am of both abnormal labs. PT is on RA. SCD's are on. _+CMS to RUE which remains in sling with acewrap. THere is some swelling noted to RUE. Tried placing on pillows to reduce swelling, but pt stated it was painful. HV put out 130ml.
--- NOTE | 2016-11-22 06:32 | NUR ---
H/H Dr Galvan notified of labs. Repeat lab ordered. Ceftriaxone ordered for UTI.
[2016-11-22] MEDS ORDERED: ACET325T51 PO (07:42)
[2016-11-22] MEDS ORDERED: OXYC-474 PO (07:42)
[2016-11-22] MEDS: Lactated Ringer's 1,000 ML IV SCH ×3 (08:00→19:43)
[2016-11-22] MEDS: Senna-Docusate 8.6-50 mg Tablet PO SCH ×2 (08:30→21:45)
[2016-11-22] MEDS: cefTRIAXone Inj 1,000 MG in Dextrose 5% Minibag Plus 50 ML IV SCH (08:40)
--- NOTE | 2016-11-22 10:14 | OP ---
[address] [address] OPERATIVE REPORT PATIENT: AMMON MONDRAGON : 1940 MR#: [id number] ADMIT: 11/21/2016 JOB ID: [id number] CORRECTED REPORT: DATE OF SURGERY: 11/22/2016 PREOPERATIVE DIAGNOSIS(ES): Right recurrent humeral shaft fracture with failure of hardware. POSTOPERATIVE DIAGNOSIS(ES): 1. Right recurrent humeral shaft fracture with failure of hardware. 2. Right upper arm hematoma PROCEDURE: 1. Open reduction, internal fixation of a right humeral shaft fracture. 2. Removal of deep hardware. 3. Evacuation of right arm hematoma. SURGEON: Alcon Harmon D.O. ASSISTANTS: Benito Terrazas M.D. as well Anup Lyles PA-C. The assistance of Dr. Terrazas and Anup Lyles PA-C was necessary due to the amount of comminution and complexity of the case in order to help with holding the reduction and maintaining it while the fixation was applied. Shanna was also used for completion of the procedure with primary closure. ANESTHESIA: General. BRIEF HISTORY: The patient is a pleasant 76-year-old female that I recently saw several weeks prior. She presented to me five weeks after sustaining a right supracondylar humerus fracture. This was injured in [place] and she returned to [place] after wintering in [place]. We discussed having this fixed. She underwent open reduction and fixation of a right supracondylar humerus fracture and did well, but just over a week after her fixation, she fell sustaining a fracture above the tip of the most proximal plate that extended in a spiral fashion proximally to the shaft. She then underwent open reduction and fixation of the humeral shaft with a large frag plate to the anterior cortex of the humeral shaft. At her week followup, she denied any specific trauma but did have some hallucination events due to pain medications within the detention, and per the nursing room staff, it was difficult for her to keep any of her mobilization including her sling intact as she would forget. She presented to me with failure of the hardware with all of the lag screws as well as the proximal screws to the shaft all pulled out. I then discussed with the patient as well as her and family the risks, benefits, alternatives and indications to proceed with removal of the hardware and refixation with a longer plate. They understood the risks include, but not limited to, neurovascular injury, tendon injury, infection, failure of fixation, stiffness, persistent pain, all of which may require further intervention. The patient had all questions answered. Consent was signed and placed in the chart by her . PROCEDURE IN DETAIL: The patient was brought to the operative suite and placed supine on the operating room table. Surgical time-out was performed. Everyone in the room was in agreement. After appropriate anesthesia was obtained, the right upper extremity was then prepped and draped in a sterile fashion. The patient's previous incision was entered after removal of the arsalan and extended proximally in deltopectoral incision and a few centimeters distally to obtain adequate exposure. Previous interval was re-entered distally lateral to the biceps and through a brachialis split and proximally through the deltopectoral interval. There was copious hematoma. The hematoma was evacuated and 3 L of normal saline then irrigated. The patient's hardware of the anterior plate from the last fixation was then removed as well as all loose screws. There was significant comminution and there were two fragments that were loose devoid of any surrounding soft tissues. These were removed to prevent leaving any bone fragments. The fracture was then reduced and held manually followed by application of a 10 hole 3.5 mm LCP Synthes periarticular proximal humerus plate. The plate was fixed first with a nonlocking screw proximal and distal to the comminuted fragments to span the comminuted segment. This pulled the plate to the anterior lateral cortex of the humeral shaft. The placement of the plate as well as the length of the screws were verified under fluoroscopy. Next completion of fixation was performed, mainly utilization of locking screws to prevent cut-out as was apparent with the last fixation. All remaining possible screws spanning the defect were filled mainly with locking screws. Excellent fixation was achieved. Final radiographic views were identified throughout the entire humerus to insure adequate near anatomic alignment as well as appropriate placement of the hardware and appropriate length of all screws. The shoulder and elbow were brought through a full functional range of motion without any instability or motion at the fracture site except for the comminuted butterfly fragments that were further secured with utilization of FiberWire suture through the deltoid insertion into the plate. Further irrigation was performed followed by application of a deep Hemovac drain. Deep interval was then closed with 0-Vicryl, Vicryl for subcutaneous tissues and arsalan for the skin. The patient was then placed in a bulky soft dressing and back into a sling. ESTIMATED BLOOD LOSS: 400 cc. COMPLICATIONS: None. DISPOSITION: The patient tolerated the procedure well. Anesthesia was reversed. The patient was transferred back to recovery. IMPLANTS: A 10 hole Synthes 3.5 mm LCP periarticular proximal humerus plate. POSTOPERATIVE PLAN: The patient will be admitted back to the floor. The drain will be pulled at postoperative day #1 with a dressing change out postoperative day #2. After two days of hospital, she will likely be discharged back to her snf facility. She is to be in the sling at all times except for when working only on elbow range of motion. Corrected by RUBEN 12/03/16 at 8:15am DX.
--- NOTE | 2016-11-22 10:27 | PCM.PNORTH ---
Subjective Date of Service: November 22, 2016 Visit Information: Reason for Visit Right Hardware Fracture Surgery/Surgery Date Post-Op Day # Date of Admission: November 21, 2016 at 18:12 Hospital Day # Subjective Status post day #1 right humerus fracture ORIF with hardware removal. Patient states that she is doing okay and her pain is well-controlled. She is wearing the sling and would like to know how many days she has to stay in the hospital. Postop General: No Complaints, No Shortness of Breath, No Chest Pain Objective Exam Objective Patient is alert and oriented 3. Sitting up in bed and 18, not in acute distress today. Dressing is clean dry and intact, patient wearing the sling appropriately and elbow is resting on a pillow. Patient able to wiggle fingers, sensation and pulses intact, good capillary refill. Last hemoglobin 6.0. Patient on some dramatic. Drain outputs overnight was 130 mL, drainage this morning 35 mL Vital Signs and I/O Vital Sign - Last Date Time Temp Pulse Resp B/P Pulse Ox O2 Delivery O2 Flow Rate FiO2 11/22/16 08:11 36.8 78 16 138/72 96 Room Air Intake and Output 11/21/16 11/21/16 11/22/16 Cumulative From/Thru 15:00 23:00 07:00 11/19/16 14:30 - 11/22/16 06:30 Intake Total 1050 ml 125 ml 1104 ml 2279 ml Output Total 400 ml 930 ml 1330 ml Balance 1050 ml -275 ml 174 ml 949 ml Intake Oral 405 ml 405 ml IV Total 1050 ml 125 ml 699 ml 1874 ml Output Urine Total 800 ml 800 ml Drainage Total 130 ml 130 ml Estimated Blood Loss 400 ml 400 ml # Voids 1 1 # Bowel Movements 0 0 Lab & Micro Results Laboratory Tests Test 11/22/16 04:10 11/22/16 05:10 11/22/16 06:15 Urine Color Dark yellow (YELLOW) Urine Appearance Hazy (CLEAR,HAZY) Urine pH 6.5 (5.0-8.0) Urine Specific [place] 1.025 (1.003-1.035) Urine Protein Negativemg/dL (NEG,TRACE) Urine Glucose (UA) Negativemg/dL (NEGATIVE) Urine Ketones Negativemg/dL (NEGATIVE) Urine Occult Blood Negative (NEGATIVE) Urine Nitrite Positive (NEGATIVE) Urine Bilirubin Negative (NEGATIVE) Urine Urobilinogen Normalmg/dL (NORMAL) Urine Leukocyte Esterase Small (NEGATIVE) Urine RBC 0-2/hpf (0-2) Urine WBC >50/hpf (0-5) Urine Epithelial Cells Few/hpf (NONE-MOD) Urine Crystals None seen (NONE SEEN) Urine Bacteria Moderate/hpf (NONE-FEW) Urine Hyaline Casts None/lpf (NONE) Urine Granular Casts None seen (NONE SEEN) Urine Waxy Casts None seen (NONE SEEN) Urine Red Blood Cell Casts None seen (NONE SEEN) Urine White Blood Cell Casts None seen (NONE SEEN) Urine Mucus None seen (None Seen) Urine Trichomonas None seen (NONE SEEN) Urine Yeast None (NONE SEEN) Urine Culture Reflexed Indicated White Blood Count 7.9th/mm3 (3.8-10.1) Red Blood Count 2.38mil/mm3 (3.90-5.20) Hemoglobin 6.0g/dL (12.0-15.6) 6.6g/dL (12.0-15.6) Hematocrit 19.9% (35.0-46.0) 22.4% (35.0-46.0) Mean Corpuscular Volume 83.6fL (81-100) Mean Corpuscular Hemoglobin 25.2pg (27.0-35.0) Mean Corpuscular Hemoglobin Concent 30.2% (32.0-37.0) Red Cell Distribution Width 16.0% (12.3-15.4) Platelet Count 233bil/L (150-400) Neutrophils (%) (Auto) 75.0% (40-74) Lymphocytes (%) (Auto) 11.4% (14-46) Monocytes (%) (Auto) 11.0% (4-12) Eosinophils (%) (Auto) 2.4% (0-5) Basophils (%) (Auto) 0.1% (0-3) Sodium Level 140mEq/L (134-144) Potassium Level 5.1mEq/L (3.5-5.2) Chloride Level 103mEq/L (97-108) Carbon Dioxide Level 25mmol/L (18-29) Blood Urea Nitrogen 18mg/dL (8-27) Creatinine 0.86mg/dL (0.57-1.00) Estimat Glomerular Filtration Rate 91mL/min (>59) Glucose Level 136mg/dL (60-99) Calcium Level 8.2mg/dL (8.5-10.1) Total Bilirubin 0.3mg/dL (0.0-1.2) Aspartate Amino Transf (AST/SGOT) 14U/L (0-50) Alanine Aminotransferase (ALT/SGPT) 5U/L (0-32) Alkaline Phosphatase 88U/L (25-165) Total Protein 4.8g/dL (6.4-8.4) Albumin 3.1g/dL (3.4-5.0) Microbiology 11/22/16 Urine Culture, Received Pending Result Diagram: 11/22/16 0615 11/22/16 0510 SURGICAL WOUND : Drain Location Body Site: Arm Wound Drainage Type: Hemovac Assessment & Plan Impression Status post day #1 right humerus ORIF with hardware removal. Patient doing very well, comfortable. Still has drain, needs transfusion due to low hematocrit and blood loss anemia. Problems: Plan Patient will remain in the hospital for pain control, while drain remains intact , and for transfusion. Physical therapy may work with patient but she is to remain in the sling and this will be for gentle range of motion of the elbow and forearm only. Patient will remain nonweightbearing for right upper extremity. Patient will remain in the hospital for at least 1 more day, anticipate discharge to SNF back to previous care she will need significant help in 1-2 days. Limited Interventions: Compressions Gabriele Trevizo PA-C November 22, 2016 10:15
[2016-11-22] MEDS ORDERED: 0.9% Sodium Chloride 250 ML ONE ×2 (10:36→15:38)
--- NOTE | 2016-11-22 10:41 | NUR ---
Evaluation completed. Please go to "Notes" then click on "Assessments and Notes" (bottom left corner of screen). Then select appropriate discipline tab on top of screen.
--- NOTE | 2016-11-22 10:43 | NUR ---
Evaluation completed. Please go to "Notes" then click on "Assessments and Notes" (bottom left corner of screen). Then select appropriate discipline tab on top of screen.
--- NOTE | 2016-11-22 14:53 | PCM.PNMED ---
Subjective Date of Service November 22, 2016 Subjective Patient was seen and examined at bedside today. Patient denies any chest pain, shortness of breath, nausea, vomiting, diarrhea. Patient states that her pain is well controlled. Overnight events: Overnight the patient was noted to be severely anemic with a hemoglobin dropping to 6.0 repeat hemoglobin showed the patient to be at 6.6 Exam Vital Signs Vital Sign - Last Date Time Temp Pulse Resp B/P Pulse Ox O2 Delivery O2 Flow Rate FiO2 11/22/16 13:07 36.8 83 16 132/69 11/22/16 08:11 96 Room Air Intake and Output 11/21/16 11/21/16 11/22/16 Cumulative From/Thru 15:00 23:00 07:00 11/19/16 14:30 - 11/22/16 06:30 Intake Total 1050 ml 125 ml 1104 ml 2279 ml Output Total 400 ml 930 ml 1330 ml Balance 1050 ml -275 ml 174 ml 949 ml Intake Oral 405 ml 405 ml IV Total 1050 ml 125 ml 699 ml 1874 ml Output Urine Total 800 ml 800 ml Drainage Total 130 ml 130 ml Estimated Blood Loss 400 ml 400 ml # Voids 1 1 # Bowel Movements 0 0 Exam Physical Exam: GEN: Patient was awake, alert, responding appropriately to questions, patient still seems to be at her baseline mentation HEENT: Pupils equal round and reactive to light, extraocular eye muscles intact , Neck soft supple, trachea midline, nomocephalic/atraumatic CV: +S1/S2, regular rate and rhythm Respiratory: CTAB, no wheezes, rales, rhonchi GI: +bowel sounds x4, soft, compressible, nontender to palpation EXT: no clubbing, cyanosis, edema Musculoskeletal: Right arm currently in a sling and bandaged with Jonathan wrap, R arm +2/4 radial and ulnar pulses, R arm is soft and compressible, positive hand button splitter strength on the R Neuro: Cranial nerves II-XII grossly intact Psych: mood and affect were appropriate IVs and Medications Medications Reviewed: Medications were reviewed in detail Lab and Diagnostics Result Diagram: 11/22/16 0615 11/22/16 0510 Assessment & Plan 76-year-old female with right arm fracture status post ORIF 11/21/16 Right arm fracture postop day 1 -Orthopedics following -Pain control, no narcotics -Drain still in place with significant output Acute blood loss Anemia (secondary to right arm fracture) -Patient's H&H is 6.6/22.4 -Patient has been was consulted to consent for blood -Patient was typed and crossed and transfused 2 units -Continue to monitor Diabetes -Continue metformin 500 mg by mouth twice a day GERD -Omeprazole daily 20 mg Parkinson's disease -Continue home dose of carbidopa/levodopa DVT prophylaxis: Discontinue Lovenox, currently managed by orthopedics Diet: Diabetic Code Status: Full code until family can be contacted. Patient has dementia and unable to make this decision. Disposition: The patient has acute blood loss anemia secondary to the right arm fracture. During surgery the surgical PA (Shanna) describe the fact that the patient had 100 mL hematoma that was stuck in the fracture site and was removed during surgery. The patient has a drain that still in place and is currently still putting out a significant amount of blood. The drain will stay in place for the next 24 hours. Once the patient's anemia is under control and she is medically stable, she will be able to return back to her assisted facility. Limited Interventions: Compressions Roshni Castillo DO November 22, 2016 14:53
--- NOTE | 2016-11-22 15:43 | NUR ---
Social Work- Initial Assessment Data: See Initial Assessment. Pt is a 76 year old female admitted 11/21/16 for right hardware fracture per H&P. Pt's payor is [facility]. PCP is Rosibel Bishop PA-C. OT has seen pt, recommending SNF. SW met with pt at bedside regarding discharge plan, SW role explained. Pt alert and oriented x3. Pt resides in [place] with her where she receives Brandy PAIZ RN PT OT services. Pt uses a cane and walker at baseline. Pt reports history of [facility] and [facility]. Pt has no LTC or VA benefits. Pt has no DPOA at this time, declined DPOA paperwork. Per chart review, pt was discharged Oct to [facility] for 2 weeks private pay. SW spoke with Brandy Aparicio liaison, who confirms that pt is open with Brandy neal RN PT OT. Access given. Pt may need group home care plan for discharge vs. SNF vs. HH. SW will continue to follow for pt's discharge needs. Assessment: Pt who is open with Brandy PAIZ RN PT OT. Plan: OT recommending SNF at this time. Pt is open with Brandy PAIZ RN PT OT. 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 SW will continue to follow for pt's discharge needs. SHANNAN Dolan Addendum: 11/22/16 at 1548 by JAMES DELGADILLO SS Amended: Links added.
--- NOTE | 2016-11-22 19:55 | NUR ---
POST-OP PROGRESS/BLOOD Tylenol PO has been adequate for pain control. Tolerating liquids PO and her diet well. Denies nausea. No emesis noted. Denies SOB. Dressing remains CDI with a sling on her RUE. Orthos WNL. Voiding without any problems. Transfers with 1 PA to the [facility]. Hemovac d/cd by Dr. Harmon this afternoon. 2 units of blood transfused without any issues noted. Denies itching, chest pain/SOB. [place] alarm is on for safety.
[2016-11-23] MEDS: Sodium Chloride LOK Flush 10 mL Syringe IV SCH ×4 (00:57→21:40)
--- NOTE | 2016-11-23 04:38 | NUR ---
BLOOD/CONFUSION PT FINISHED LAST UNIT OF PRBC THIS SHIFT, AFEBRILE, VSS, NO C/O NV OR ITCHING. PT HAS HX OF DEMENTIA AND BECAME MORE CONFUSED THIS SHIFT-SUNDOWNING AND IMPULSIVE, ABLE TO BE REDIRECTED. PAIN CONTROLLED WITH PRN TORADOL, SLING AND DRESSING IN PLACE TO RUE
[2016-11-23] MEDS: Clindamycin Inj 600 MG in IV Premix 1 EACH IV SCH ×3 (05:22→21:40)
[2016-11-23 05:52] VITALS: BP 155/83; PULSE 70; RESP 20; O2SAT 97
[2016-11-23] MEDS: cefTRIAXone Inj 1,000 MG in Dextrose 5% Minibag Plus 50 ML IV SCH (06:10)
[2016-11-23] MEDS: Lactated Ringer's 1,000 ML IV SCH ×2 (09:00→20:48)
--- NOTE | 2016-11-23 09:12 | PCM.PNORTH ---
Subjective Date of Service: November 23, 2016 Visit Information: Reason for Visit Right Hardware Fracture Surgery/Surgery Date right humerus hardware removal and ORIF Post-Op Day # 2 Date of Admission: November 21, 2016 at 18:12 Hospital Day # Subjective Patient states she feels a lot better today. She complains of pain at the fracture site. She feels the hand swelling has gone down. Patient was transfused 2 units of packed red blood cells yesterday. The drain was discontinued last night. Postop General: No Complaints, No Shortness of Breath, No Chest Pain Pain Management: PO Objective Exam Objective Patient is seen sitting up in a chair Vital Signs and I/O Vital Sign - Last Date Time Temp Pulse Resp B/P Pulse Ox O2 Delivery O2 Flow Rate FiO2 11/23/16 05:52 36.7 70 20 155/83 97 Room Air Intake and Output 11/22/16 11/22/16 11/23/16 Cumulative From/Thru 15:00 23:00 07:00 11/19/16 14:30 - 11/23/16 06:06 Intake Total 1848 ml 273 ml 4400 ml Output Total 750 ml 900 ml 2980 ml Balance 1098 ml -627 ml 1420 ml Intake Oral 720 ml 200 ml 1325 ml IV Total 528 ml 73 ml 2475 ml Packed Cells 600 ml 600 ml Output Urine Total 750 ml 900 ml 2450 ml Drainage Total 130 ml Estimated Blood Loss 400 ml # Voids 1 # Bowel Movements 0 Lab & Micro Results Laboratory Tests Test 11/22/16 21:01 11/23/16 05:15 Hemoglobin 8.7g/dL (12.0-15.6) 8.5g/dL (12.0-15.6) Hematocrit 27.8% (35.0-46.0) 26.5% (35.0-46.0) White Blood Count 7.2th/mm3 (3.8-10.1) Red Blood Count 3.27mil/mm3 (3.90-5.20) Mean Corpuscular Volume 81.0fL (81-100) Mean Corpuscular Hemoglobin 26.0pg (27.0-35.0) Mean Corpuscular Hemoglobin Concent 32.1% (32.0-37.0) Red Cell Distribution Width 15.9% (12.3-15.4) Platelet Count 209bil/L (150-400) Sodium Level 138mEq/L (134-144) Potassium Level 4.5mEq/L (3.5-5.2) Chloride Level 102mEq/L (97-108) Carbon Dioxide Level 25mmol/L (18-29) Blood Urea Nitrogen 16mg/dL (8-27) Creatinine 0.89mg/dL (0.57-1.00) Estimat Glomerular Filtration Rate 88mL/min (>59) Glucose Level 148mg/dL (60-99) Calcium Level 8.3mg/dL (8.5-10.1) Total Bilirubin 0.4mg/dL (0.0-1.2) Aspartate Amino Transf (AST/SGOT) 8U/L (0-50) Alanine Aminotransferase (ALT/SGPT) 5U/L (0-32) Alkaline Phosphatase 89U/L (25-165) Total Protein 4.9g/dL (6.4-8.4) Albumin 3.0g/dL (3.4-5.0) Microbiology 11/22/16 Urine Culture - Final, Complete Mixed Urogenital Maribeth Result Diagram: 11/23/1651411/23/16514 General Appearance: Alert, Oriented X3, Cooperative, Mild Distress (when moving arm for dressing change) Extremities: Distal Pulses Palpable, No Compartment Syndrom Noted, Tenderness/ Swelling Noted (upper arm) Postop Sensory Motor: Distal Motor Intact, NVI Distally SURGICAL WOUND : Wound Location/Description Right upper extremity: Surgical dressing is removed. The wound is clean and dry with very minimal dried serous drainage on the bandage. The wound is cleansed with hydrogen peroxide and an Island dressing is applied. There are 2 Tegaderm dressings on the forearm covering 2 skin tears. These were left in place. There is no erythema present. There is mild swelling of the hand. The right upper extremity was wrapped with elastic bandage from the MCP joints to the axilla. Sling was reapplied and the arm was placed on a pillow. Activity: Activity per PT Catheters: None Assessment & Plan Impression Status post right humerus hardware removal and ORIF Postoperative anemia improving Problems: Plan Weightbearing: Nonweightbearing right upper extremity 6 weeks Activity: No movement of the shoulder and elbow. It is okay to move the wrist and fingers. Patient is encouraged to flex and extend the digits 20 times every hour she is awake to help decrease swelling in the hand. Use sling at all times right upper extremity DVT prophylaxis: Resume aspirin 81 mg QD Post operative anemia improved after transfusion PT/OT for transfers, progressive ambulation, therapeutic exercise Wound care: dressing changed today by PA to Island dressing Will plan on continuing antibiotics at discharge - clindamycin 300 mg TID x 10 days Discharge plan: Discharge to SNF today or tomorrow when approved Follow-up plan: In 2 weeks at [facility] with PA for wound check and at [address] Alcon Harmon with x-rays Pain Management: Tylenol, Toradol Resuscitation Status: Limited Interventions Limited Interventions: Compressions Arianna Lyles PA-C November 23, 2016 09:12
[2016-11-23 10:27] VITALS: BP 150/69; PULSE 72; RESP 17; O2SAT 97
[2016-11-23] MEDS: Senna-Docusate 8.6-50 mg Tablet PO SCH ×2 (10:28→20:09)
--- NOTE | 2016-11-23 10:32 | NUR ---
Spoke with Teodora in admissions at [facility] and patient was staying there and is welcome to come back when ready. They have access and are actively following for updates and changes. Updated RN INTERN
--- NOTE | 2016-11-23 12:11 | NUR ---
Social Work- Readiness for Discharge Data: EMR reviewed. Pt is on day 2 of hospitalization for right hardware fracture per H&P. Pt is not medically ready for discharge, anticipate 1-2 more days. OT evaluation recommending SNF. Pt is ambulating SBA but is unsteady and continues to be a fall risk. URBAN requested PT order in multidisciplinary rounds. T/C to step-daughter Keshia regarding terminal supervisor care plan, discharge plan. Per Keshia, pt has been experiencing increasing confusion, memory issues, and hallucinations. Keshia suspects that this is related to pt's Parkinsons. Keshia reports that pt was a private pay rehab patient at [facility] prior to hospitalization, something that the pt was no able to recall during DISTRICT RESOURCE OFFICER conversation at bedside. Keshia also informed URBAN that pt has experience with caregivers through [facility] since 21 October. URBAN and Keshia spoke extensively regarding fdc care planning, including continued private pay SNF, assisted living, / care through [facility]. Keshia is concerned that pt's change in mental status is attributable to her Parkinson's dx. URBAN encouraged Keshia to communicate with the pt's PCP Rosibel Bishop PA-C regarding patients prognosis, disease course, expected changes, and any outpt follow up that would be necessary if this is in fact a medical issue that needs to be addressed. Keshia requested that MD and RN update her regarding pt. URBAN coordinated with Floor RN regarding this. URBAN spoke with Teodora at [facility] who is agreeable to accepting pt back after hospitalization to either come in for skilled need pending [place] authorization or finish out her private pay stay. UR RN updated and requesting [place] auth prior to discharge. Keshia requested DISTRICT RESOURCE OFFICER speak with pt's son Dae Rivers [phone] regarding fdc care planning. SW to follow up with Dae, who is reportedly coming to the hospital this afternoon. Pt anticipated to discharge to [facility] private pay when medically ready. Paperwork in chart. Insurance auth is pending. SW will continue to follow. Assessment: Pt who would benefit from SNF. Plan: Pt anticipated to discharge to [facility] private pay vs. skilled PT pending insurance auth. Paperwork in chart. SW will continue to follow. SHANNAN Dolan
--- NOTE | 2016-11-23 13:51 | NUR ---
Called [facility] and let them know patient is likely to return to SNF and I would be needing to have this reviewed for either authorization or denial. Updated SIDE PULLER Addendum: 11/23/16 at 1501 by MICKIE YOUSSEF CM Jacy from [facility] has denied patient for SNF, this will need to be then Private Pay to back to [facility]. Updated EMERALD COWAN
--- NOTE | 2016-11-23 14:01 | NUR ---
Confusion Patient hollering out this am , confused on where she was but easily directed and has used call dias since then. Asad alarm on for safety and patient up with assist only as unsteady on her feet and some weakness noted to lower extremities but patient is noted for Parkinson in her history. right shoulder dressing changed today by and continues in sling but patient does need reminding to not mess with it.
[2016-11-23 14:51] VITALS: BP 118/69; PULSE 69; RESP 17; O2SAT 96
--- NOTE | 2016-11-23 15:07 | PCM.PNMED ---
Subjective Date of Service November 23, 2016 Subjective doing ok. pain improving. working with OT. denies: headache, lightheadedness, chest pain, worsening shortness of breath, cough, abdominal pain, nausea, vomiting, diarrhea, dysuria, sweats, chills, shakes Exam Vital Signs Vital Sign - Last Date Time Temp Pulse Resp B/P Pulse Ox O2 Delivery O2 Flow Rate FiO2 11/23/16 14:51 36.9 69 17 118/69 96 Room Air Intake and Output 11/22/16 11/22/16 11/23/16 Cumulative From/Thru 15:00 23:00 07:00 11/19/16 14:30 - 11/23/16 06:06 Intake Total 1848 ml 273 ml 4400 ml Output Total 750 ml 900 ml 2980 ml Balance 1098 ml -627 ml 1420 ml Intake Oral 720 ml 200 ml 1325 ml IV Total 528 ml 73 ml 2475 ml Packed Cells 600 ml 600 ml Output Urine Total 750 ml 900 ml 2450 ml Drainage Total 130 ml Estimated Blood Loss 400 ml # Voids 1 # Bowel Movements 0 Exam Gen: no acute distress HEENT: moist mucus membranes Respiratory: CTAB, unlabored respirations Cardiovascular: RRR, no m/r/g Abdomen: soft, non-tender, non-distended. + bowel sounds x 4 quadrants Extr: no edema b/l lower lower extremities RUE bandaged, braced. Psyc: appropriate, cooperative Lab and Diagnostics Result Diagram: 11/23/1651411/23/16514 Assessment & Plan 76-year-old female with right arm fracture status post ORIF 11/21/16 Right arm fracture postop day 1 -Orthopedics following -Pain control -Drain removed. cont OT. per ortho: antibiotics at discharge - clindamycin 300 mg TID x 10 days Discharge plan: Discharge to SNF today or tomorrow when approved Follow-up plan: In 2 weeks at [facility] with PA for wound check and at [address] Alcon Harmon with x-rays Acute blood loss Anemia (secondary to right arm fracture) -transfused. improved. monitor cbc. Diabetes -Continue metformin 500 mg by mouth twice a day GERD -Omeprazole daily 20 mg Parkinson's disease -Continue home dose of carbidopa/levodopa DVT prophylaxis: Discontinue Lovenox ortho recommends asa. Diet: Diabetic Disposition: hopeful for snf in am if medically stable. VTE Mechanical Devices: Intermittant Pneumatic CD Resuscitation Status: Limited Interventions Limited Interventions: Compressions Amrit Cornejo MD November 23, 2016 15:07
[2016-11-23 21:09] VITALS: BP 133/71; PULSE 71; RESP 18; O2SAT 96
[2016-11-23] MEDS: Ketorolac 15 mg/mL Inj IVPUSH PRN (23:24)
--- NOTE | 2016-11-24 02:58 | NUR ---
Mentation/Pain Patient A&O to self and place. Has been pleasant and cooperative with care. No calling out this shift so far. Patient noted to be impulsive, and tries to get self up to [facility] without calling for help. [place] alarm in place for safety. Patient is a SBA, sling in place to right arm. Receiving Tylenol PO and IV Toradol for pain management. Rating right shoulder pain anywhere from 3-6/10. Noted to be resting with eyes closed with each reassessment.
[2016-11-24 03:24] VITALS: BP 156/76; PULSE 71; RESP 18; O2SAT 94
[2016-11-24] MEDS: Clindamycin Inj 600 MG in IV Premix 1 EACH IV SCH (05:28)
[2016-11-24 05:54] LABS: Mean Corpuscular Hemoglobin 25.6 pg (27.0-35.0); Mean Corpuscular Volume 81.2 fL (81-100)
[2016-11-24] MEDS ORDERED: 0.9% Sodium Chloride 250 ML ONE (06:20)
[2016-11-24 06:21] LABS: Magnesium 1.7 mg/dL (1.6-2.6)
[2016-11-24] MEDS: cefTRIAXone Inj 1,000 MG in Dextrose 5% Minibag Plus 50 ML IV SCH (07:18)
[2016-11-24] MEDS: Sodium Chloride LOK Flush 10 mL Syringe IV SCH (08:30)
--- NOTE | 2016-11-24 09:04 | PCM.DIMED ---
Discharge Instructions Date of Service November 24, 2016 Dates of Hospitalization November 21, 2016 at 18:12 Discharge Diagnosis Discharge Diagnosis R humerus hardwar removal and orif. acute blood loss anemia postoperative (resolved) dm2 gerd parkinson's disease Diet Heart Healthy Activity Other (per phsyical therapy / ortho instructions) Call your provider Fever or Chills, Shortness of breath, Bleeding, Chest pain, Vomitting, Excessive diarrhea, Weakness (unilateral), Other (severe pain, numbness tingling in extremities) Patient Instructions as above. Follow-up plan Weightbearing: Nonweightbearing right upper extremity 6 weeks Activity: No movement of the shoulder and elbow. It is okay to move the wrist and fingers. Patient is encouraged to flex and extend the digits 20 times every hour she is awake to help decrease swelling in the hand. Use sling at all times right upper extremity DVT prophylaxis: Resume aspirin 81 mg QD PT/OT for transfers, progressive ambulation, therapeutic exercise Wound care: dressing changed today by PA to Island dressing clindamycin 300 mg TID x 10 days Discharge plan: Discharge to SNF Follow-up plan: In 2 weeks at [facility] with PA for wound check and at [address] Alcon Harmon with x-rays Amrit Cornejo MD November 24, 2016 09:04
[2016-11-24] MEDS ORDERED: OXYC-474 PO (09:07)
[2016-11-24] MEDS: Senna-Docusate 8.6-50 mg Tablet PO SCH (09:12)
--- NOTE | 2016-11-24 09:14 | PCM.DC.MED ---
Discharge Summary Date of Service November 24, 2016 Dates of Hospitalization Date of Hospital Admission November 21, 2016 at 18:12 Date of Discharge: November 24, 2016 Providers: Admitting Physician: Alcon Harmon DO Primary Care Physician: Rosibel Bishop PA-C Attending Physician: Alcon Harmon DO Diagnosis at Time of Discharge Diagnosis at Time of Discharge R humerus hardwar removal and orif. acute blood loss anemia postoperative (resolved) dm2 gerd parkinson's disease Consultations orthopedics Hospital Course 76-year-old female with right arm fracture status post ORIF 11/21/16 right humerus hardware removal and ORIF antibiotics at discharge - clindamycin 300 mg TID x 10 days Discharge plan: Discharge to SNF today or tomorrow when approved Follow-up plan: In 2 weeks at [facility] with CHRISTIANO for wound check and at [address] Alcon Harmon with x-rays Acute blood loss Anemia (secondary to right arm fracture) -transfused. improved. monitor cbc. Diabetes -Continue metformin 500 mg by mouth twice a day GERD -Omeprazole daily 20 mg Parkinson's disease -Continue home dose of carbidopa/levodopa DVT prophylaxis: Discontinue Lovenox ortho recommends asa. Diet: Diabetic dispo snf. Exam Vital Signs (Last) Date Time Temp Pulse Resp B/P Pulse Ox O2 Delivery O2 Flow Rate FiO2 11/24/16 03:24 36.7 71 18 156/76 94 Room Air Exam prior to d/c denies: headache, lightheadedness, chest pain, worsening shortness of breath, cough, abdominal pain, nausea, vomiting, diarrhea, dysuria, sweats, chills, shakes Physical Exam: Gen: no acute distress HEENT: moist mucus membranes Respiratory: CTAB, unlabored respirations Cardiovascular: RRR, no m/r/g Abdomen: soft, non-tender, non-distended. + bowel sounds x 4 quadrants Extr: RUE in sling, bandaged. dry. no numbness, tinglings weakness. pulses 2+b/l Psyc: appropriate, cooperative Test 11/22/16 04:10 11/22/16 05:10 11/23/16 05:15 11/24/16 05:20 Urine Color Dark yellow (YELLOW) Urine Appearance Hazy (CLEAR,HAZY) Urine pH 6.5 (5.0-8.0) Urine Specific [place] 1.025 (1.003-1.035) Urine Protein Negativemg/dL (NEG,TRACE) Urine Glucose (UA) Negativemg/dL (NEGATIVE) Urine Ketones Negativemg/dL (NEGATIVE) Urine Occult Blood Negative (NEGATIVE) Urine Nitrite Positive (NEGATIVE) Urine Bilirubin Negative (NEGATIVE) Urine Urobilinogen Normalmg/dL (NORMAL) Urine Leukocyte Esterase Small (NEGATIVE) Urine RBC 0-2/hpf (0-2) Urine WBC >50/hpf (0-5) Urine Epithelial Cells Few/hpf (NONE-MOD) Urine Crystals None seen (NONE SEEN) Urine Bacteria Moderate/hpf (NONE-FEW) Urine Hyaline Casts None/lpf (NONE) Urine Granular Casts None seen (NONE SEEN) Urine Waxy Casts None seen (NONE SEEN) Urine Red Blood Cell Casts None seen (NONE SEEN) Urine White Blood Cell Casts None seen (NONE SEEN) Urine Mucus None seen (None Seen) Urine Trichomonas None seen (NONE SEEN) Urine Yeast None (NONE SEEN) Urine Culture Reflexed Indicated Neutrophils (%) (Auto) 75.0% (40-74) Lymphocytes (%) (Auto) 11.4% (14-46) Monocytes (%) (Auto) 11.0% (4-12) Eosinophils (%) (Auto) 2.4% (0-5) Basophils (%) (Auto) 0.1% (0-3) Total Bilirubin 0.4mg/dL (0.0-1.2) Aspartate Amino Transf (AST/SGOT) 8U/L (0-50) Alanine Aminotransferase (ALT/SGPT) 5U/L (0-32) Alkaline Phosphatase 89U/L (25-165) Total Protein 4.9g/dL (6.4-8.4) Albumin 3.0g/dL (3.4-5.0) White Blood Count 7.8th/mm3 (3.8-10.1) Red Blood Count 3.56mil/mm3 (3.90-5.20) Hemoglobin 9.1g/dL (12.0-15.6) Hematocrit 28.9% (35.0-46.0) Mean Corpuscular Volume 81.2fL (81-100) Mean Corpuscular Hemoglobin 25.6pg (27.0-35.0) Mean Corpuscular Hemoglobin Concent 31.5% (32.0-37.0) Red Cell Distribution Width 16.4% (12.3-15.4) Platelet Count 248bil/L (150-400) Sodium Level 139mEq/L (134-144) Potassium Level 4.8mEq/L (3.5-5.2) Chloride Level 101mEq/L (97-108) Carbon Dioxide Level 24mmol/L (18-29) Blood Urea Nitrogen 16mg/dL (8-27) Creatinine 0.89mg/dL (0.57-1.00) Estimat Glomerular Filtration Rate 88mL/min (>59) Glucose Level 144mg/dL (60-99) Calcium Level 8.8mg/dL (8.5-10.1) Magnesium Level 1.7mg/dL (1.6-2.6) Discharge Medications Discharge Medications Alendronate Sodium (Fosamax) 70 Mg Tablet 70 MG PO WEEKLY (Reported) Aspirin (Aspirin) 81 Mg Tablet 81 MG PO HS (Reported) Carbidopa/Levodopa 25-100 mg (Carbidopa/Levodopa 25-100 mg) 1 Each Tablet 2 TABLET PO BID (Reported) Carbidopa/Levodopa 25-100 mg (Carbidopa/Levodopa 25-100 mg) 1 Each Tablet 1 TABLET PO Noon (Reported) Cholecalciferol (Vitamin D3) (Vitamin D3) 1,000 Unit Tab.chew 1,000 UNIT PO DAILY (Reported) Latanoprost (Latanoprost) 2.5 Ml Drops 1 GTT OP HS (Reported) Magnesium Hydroxide (Milk of Magnesia) 400 Mg/5 Ml Oral.susp 400 MG PO DAILY ( Reported) Metformin (Metformin) 500 Mg Tablet 500 MG PO BID (Reported) As needed Acetaminophen (Acetaminophen) 325 Mg Tablet 325-650 MG PO Q4H PRN PRN For Pain ( Reported) Meloxicam (Mobic) 7.5 Mg Tablet 7.5 MG PO DAILY PRN PRN For Pain Prescribed by: EBLERT REAL MD Omeprazole (Omeprazole) 20 Mg Capsule.dr 20 MG PO DAILY PRN PRN propylaxis NSAID As needed if taking Mobic for pain. Prescribed by: ELBERT REAL MD Oxycodone (Roxicodone) 5 Mg Tablet 5 MG PO Q4H PRN PRN For Pain Prescribed by: NADINE C GELOU, M Additional med instructions clinda for 10 days as mentioned above. Followup Plan Follow-up plan Weightbearing: Nonweightbearing right upper extremity 6 weeks Activity: No movement of the shoulder and elbow. It is okay to move the wrist and fingers. Patient is encouraged to flex and extend the digits 20 times every hour she is awake to help decrease swelling in the hand. Use sling at all times right upper extremity DVT prophylaxis: Resume aspirin 81 mg QD PT/OT for transfers, progressive ambulation, therapeutic exercise Wound care: dressing changed today by PA to [place] dressing clindamycin 300 mg TID x 10 days Discharge plan: Discharge to SNF Follow-up plan: In 2 weeks at [facility] with PA for wound check and at [address] Alcon Harmon with x-rays Discharge Diet: Heart Healthy Discharge Activity: Other (per phsyical therapy / ortho instructions) Patient Instructions as above. Follow-up with PCP in: 1 week Time spent 35mins Nadine Cornejo MD November 24, 2016 09:14
[2016-11-24] MEDS ORDERED: CLIN-78 PO (09:16)
--- NOTE | 2016-11-24 09:59 | NUR ---
Evaluation completed. Please go to "Notes" then click on "Assessments and Notes" (bottom left corner of screen). Then select appropriate discipline tab on top of screen.
--- NOTE | 2016-11-24 09:59 | NUR ---
[facility] signed
[2016-11-24] MEDS: Lactated Ringer's 1,000 ML IV SCH (10:00)
--- NOTE | 2016-11-24 11:36 | NUR ---
Social Work: Discharge D: Pt is on day 3 of hospitalization. URBAN met with pt and son Dae to discuss discharge planning. Dae requested information regarding assisted living, independent living, and DME. URBAN provided senior resources guide and DME supplier list. URBAN confirmed that pt will be accepted to [facility]. URBAN confirmed that pt will be transported by [facility] at 12:30 today. Pt and family are agreeable. Pt was concerned about out of pocket expenses. URBAN confirmed that pt paid for 1-month up front on 11/10 and pt is paid through 12/10. URBAN communicated this information to family and pt SW faxed ppw to [facility] and compiled transfer ppw for pick-up. A: Pt who would benefit from returning to SNF. P: Pt will return to [facility] today at 12:30. URBAN faxed ppw to [facility]. SHANNAN Schreiber.
--- NOTE | 2016-11-24 12:33 | PCM.PNORTH ---
Subjective Date of Service: November 24, 2016 Visit Information: Reason for Visit Right Hardware Fracture Surgery/Surgery Date right humerus hardware removal and ORIF 11/21/2016 Post-Op Day # 3 Date of Admission: November 21, 2016 at 18:12 Hospital Day # Subjective The patient complains of incisional pain and she denies tingling or numbness in the right upper extremity. She states she has full motor function distally. She is scheduled to be transferred to [facility] today. Postop General: No Complaints, No Shortness of Breath, No Chest Pain Pain Management: PO Objective Exam Objective Patient is seen sitting up in bed Vital Signs and I/O Vital Sign - Last Date Time Temp Pulse Resp B/P Pulse Ox O2 Delivery O2 Flow Rate FiO2 11/24/16 03:24 36.7 71 18 156/76 94 Room Air Intake and Output 11/23/16 11/23/16 11/24/16 Cumulative From/Thru 15:00 23:00 07:00 11/19/16 14:30 - 11/24/16 06:29 Intake Total 720 ml 306 ml 5426 ml Output Total 525 ml 1100 ml 4605 ml Balance 195 ml -794 ml 821 ml Intake Oral 720 ml 250 ml 2295 ml IV Total 56 ml 2531 ml Packed Cells 600 ml Output Urine Total 525 ml 1100 ml 4075 ml Drainage Total 130 ml Estimated Blood Loss 400 ml # Voids 1 # Bowel Movements 0 Lab & Micro Results Laboratory Tests Test 11/24/16 05:20 White Blood Count 7.8th/mm3 (3.8-10.1) Red Blood Count 3.56mil/mm3 (3.90-5.20) Hemoglobin 9.1g/dL (12.0-15.6) Hematocrit 28.9% (35.0-46.0) Mean Corpuscular Volume 81.2fL (81-100) Mean Corpuscular Hemoglobin 25.6pg (27.0-35.0) Mean Corpuscular Hemoglobin Concent 31.5% (32.0-37.0) Red Cell Distribution Width 16.4% (12.3-15.4) Platelet Count 248bil/L (150-400) Sodium Level 139mEq/L (134-144) Potassium Level 4.8mEq/L (3.5-5.2) Chloride Level 101mEq/L (97-108) Carbon Dioxide Level 24mmol/L (18-29) Blood Urea Nitrogen 16mg/dL (8-27) Creatinine 0.89mg/dL (0.57-1.00) Estimat Glomerular Filtration Rate 88mL/min (>59) Glucose Level 144mg/dL (60-99) Calcium Level 8.8mg/dL (8.5-10.1) Magnesium Level 1.7mg/dL (1.6-2.6) Microbiology 11/22/16 Urine Culture - Final, Complete Mixed Urogenital Maribeth Result Diagram: 11/24/16 0511/24/16 05 General Appearance: Alert, Oriented X3, Cooperative, No Acute Distress SURGICAL WOUND : Wound Location/Description Right upper extremity: There is mild serosanguineous drainage at the distal end of the dressing. Dressing is removed. Wound is cleansed with hydrogen peroxide and a new [place] dressing applied. Tegaderm dressings were left in place over the 2 skin tears on the forearm. Right upper extremity is wrapped with elastic bandage from the hand to the upper arm. An ABD pad is placed in the axilla to absorb moisture. Activity: Activity per PT Catheters: None Assessment & Plan Impression POD #3 right humerus hardware removal and ORIF Problems: Plan Weightbearing: Nonweightbearing right upper extremity 6 weeks Activity: No movement of the shoulder and elbow. It is okay to move the wrist and fingers. Patient is encouraged to flex and extend the digits 20 times every hour she is awake to help decrease swelling in the hand. Use sling at all times right upper extremity DVT prophylaxis: Resume aspirin 81 mg QD Post operative anemia improved after transfusion PT/OT for transfers, progressive ambulation, therapeutic exercise Wound care: dressing changed today by PA to [place] dressing. Change dressing every 2-3 days if needed. Skin is very thin - be very gentle with dressing changes. There are tegaderm dressings (2) on the forearm over [address] skin [address] Leave in place for a week. Change ABD pad or use sani-pad in axilla every day to avoid skin breakdown Will plan on continuing antibiotics at discharge - clindamycin 300 mg TID x 10 days Discharge plan: Discharge to SNF today Follow-up plan: In 2 weeks at [facility] with PA for wound check and at [address] Alcon Harmon with x-rays Pain Management: Tylenol VTE Prophylaxis: Other (aspirin) Resuscitation Status: Limited Interventions Limited Interventions: Compressions Arianna Lyles PA-C November 24, 2016 12:32
--- NOTE | 2016-11-24 12:34 | NUR ---
DC Pt leaves via with transport services. RA, A&O at this time. Pt understands that she is going to [facility] for rehab. Family aware as well. All belongings with pt as well as sent home with son. Report called into [facility]. Sling on Rt arm in place, Dressing in place ELLEN wrapped. C/D/I. Care discontinues
--- NOTE | 2016-11-24 12:42 | NUR ---
[facility] report Placed on hold for over 7 minutes. Unable to give report. Will attempt to call report again.
== END 2016-11-24 12:32 | DRG 493 ==
LOC: SAS 10:54 → OSC 18:12
PROVIDERS: ADMIT Orthopaedic Surgery; ATTEND Orthopaedic Surgery
PROC: 0PSF04Z Reposition Right Humeral Shaft with Internal Fixation Device, Open Approach (ICD-10-PCS; principal; 2016-11-22)
PROC: 0PPF04Z Removal of Internal Fixation Device from Right Humeral Shaft, Open Approach (ICD-10-PCS; 2016-11-22)
PROC: 30233N1 Transfusion of Nonautologous Red Blood Cells into Peripheral Vein, Percutaneous Approach (ICD-10-PCS; 2016-11-22)
PROC: 30233N1 Transfusion of Nonautologous Red Blood Cells into Peripheral Vein, Percutaneous Approach (ICD-10-PCS; 2016-11-23)
DX: T84.110A Breakdown (mechanical) of internal fixation device of right humerus, initial encounter (principal); D62 Acute posthemorrhagic anemia; S42.301A Unspecified fracture of shaft of humerus, right arm, initial encounter for closed fracture; E11.9 Type 2 diabetes mellitus without complications; Z79.4 Long term (current) use of insulin; G20 Parkinson's disease; F02.80 Dementia in other diseases classified elsewhere, unspecified severity, without behavioral disturbance, psychotic disturbance, mood disturbance, and anxiety; K21.9 Gastro-esophageal reflux disease without esophagitis; I10 Essential (primary) hypertension

== ENCOUNTER 2017-01-04 11:59 | Inpatient (IN) | payer MEDICARE ==
[~2017-01-04] VITALS: Ht 167.6 cm; Wt 63.0 kg
[~2017-01-04 11:59] MED LIST changes: +ACET325T51 PO; +CLIN-78 PO; -Clindamycin Inj 900 MG in IV Premix 1 EACH IV ONE; -Dexamethasone 4 mg/mL Inj IVPUSH PRN; -EPHEDrine Sulfate 50 mg/mL Inj IVPUSH PRN; -HYDROmorphone 1 mg/mL Inj IVPUSH PRN; -LOV40 SUBQ; -Labetalol 5 mg/mL 4 mL Inj IV PRN; -Lactated Ringer's 1,000 ML IV ONE; -Lactated Ringer's 500 ML IV PRN; -MetoCLOpramide 5 mg/mL 2 mL Inj IVPUSH PRN; +OXYC-474 PO; -Ondansetron 2 mg/mL 2 mL Inj IVPUSH PRN; -Phenylephrine 10,000 mCg/mL Inj IVPUSH PRN; -fentaNYL-PF 50 mCg/mL 2 mL Inj IVPUSH PRN; -hydrALAZINE 20 mg/mL Inj IVPUSH PRN
[2017-01-04 12:17] VITALS: BP 199/74; PULSE 86; RESP 21; O2SAT 100
[2017-01-04] MEDS ORDERED: HYDROmorphone 0.5 mg/0.5 mL iSecure Syringe IVPUSH PRN (12:30)
--- NOTE | 2017-01-04 12:33 | ED.REPORT ---
HPI-General Illness Date of Service Jan 04, 2017 ED Provider: Sue Galarza MD The pt is a 76 y/o female w/ a hx of osteoporosis, dementia, HTN, and Parkinson disease presenting to the ED via EMS due to R hip pain from a ground level fall. She reports leaving the house and tripping over her 's foot causing her to hit her lip and R hip. She rates the pain as a 1-2/10. The pt has broken her pelvis, R humerus, and has had two compression fractures in the past. Nursing Notes Stated Complaint: GLF,RT HIP PAIN Chief Complaint: Multiple Trauma/Fall Nursing Notes Reviewed: Yes Allergies: Coded Allergies: Penicillins (Verified Allergy, Severe, Rash, 11/12/15) TAPE (Verified Allergy, Intermediate, 11/12/15) Uncoded Allergies: cholographin- dye (Allergy, Severe, RASH/SYNCOPE, 03/15/14) Scheduled Alendronate Sodium (Fosamax) 70 Mg Tablet 70 MG PO WEEKLY Aspirin (Aspirin) 81 Mg Tablet 81 MG PO HS Carbidopa/Levodopa 25-100 mg (Carbidopa/Levodopa 25-100 mg) 1 Each Tablet 2 TABLET PO BID with breakfast & dinner Carbidopa/Levodopa 25-100 mg (Carbidopa/Levodopa 25-100 mg) 1 Each Tablet 1 TABLET PO Noon Cholecalciferol (Vitamin D3) (Vitamin D3) 1,000 Unit Tab.chew 1,000 UNIT PO DAILY Latanoprost (Latanoprost) 2.5 Ml Drops 1 GTT BOTH_EYES HS Losartan Potassium (Losartan Potassium) 50 Mg Tablet 50 MG PO DAILY Magnesium Hydroxide (Milk of Magnesia) 400 Mg/5 Ml Oral.susp 5 ML PO DAILY Metformin (Metformin) 500 Mg Tablet 500 MG PO BID Scheduled PRN Ibuprofen (Ibuprofen) 600 Mg Tablet 600 MG PO QID PRN PRN For Pain Loperamide (Loperamide) 2 Mg Tablet 2 MG PO Q4H PRN PRN For Diarrhea or Loose Stool Meloxicam (Mobic) 7.5 Mg Tablet 7.5 MG PO DAILY PRN PRN For Pain Omeprazole (Omeprazole) 20 Mg Capsule.dr 20 MG PO DAILY PRN PRN propylaxis NSAID As needed if taking Mobic for pain. Oxycodone (Roxicodone) 5 Mg Tablet 5 MG PO QID PRN PRN For Pain General Time Seen by MD: 12:18 Chief Complaint Other (R hip trauma ) Hx Obtained From: Patient Arrived By: Ambulance Sudden in Onset?: Yes Onset Occurred: Just prior to arrival Caused by: Fall on ground Recent Healthcare: Recent doctor visit, Recent hospitalization Similar Sx Previous: No Past Medical History Past Medical History Parkinson's Syndrome Osteoporosis Dementia Glaucoma Reports: Diabetes mellitus, Hyperlipidemia, Hypertension Past Surgical History Lysis of adhesions Right humerus repair R shoulder surgery Reports: Appendectomy, Cholecystectomy, Hysterectomy, Inguinal hernia repair Smoking History Former Smoker Social History Alcohol Use: "Social" Ambulatory Status Independent Review of Systems Full Review of Systems Ears / Nose / Throat: Reports: Mouth pain (R lip ) Musculoskeletal: Reports: Joint pain (R hip ) Complete sys rev & neg: except as marked. Physical Exam Vital Signs Vital Signs Date Time Temp Pulse Resp B/P Pulse Ox O2 Delivery O2 Flow Rate FiO2 01/04/17 12:17 36.8 86 21 199/74 100 Room Air Initial VS: Reviewed General/Constitutional: Well-developed, Well-nourished Head / Eyes: Atraumatic, Normocephalic, PERRL ENT: Mucous membranes moist, Conjunctiva normal, No scleral icterus Neck: Supple, Non-tender, Full range of motion Respiratory: Breath sounds normal, Clear to auscultation, No respiratory distress Cardiovascular: Regular rate & rhythm, Heart sounds normal, Intact distal pulses Abdomen / GI: Soft, Non-tender, No guarding, No rebound, No distention Neurologic: Alert, Oriented, Nonfocal Psychiatric: Mood/affect normal, Behavior normal, Normal thought content Right Hip: Positive: Leg externally rotated, Leg shortened Skin: No rash, Warm, Dry Nicely healing R shoulder surgical incision No bruising on R hip Bruising over upper lip on R side Interpretation & Diagnostics Lab Results Interpretation Result Diagram: 01/04/17 1233 01/04/17 1233 Test 01/04/17 12:33 01/04/17 14:30 White Blood Count 10.4th/mm3 (3.8-10.1) Red Blood Count 4.72mil/mm3 (3.90-5.20) Hemoglobin 11.5g/dL (12.0-15.6) Hematocrit 37.1% (35.0-46.0) Mean Corpuscular Volume 78.6fL (81-100) Mean Corpuscular Hemoglobin 24.4pg (27.0-35.0) Mean Corpuscular Hemoglobin Concent 31.0% (32.0-37.0) Red Cell Distribution Width 14.9% (12.3-15.4) Platelet Count 212bil/L (150-400) Neutrophils (%) (Auto) 67.0% (40-74) Lymphocytes (%) (Auto) 21.9% (14-46) Monocytes (%) (Auto) 7.9% (4-12) Eosinophils (%) (Auto) 2.4% (0-5) Basophils (%) (Auto) 0.2% (0-3) Sodium Level 138mEq/L (134-144) Potassium Level 4.9mEq/L (3.5-5.2) Chloride Level 100mEq/L (97-108) Carbon Dioxide Level 26mmol/L (18-29) Blood Urea Nitrogen 19mg/dL (8-27) Creatinine 0.78mg/dL (0.57-1.00) Estimat Glomerular Filtration Rate 102mL/min (>59) Glucose Level 173mg/dL (60-99) Calcium Level 9.4mg/dL (8.5-10.1) Total Bilirubin 0.3mg/dL (0.0-1.2) Aspartate Amino Transf (AST/SGOT) 15U/L (0-50) Alanine Aminotransferase (ALT/SGPT) 8U/L (0-32) Alkaline Phosphatase 113U/L (25-165) Troponin T < 0.010ug/L (0.0-0.011) Total Protein 6.8g/dL (6.4-8.4) Albumin 3.9g/dL (3.4-5.0) Hold Purple Top Tube Received (Received) Hold Blue Top Tube Received (Received) Hold [place] Top Tube Received (Received) ECG Interpretation ECG Interpretation: Rate 79 Normal sinus rhythm Inferior infarct, old No ischemia Similar to 11/08/16 Time: 12:33 Interpreted by: ED physician, Parts Cataloger X-Ray Chest Interpretation Chest Xray Interpretation: IMPRESSION: Cardiomegaly without overt failure. No pneumonia. Dictated by: Danny Gifford M.D. on 01/04/2017 at 13:00 Approved by: Danny Gifford M.D. on 01/04/2017 at 13:01 View: Portable, 1 view Interpretation / Wet Read by: Interpret - Radiologist X-Ray Interpretation Xray Interpretation: Pelvis w/ lat hip (rt) IMPRESSION: Intertrochanteric proximal right femur fracture. Dictated by: Danny Gifford M.D. on 01/04/2017 at 13:01 Approved by: Danny Gifford M.D. on 01/04/2017 at 13:01 Interpretation / Wet Read by: Interpret - Radiologist Re-Eval/Medical Decision Med Decision/Clinical Course Mildly demented 76-year-old woman with a mechanical fall landing on her right hip. History of osteoporosis Parkinson's disease hypertension hyperlipidemia and coronary artery disease. She does in fact have a right hip intertrochanteric fracture. The fracture care will be per Dr. Felton and she will be admitted to the hospitalist service Source of Hx: Old records Consultation #1: Referral / Consult Name: Frank Felton DO Consulted With: Surgeon Call Returned at: 14:13 Note: Left message for Dr. Felton who was currently in surgery. Consultation #2: Consulted With: Hospice Aide Call Returned at: 15:16 Vp Client Services: Will see patient, Agrees with eval Note: Dr Arenas Counseled Regarding: Diagnosis, Lab results, Need for admission Discharge & Departure Primary Impression: Hip fracture Encounter type: initial encounter Fracture type: closed Laterality: right Qualified Code: S72.001A - Fracture of unspecified part of neck of right femur, initial encounter for closed fracture Additional Impression: Fall from ground level Disposition: ADMITTED TO HOSPITAL Discharge Condition All VS Reviewed: Yes Condition: Stable Referrals: Rosibel Bishop PA-C (PCP) Florencio Attestation Portions of this note were transcribed by Vic Diaz. I, Dr. Galarza personally performed the history, physical exam and medical decision-making; I reviewed and confirmed the accuracy of the information in the transcribed note. Signed by : Florencio Gregg, 01/04/17 and 1243. copies to: Rosibel Bishop PA-C, Shawna L MD Jan 04, 2017 12:33 Vic Diaz Jan 04, 2017 12:40
[2017-01-04] MEDS ORDERED: LOSA50TA37 PO (12:40)
[2017-01-04] MEDS ORDERED: MAGN400O4 PO (12:40)
[2017-01-04] MEDS ORDERED: IBUP-1827 PO (12:40)
[2017-01-04] MEDS ORDERED: NITR100C PO (12:40)
[2017-01-04] MEDS ORDERED: LOPE2TAB32 PO (12:41)
[2017-01-04 12:42] LABS: BASOPHILS % (AUTO) 0.2 % (0-3); EOSINOPHILS % (AUTO) 2.4 % (0-5); MONOCYTES % (AUTO) 7.9 % (4-12); Mean Corpuscular Hemoglobin 24.4 pg (27.0-35.0); Mean Corpuscular Volume 78.6 fL (81-100); Platelet Count 212 bil/L (150-400)
--- NOTE | 2017-01-04 13:02 | DRSVH ---
PROCEDURE: X-RAY CHEST ONE VIEW, PORTABLE ([id number]) INDICATIONS: fall TECHNIQUE: One view of the chest was acquired. COMPARISON: [facility], CR, XR CHEST 1VW (PORTABLE), 11/08/2016, 3:07. FINDINGS: Surgical changes and devices: Postoperative changes of the right shoulder only partially seen. Lungs and pleura: No pleural effusions or pneumothorax. Lungs are clear. Mediastinum: Mediastinal contours appear normal. Heart size is enlarged. There is aortic atheroscl erosis. Bones and chest wall: No suspicious bony lesions. The bone mineralization is decreased. There is d extroscoliosis of the spine. Overlying soft tissues appear unremarkable. IMPRESSION: Cardiomegaly without overt failure. No pneumonia. Dictated by: Danny Gifford M.D. on 01/04/2017 at 13:00 Approved by: Danny Gifford M.D. on 01/04/2017 at 13:01
--- NOTE | 2017-01-04 13:03 | DRSVH ---
PROCEDURE: X-RAY PELVIS W/LAT HIP (RT) ([id number]) INDICATIONS: fall TECHNIQUE: AP pelvis with lateral view(s) of the right hip(s). COMPARISON: [facility], , XR PELVIS W LATERAL HIP RT, 11/12/2015, 2:29. FINDINGS: Bones: There is a mildly impacted intertrochanteric proximal right femur fracture. No dislocation of the femoral head from acetabulum is evident. The bone mineralization is decreased. There are mild/ moderate degenerative changes of the right hip. Degenerative changes of the lumbosacral spine and le ft hip are also present. The Soft tissues: The visualized bowel gas pattern is normal. No suspicious soft tissue calcifications. IMPRESSION: Intertrochanteric proximal right femur fracture. Dictated by: Danny Gifford M.D. on 01/04/2017 at 13:01 Approved by: Danny Gifford M.D. on 01/04/2017 at 13:01
[2017-01-04 13:05] LABS: TROPONIN T < 0.010 ug/L (0.0-0.011)
[2017-01-04] MEDS ORDERED: OXYC-474 PO (13:13)
[2017-01-04] MEDS ORDERED: Ondansetron 2 mg/mL 2 mL Inj IVPUSH PRN (15:15)
[2017-01-04 15:46] VITALS: BP 182/76; PULSE 82; RESP 20; O2SAT 100
--- NOTE | 2017-01-04 16:01 | PCM.HPMED ---
Subjective Date of Service Jan 04, 2017 Primary Provider: Admitting Physician: Sveta Arenas MD Primary Care Physician: Rosibel Bishop PA-C Attending Physician: Sveta Arenas MD Chief Complaint: Ground level fall History of Present Illness: 76 y/o female w/ a hx of osteoporosis, dementia, HTN, and Parkinson disease presented with ground-level fall. Patient was in usual state of health until this morning. Patient tripped over her 's foot and fell, hit her right hip. Prior to her fall, pt denied any other symptoms, lightheadedness, chest pain, shortness of breath, blurry vision, nausea, vomiting. Of note. pt also had broken pelvis, R humerus, and has had two compression fractures in the past from falls. last recent admssion last month, pt had Rt humerus ORIF, no post-op Cx developed. pt thinks that she has chronic balance problem with her Parkinson' s, although she is using cane or walker. Patient was not on any licensed physical therapist assistant device at the time of fall. has been complaint to all her meds including dopaminergics ROS: Denied recent fever, chills, cough, sputum, rash, recent travel, sick contacts, has chronic diarrhea, eating good appetite, no n/v Review of Systems: Pertinent positives as noted in history of present illness. All other systems were reviewed and are negative Allergies Coded Allergies: Penicillins (Verified Allergy, Severe, Rash, 11/12/15) TAPE (Verified Allergy, Intermediate, 11/12/15) Uncoded Allergies: cholographin- dye (Allergy, Severe, RASH/SYNCOPE, 03/15/14) PMH Home medications: Alendronate 70 mg by mouth weekly Aspirin 81 mg by mouth daily Carbidopa levodopa 22306 2 tabs by mouth morning and night one tab in the afternoon Lovenox 40 mg subcutaneous daily Latanoprost 2.5 ml one drop each eye daily at bedtime Milk of magnesia 400 mg daily Mobic 7.5 mg daily when necessary pain Metformin 500 mg by mouth twice a day Omeprazole 20 mg by mouth when necessary NSAIDs Allergies: Penicillin, tape, dye PMHx: Dementia Diabetes Osteoporosis Parkinson's GERD SHx: Multiple right arm/elbow surgeries FHx: Unable to obtain the patient has dementia and no family was present SocHx: Occupation: Retired Tobacco history: Former smoker patient quit 60 years ago former half pack per day smoker for 15 years Alcohol use: Patient denies Drug use: Patient denies Social History Hx Alcohol Use: No Hx Substance Use: No Hx Tobacco Use: No Smoking Status: Former Smoker Exam Vital Signs Vital Sign - Last Date Time Temp Pulse Resp B/P Pulse Ox O2 Delivery O2 Flow Rate FiO2 01/04/17 12:17 36.8 86 21 199/74 100 Room Air Exam NAD, comfortably laying down on the bed no JVD, MMM, no LAD RRR, nl s1, s2 no mrg CTAB, no w,c S,ND,NT,normoactive BS+ RLE: warm, no edema, pulses 2/2 Rt hip tender, sterilely dressed Lab and Diagnostics Result Diagram: 01/04/17 1233 01/04/17 1233 X-Rays, CTs and MRIs PROCEDURE: X-RAY PELVIS W/LAT HIP (RT) ([id number]) INDICATIONS: fall TECHNIQUE: AP pelvis with lateral view(s) of the right hip(s). COMPARISON: [facility], CR, XR PELVIS W LATERAL HIP RT, 11/12/2015, 2:29. FINDINGS: Bones: There is a mildly impacted intertrochanteric proximal right femur fracture. No dislocation of the femoral head from acetabulum is evident. The bone mineralization is decreased. There are mild/moderate degenerative changes of the right hip. Degenerative changes of the lumbosacral spine and left hip are also present. The Soft tissues: The visualized bowel gas pattern is normal. No suspicious soft tissue calcifications. IMPRESSION: Intertrochanteric proximal right femur fracture. Dictated by: Danny Gifford M.D. on 01/04/2017 at 13:01 Approved by: Danny Gifford M.D. on 01/04/2017 at 13:01 Assessment & Plan Acute, active mechanical fall, POA, resultant Rt hip intertrochanteric fx -appreciate surgical intervention today -NPO -dvt ppx/pain management per ortho post-op multiple falls due to chronic imbalance in the setting of PD, POA, -PT after surgery, pt does needs more precaution or backup measures, appreciate PT to teach patient after surgery Chronic, stable Right arm fracture status post ORIF 11/21/16, stable, Anemia, Continue to monitor and transfuse if necessary Diabetes. hold metf, [id number] qhs GERD, Omeprazole daily 20 mg Parkinson's disease. Continue home dose of carbidopa/levodopa dispo:Patient will be admitted with inpatient status with expectation of inpatient therapy for more than 2 midnights diet:diabetic diet dvt ppx:SCD Full code Time spent 65min Sveta Arenas MD Jan 04, 2017 15:43
--- NOTE | 2017-01-04 16:19 | CONS ---
[address] [address] CONSULTATION REPORT PATIENT: AMMON MONDRAGON : 1940 MR#: [id number] ADMIT: 01/04/2017 JOB ID: [id number] DATE OF SERVICE: 01/04/2017 CHIEF COMPLAINT: Right hip pain. HISTORY OF PRESENT ILLNESS: The patient is a 76-year-old female who is recently postop from Dr. Harmon who has done three operations on her right humerus, who tripped over her 's foot at home and fell sustaining a right hip fracture. She normally ambulates with a cane and is relatively active. She had onset of severe acute right hip pain and was unable to ambulate after the fall. She has had nothing to eat or drink today. PAST MEDICAL HISTORY: Significant for: 1. Diabetes mellitus. 2. Parkinson disease. 3. Hypertension. 4. Glaucoma. PAST SURGICAL HISTORY: 1. Right humerus ORIF x3. 2. Cholecystectomy. 3. Appendectomy. 4. Lysis of adhesions. PHYSICAL EXAMINATION: Vitals: Blood pressure is elevated at 199/74, pulse rate 86, respirations 21, temperature 36.8. She is alert and cooperative in some distress secondary to her right hip pain. Her right hip has pain with any range of motion. Her right lower extremity is shortened and externally rotated. Her surgical incisions from her right humerus are healing well. There is no redness or erythema. She has excellent neurovascular function in her right upper extremity. She is able to move her toes on her right lower extremity and flex and extend the ankle. Her posterior tibial pulse is +2. Her skin is intact overlying the hip. IMAGING: X-rays demonstrate a right hip intertrochanteric fracture. ASSESSMENT: Right hip intertrochanteric fracture. PLAN: We discussed treatment options for this and she would like to proceed with a right hip nailing. We discussed the risks, benefits, and possible complications of the surgery including, but not limited to injury to nerves and vessels, infection, bleeding, incomplete relief of symptoms, deep venous thrombosis. The patient had good understanding. All questions were answered and will plan for surgery now in order to allow her to continue on her parkinsonian medicines this evening and hopefully get back to her preop level of functioning.
[2017-01-04 17:19] VITALS: BP 144/71; PULSE 95; RESP 19; O2SAT 98
[2017-01-04 17:41] VITALS: PULSE 93
[2017-01-04] MEDS ORDERED: Magnesium Hydroxide 10 mL Oral Concentration PO PRN (18:25)
--- NOTE | 2017-01-04 18:30 | NUR ---
Arrival to [facility] Pt with original plan for OR, but per OR, pt stated having had eaten breakfast at ~1000. D/t having to push back surgery time, pt cancelled for night and plan for OR in AM. Pt A&O and answering appropriately, but after being left alone for ~30minutes post being tucked in, began to call out and stated hallucinations but was aware of it. Update to engraved roller inspector for possibilities. Pt with IV to Left AC - patent and SL, VS - low 90s - placed on 2L NC with sats up to 98%, on P500 bed d/t requiring bedrest, Tele in place, doherty patent, DARLING in place. Denied numbness/tingling to RLE, wiggles toes. Call light in reach.
[2017-01-04 20:12] VITALS: BP 156/75; PULSE 89; RESP 17; O2SAT 100
[2017-01-05] VITALS (16 sets, daily range): BP systolic 110–157; BP diastolic 51–80; PULSE 64–92; RESP 11–20; O2SAT 94–100
--- NOTE | 2017-01-05 02:20 | NUR ---
Pain Pt c/o Rt hip pain 10/29. Elevated legs on pillows for comfort and gave Oxycodone 5mg per her request. Pt appeared to be asleep at reassessment. No distress observed or reported. Care ongoing.
[2017-01-05 06:38] LABS: BASOPHILS % (AUTO) 0.2 % (0-3); EOSINOPHILS % (AUTO) 4.5 % (0-5); MONOCYTES % (AUTO) 6.8 % (4-12); Mean Corpuscular Hemoglobin 24.2 pg (27.0-35.0); Mean Corpuscular Volume 77.8 fL (81-100); NEUTROPHILS % (AUTO) 74.9 % (40-74); Platelet Count 174 bil/L (150-400)
[2017-01-05 06:52] LABS: Magnesium 1.8 mg/dL (1.6-2.6); Phosphorus 3.6 mg/dL (2.5-4.9)
[2017-01-05] MEDS: Pantoprazole 40 mg ER24 Tablet PO SCH (07:59)
--- NOTE | 2017-01-05 09:00 | NUR ---
Off floor to OR. diesel technician made aware.
[2017-01-05] MEDS ORDERED: Bupiv-Spinal 0.75%/Dex 8.25% 2 mL Inj ONE (09:10)
[2017-01-05] MEDS ORDERED: Succinylcholine Chloride 20 mg/mL 5 mL Inj ONE (09:10)
[2017-01-05] MEDS ORDERED: fentaNYL-PF 50 mCg/mL 2 mL Inj ONE (09:10)
[2017-01-05] MEDS ORDERED: Ondansetron 2 mg/mL 2 mL Inj ONE (09:10)
--- NOTE | 2017-01-05 10:05 | PCM.HPANE ---
Patient Data Surgeon Admitting Provider:Sveta Arenas MD Attending Provider:Sveta Arenas MD Primary Care Physician:Rosibel Bishop PA-C Other Provider: Reason for Visit Right Hip Fx Ht/WT & BMI Height (Feet): 5 Height (Inches): 6.00 Weight (Kilograms): 71.200 Body Mass Index 25.23 Allergies Coded Allergies: Penicillins (Verified Allergy, Severe, Rash, 11/12/15) TAPE (Verified Allergy, Intermediate, 11/12/15) Uncoded Allergies: cholographin- dye (Allergy, Severe, RASH/SYNCOPE, 03/15/14) Past Anesthesia History Anesthesia History: Denies:: Abnormal Airway, Anesthesia Reactions, Difficult Intubation, Fam Anesthesia Reaction, Fam Malignant Hypertherm, Malignant Hyperthermia Diabetes History Hx Diabetes?: Yes (on metformin) Type of Diabetes: Type II Glycemic Control: Oral Medication Current Bedside Blood Glucose: 149 MRSA MRSA: No Medications Blood Thinner: Aspirin Active Scripts Omeprazole 20 Mg Capsule.dr20 Mg PO DAILY PRN propylaxis NSAID #14 CAPSULE Ref 0 As needed if taking Mobic for pain. Prov:Nik Talbot MD 11/10/16 Meloxicam (Mobic)7.5 Mg Tablet7.5 Mg PO DAILY PRN For Pain #14 TABLET Ref 0 Prov:Nik Talbot MD 11/10/16 Reported Medications Oxycodone (Roxicodone)5 Mg Tablet5 Mg PO QID PRN For Pain 01/04/17 Loperamide 2 Mg Tablet2 Mg PO Q4H PRN For Diarrhea or Loose Stool 01/04/17 Ibuprofen 600 Mg Hpmdxu541 Mg PO QID PRN For Pain Ref 0 01/04/17 Magnesium Hydroxide (Milk of Magnesia)400 Mg/5 Ml Oral.susp5 Ml PO DAILY 01/04/17 Losartan Potassium 50 Mg Qwdxjz69 Mg PO DAILY 01/04/17 Cholecalciferol (Vitamin D3) (Vitamin D3)1,000 Unit Tab.chew1,000 Unit PO DAILY 11/19/16 Metformin 500 Mg Rfftjw926 Mg PO BID Ref 0 11/19/16 Alendronate Sodium (Fosamax)70 Mg Ansmfj79 Mg PO WEEKLY 30 Days Ref 0 11/08/16 Carbidopa/Levodopa 25-100 mg 1 Each Tablet1 Tablet PO Noon 11/08/16 Latanoprost 2.5 Ml Drops1 Gtt BOTH_EYES HS 10/31/16 Carbidopa/Levodopa 25-100 mg 1 Each Tablet2 Tablet PO BID with breakfast & dinner 10/31/16 Aspirin 81 Mg Mnlbyi71 Mg PO HS Ref 0 10/31/16 Discontinued Reported Medications Nitrofurantoin Macrocrystal 100 Mg Pgkemoj058 Mg PO BID Ref 0 01/04/17 Acetaminophen 325 Mg Smqezn465-898 Mg PO Q4H PRN For Pain Ref 0 11/22/16 Magnesium Hydroxide (Milk of Magnesia)400 Mg/5 Ml Oral.rawn571 Mg PO DAILY 11/19/16 Discontinued Scripts Clindamycin 300 Mg Jreuhwl964 Mg PO TID #30 CAPSULE Ref 0 Prov:Amrit Cornejo MD 11/24/16 Oxycodone (Roxicodone)5 Mg Tablet5 Mg PO Q4H PRN For Pain #14 TABLET Ref 0 Prov:Amrit Cornejo MD 11/24/16 History History of ENT Problems?: Yes HEENT History: Positive for:: Cataracts Denies:: Abnormal Airway Difficult Intubation Dysphagia Hearing Problem Sinus Problem TMJ Denture Type: Full- Upper Partial- Lower Teeth Condition: Within Normal Limits Hx of Heart Problems?: Yes Cardiovascular History: Positive for:: Chest Pain (with activity) Hypertension Irregular Heartbeat (PVC PACs) Denies:: AICD Abdominal Aortic Aneurism Atrial Fibrillation Cardiac Surgery Congestive Heart Failure Edema Heart Murmur Pacemaker Rheumatic Fever Thrombophlebitis Valvular Heart Disease Hx of Respiratory Problem?: No Respiratory History: Positive for:: Dyspnea Denies:: Asthma COPD Chest Surgery Cough Emphysema Hemoptysis Oxygen Administration Pneumonia Pulmonary Embolism Tuberculosis Use of C-PAP Machine Hx Neurologic Problems?: Yes Neurological History: Positive for:: Dementia Dizziness Headaches Parkinson's Disease Denies:: Alzheimer's Disease CVA Multiple Sclerosis Seizures Hx of GI Problems?: Yes Hx of Problems?: No Genitourinary History: Denies:: HX of Hemodialysis Kidney Stones Urinary Tract Infection (past hx of) HX of Peritoneal Dialysis: No Female Hx: Denies:: Currently Endometriosis Pelvic Inflammatory Problems with Breasts? Skin History: Denies:: History Skin Disorders? Pressure Ulcers Hx Musculoskeletal Problems?: Yes Musculoskeletal History: Positive for:: Back Injury (hx of vertebral compression fx) Musculoskeletal Trauma (right humeral fx - multiple fixations current admission problem) Denies:: Degenerative Joint Joint Replacement Systemic Lupus Hx of Psycho/Social Problems?: Yes Psycho Social History: Positive for:: Anxiety Denies:: Bipolar Disorder Hx Depression Suicide Attempt Hx Surgeries?: Yes (R humerus ORIF, MARYAM,APPY,HERNIA RPR,LYSIS OF ADHESIONS, HYST,EXC NODULE ) Hx Any Other Health Problems?: Yes Other History: Positive for:: Hospitalization Denies:: Cancer Endocrine Disease Thyroid Disease History Blood Transfusions: Denies:: Blood Transfuse Reaction Blood Transfusions Hx Diabetes: Yes (on metformin)Bedside Blood Glucose: 149 Hx Alcohol Use: NoHx Substance Use: No Smoking Status: Former Smoker Have You Smoked inLast 12 mo: No Stop/Bang Treated for Sleep Apnea?: No Do You Have a CPAP Machine?: No S-Snoring: Do You Snore Loudly: No T-Tired: feel tired, fatigued: Yes O-Obsered: Observed not breath: No P-Blood Pressure: treated: Yes B- Body Mass Index > 35 kg/m2: No A- Age over 50: Yes N- Neck Large Circumference: No G- Gender Male: No GERALDINE Total Score: 2 GERALDINE Risk Assessment: Low Risk, <3 Yes Risk Assessment Category Category 1A: Patient has history of documented sleep apnea, and HAS NOT received any narcotic, sedative or anesthesia administration during this stay. Category 1B: Patient has history of documented sleep apnea, and HAS received any narcotic , sedative or anesthesia administration during this stay Category 2: Patient has SUSPECTED Obstructive Sleep Apnea, and HAS received any narcotic , sedative or anesthesia administration during this stay. Category 3: Patient has SUSPECTED Obstructive Sleep Apnea and HAS NOT received narcotic, sedative or anesthesia administration during this stay. Category 4: Outpatient in Procedural Areas with known sleep apnea or who screen positive for High Risk via the STOP/BANG questionnaire. Exam Exam Vital Signs Vital Signs Date Time Temp Pulse Resp B/P Pulse Ox O2 Delivery O2 Flow Rate FiO2 01/05/17 05:35 36.6 72 17 136/76 99 Nasal Cannula 2.00 01/05/17 05:10 70 General Appearance: Alert, Oriented X3, Cooperative HEENT/AIRWAY: MP 2 Lungs: Clear to Auscultation Heart: Exam Unremarkable, Regular Rate/Rhythm Meds/Labs/Diagnostics Admission Meds Current Medications Carbidopa/Levodopa (Sinemet 25-100 mg) 2 tablet BID PO Last administered on t 07:59; Start 6/16/17 at 20:30 Latanoprost (Xalatan 0.005% Ophth Soln) 0.067 drop HS BOTH_EYES Last administered on 01/04/17 20:43; Start 01/04/17 at 21:00 Losartan Potassium (Cozaar) 50 mg DAILY PO Last administered on 01/05/17 07:59 ; Start 01/05/17 at 08:30 Cholecalciferol (Vitamin D3) 1,000 unit DAILY PO Last administered on 07:59; Start 01/05/17 at 08:30 Pantoprazole (Protonix) 40 mg DAILYAC PO Last administered on 01/05/17 07:59; Start 01/05/17 at 07:30 Bedside Blood Glucose: 149 Labs Test 01/04/17 12:33 01/04/17 14:30 01/05/17 05:45 Troponin T < 0.010ug/L (0.0-0.011) Hold Purple Top Tube Received (Received) Hold Blue Top Tube Received (Received) Hold Rochelle Top Tube Received (Received) White Blood Count 8.9th/mm3 (3.8-10.1) Red Blood Count 4.05mil/mm3 (3.90-5.20) Hemoglobin 9.8g/dL (12.0-15.6) Hematocrit 31.5% (35.0-46.0) Mean Corpuscular Volume 77.8fL (81-100) Mean Corpuscular Hemoglobin 24.2pg (27.0-35.0) Mean Corpuscular Hemoglobin Concent 31.1% (32.0-37.0) Red Cell Distribution Width 14.7% (12.3-15.4) Platelet Count 174bil/L (150-400) Neutrophils (%) (Auto) 74.9% (40-74) Lymphocytes (%) (Auto) 13.4% (14-46) Monocytes (%) (Auto) 6.8% (4-12) Eosinophils (%) (Auto) 4.5% (0-5) Basophils (%) (Auto) 0.2% (0-3) Sodium Level 138mEq/L (134-144) Potassium Level 4.5mEq/L (3.5-5.2) Chloride Level 102mEq/L (97-108) Carbon Dioxide Level 27mmol/L (18-29) Blood Urea Nitrogen 19mg/dL (8-27) Creatinine 0.65mg/dL (0.57-1.00) Estimat Glomerular Filtration Rate 126mL/min (>59) Glucose Level 156mg/dL (60-99) Calcium Level 8.7mg/dL (8.5-10.1) Phosphorus Level 3.6mg/dL (2.5-4.9) Magnesium Level 1.8mg/dL (1.6-2.6) Total Bilirubin 0.7mg/dL (0.0-1.2) Aspartate Amino Transf (AST/SGOT) 65U/L (0-50) Alanine Aminotransferase (ALT/SGPT) 8U/L (0-32) Alkaline Phosphatase 112U/L (25-165) Total Protein 5.5g/dL (6.4-8.4) Albumin 3.3g/dL (3.4-5.0) Plan Impression Patient chart reviewed, patient interviewed and anesthestic plan with risks, benefits, and alternatives discussed, and informed consent obtained. NPO per Anesth. Guidelines: Yes ASA Physical Status: ASA3 Severe Disease Anesthetic Plan: SAB Bene/Risks/Altern/Consents: Yes HP Complete Prior to Induction: Yes Paresh Bellamy DO Jan 05, 2017 08:59
[2017-01-05] MEDS ORDERED: Lactated Ringer's 500 ML IV PRN (10:09)
[2017-01-05] MEDS ORDERED: Lactated Ringer's 1,000 ML IV SCH (10:09)
[2017-01-05] MEDS ORDERED: fentaNYL-PF 50 mCg/mL 2 mL Inj IVPUSH PRN (10:10)
[2017-01-05] MEDS ORDERED: EPHEDrine Sulfate 50 mg/mL Inj IVPUSH PRN (10:10)
[2017-01-05] MEDS ORDERED: Phenylephrine 10,000 mCg/mL Inj IVPUSH PRN (10:10)
[2017-01-05] MEDS ORDERED: Ondansetron 2 mg/mL 2 mL Inj IVPUSH PRN ×2 (10:10→10:45)
[2017-01-05] MEDS ORDERED: HYDROmorphone 1 mg/mL Inj IVPUSH PRN (10:10)
[2017-01-05] MEDS ORDERED: Dexamethasone 4 mg/mL Inj IVPUSH PRN (10:10)
[2017-01-05] MEDS ORDERED: hydrALAZINE 20 mg/mL Inj IVPUSH PRN (10:10)
[2017-01-05] MEDS ORDERED: MetoCLOpramide 5 mg/mL 2 mL Inj IVPUSH PRN (10:10)
[2017-01-05] MEDS ORDERED: Atropine 0.4 mg/mL Inj IVPUSH PRN (10:10)
[2017-01-05] MEDS ORDERED: Labetalol 5 mg/mL 4 mL Inj IV PRN (10:10)
[2017-01-05] MEDS ORDERED: Lactated Ringer's 1,000 ML IV ONE (10:24)
[2017-01-05] MEDS ORDERED: Ropivacaine-PF 0.5% 30 mL Inj INFILTRATE ONE (10:24)
[2017-01-05] MEDS ORDERED: Polyethylene Glycol (PEG) 17 Gm Powder PO PRN (10:45)
[2017-01-05] MEDS ORDERED: HYDROmorphone 0.5 mg/0.5 mL iSecure Syringe IVPUSH PRN (10:45)
[2017-01-05] MEDS ORDERED: Magnesium Hydroxide 10 mL Oral Concentration PO PRN (10:45)
[2017-01-05] MEDS ORDERED: diphenhydrAMINE 25 mg Capsule PO PRN (10:45)
--- NOTE | 2017-01-05 11:15 | NUR ---
Back from OR Pt drowsy. at bedside. Responding to me only if I speak loudly and tap her shoulder. She is able to follow commands when I asked her to wiggle toes. She was able to feel my hand on her knee, but when I touched her rodriguez and upper right thigh she was still saying I was touching her knee. Vital signs stable. Will re-check in an hr. I increased O2 to 3.5 L for adequate sats as she was dropping to 80's on 2L. Tele SR 60's. Montes in place. Ice-pack to right upper thigh. Dressing clean dry and intact. I started NS @ 100cc/hr per order. Care ongoing. Addendum: 01/05/17 at 1432 by JANET ALFRAO RN Jyoti still in place.
--- NOTE | 2017-01-05 11:23 | PCM.PNMED ---
Subjective Date of Service Jan 05, 2017 Subjective c/o pain on rt hip, otherwise no complaints stable Exam Vital Signs Vital Sign - Last Date Time Temp Pulse Resp B/P Pulse Ox O2 Delivery O2 Flow Rate FiO2 01/05/17 11:15 36.3 66 20 113/54 94 Nasal Cannula 2 Intake and Output 01/04/17 01/04/17 01/05/17 Cumulative From/Thru 15:00 23:00 07:00 01/04/17 12:17 - 01/05/17 05:36 Intake Total 350 ml 350 ml Output Total 800 ml 400 ml 1200 ml Balance -800 ml -50 ml -850 ml Intake Oral 350 ml 350 ml Output Urine Total 800 ml 400 ml 1200 ml # Bowel Movements 0 0 Exam NAD, comfortably laying down on the bed no JVD, MMM, no LAD RRR, nl s1, s2 no mrg CTAB, no w,c S,ND,NT,normoactive BS+ RLE: warm, no edema, pulses 2/2 Rt hip tender, sterilely dressed IVs and Medications Medications Reviewed: Medications were reviewed in detail Lab and Diagnostics Result Diagram: 01/05/1745 01/05/17 0545 Assessment & Plan Acute, active mechanical fall, POA, resultant Rt hip intertrochanteric fx -appreciate surgical intervention today -NPO resume diet after surgery -dvt ppx/pain management per ortho post-op multiple falls due to chronic imbalance in the setting of PD, POA, -PT after surgery, pt does needs more precaution or backup measures, appreciate PT to teach patient after surgery Chronic, stable Right arm fracture status post ORIF 11/21/16, stable, Anemia, Continue to monitor and transfuse if necessary Diabetes. hold metf, [id number] qhs GERD, Omeprazole daily 20 mg Parkinson's disease. Continue home dose of carbidopa/levodopa dispo:likely POD#3 per surgery team if remains stable diet:diabetic diet dvt ppx:per surgery team Full code VTE Mechanical Devices: Intermittant Pneumatic CD Time spent 35min Sveta Arenas MD Jan 05, 2017 11:23
[2017-01-05] MEDS: 0.9% Sodium Chloride 1,000 ML IV SCH ×2 (11:37→21:31)
--- NOTE | 2017-01-05 13:45 | NUR ---
Mentation Pt mentation has improved since returning back from OR. She is alert and oriented to self, place, and date. She wasn't aware what happened to her thigh/hip. I explained to pt she was in OR. Pt able to follow commands and has sensation to bilateral right ext. She was able to correctly tell me what part of her leg I was stimulating. I stimulated her right rodriguez, knee, and upper thigh. Pt had sensation. Pulses palpable. Pt up eating lunch, general diet and tolerating well. O2 decreased back to 2L. Care ongoing. Bed alarm on for safety.
--- NOTE | 2017-01-05 13:58 | OP ---
[address] [address] OPERATIVE REPORT PATIENT: AMMON MONDRAGON : 1940 MR#: [id number] ADMIT: 01/04/2017 JOB ID: [id number] DATE OF SURGERY: 01/05/2017 PREOPERATIVE DIAGNOSIS(ES): Right intertrochanteric hip fracture. POSTOPERATIVE DIAGNOSIS(ES): Right intertrochanteric hip fracture. PROCEDURE: Right hip nailing. SURGEON: Frank Felton D.O. ANESTHESIA: Spinal, converted to LMA general. INDICATIONS: The patient is a 76-year-old female who had a ground level fall yesterday. She is recently postop from a right humerus ORIF with revision x2. We discussed treatment options for her fracture and she wished to proceed with a right hip nailing. We discussed the risks, benefits, and possible complications of surgery including, but not limited to injury to nerves and vessels, infection, bleeding, incomplete relief of symptoms, stiffness, need for additional procedures. The patient had good understanding. All questions were answered and she wished to proceed. PROCEDURE IN DETAIL: The patient is brought to the operating room. She was given a preoperative antibiotic and gram of TXA. A surgical time out was performed. The right hip was reduced with a combination of traction, abduction, internal rotation and biplane fluoroscopy was used to confirm reduction. The right hip was then sterilely prepped and draped and an incision was made about three fingerbreadths above the level of the greater trochanter in line with the femur. Dissection was carefully carried through subcutaneous tissue. A guide pin was then placed into the greater trochanter at the junction of the anterior one-third and posterior two-thirds, and advanced into the intramedullary femur. This was then over-reamed and then a 12 x 125 degree Synthes TFN nail was advanced over the guide pin. A small incision was then made for lag screw insertion and the lag screw insertion guide was placed onto the bone and advanced into the center-center position of the femoral head. We then over-reamed this and placed a 90 mm lag screw. The final placement of lag screw was slightly anterior of ideal but I felt that it was acceptable and would further compromise the reduction and fixation to try to change it and, therefore, elected to leave this be. The set screw was then placed and backed up 180 degrees and the distal locking screw was placed using the guide. The wounds were then irrigated and closed with 0 Vicryl to close the fascia, 2-0 to close the subcu. The skin was closed with arsalan and a second gram of TXA was given as closing was occurring. The patient tolerated the procedure well. BLOOD LOSS: 75 cc POSTOPERATIVE PROTOCOL: Have the patient weight-bear to tolerance on her bilateral lower extremities. Would like her to not do any weightbearing on her right upper extremity unless cleared by Dr. Harmon and will plan to use Lovenox for DVT prophylaxis for 21 days postoperatively.
[2017-01-05] MEDS: oxyCODONE-Acetamin 5-325 mg Tablet PO PRN ×2 (15:45→22:57)
--- NOTE | 2017-01-05 16:10 | PCM.ANEP1 ---
Post Anesthesia PACU Phase 1 Assessment Vital Signs Vital Signs Date Time Temp Pulse Resp B/P Pulse Ox O2 Delivery O2 Flow Rate FiO2 01/05/17 14:48 95 Room Air 01/05/17 14:44 36.4 80 16 123/66 100 Nasal Cannula 2.00 01/05/17 12:38 36.1 68 18 157/71 100 Nasal Cannula 2.00 01/05/17 11:30 36.4 67 14 111/65 94 Nasal Cannula 3.00 01/05/17 11:15 36.3 66 20 113/54 94 Nasal Cannula 2 01/05/17 11:15 Supplement Oxygen 01/05/17 11:03 11 99 01/05/17 11:00 66 13 123/54 100 Nasal Cannula 2 01/05/17 10:57 36.7 01/05/17 10:55 64 12 116/53 99 Nasal Cannula 2 01/05/17 10:50 65 13 125/51 95 Room Air 01/05/17 10:45 65 13 121/51 100 Simple Mask 8 01/05/17 10:40 37.2 110/53 01/05/17 10:00 73 Anesthetic Administered: GA Level of Alertness: Drowsy, not talking YOUNG's with Equal Strength: Yes Pain: Yes Pain Scale Score: 4 Nausea or Vomiting: No CV Function & Hydration Stable: Yes Airway Device: Oxygen Delivery: Simple Mask Lungs: Clear to Auscultation Dermatome Level: L3,4 (Thigh) PACU Phase 2 Assessment Complications: No Follow up Care: N/A Patient Instructions Provided: N/A Paresh Bellamy DO Jan 05, 2017 16:10
[2017-01-05] MEDS: Sodium Chloride LOK Flush 10 mL Syringe IV SCH ×2 (16:30→23:32)
[2017-01-05] MEDS: CeFAZolin Inj 2 GM in IV Premix 1 EACH IV SCH ×2 (16:36→23:34)
[2017-01-05] MEDS ORDERED: Glucose 40% Oral Gel 15 Gm Tube PO PRN (17:05)
[2017-01-05] MEDS: Insulin LISPRO 300 Unit/3 mL Inj SUBQ SCH ×2 (17:58→22:00)
[2017-01-05] MEDS ORDERED: Tranexamic Acid Inj 1,000 MG in 0.9% Sodium Chloride 100 ML IV ONE (20:30)
[2017-01-05] MEDS: Senna-Docusate 8.6-50 mg Tablet PO SCH (21:31)
[2017-01-05] MEDS: Insulin GLARgine 100 Unit/mL Syringe SUBQ SCH (21:32)
[2017-01-06] VITALS (11 sets, daily range): BP systolic 81–165; BP diastolic 49–76; PULSE 74–99; RESP 13–19; O2SAT 90–98
[2017-01-06 04:28] LABS: BASOPHILS % (AUTO) 0.2 % (0-3); EOSINOPHILS % (AUTO) 4.4 % (0-5); MONOCYTES % (AUTO) 9.4 % (4-12); Mean Corpuscular Hemoglobin 23.9 pg (27.0-35.0); Mean Corpuscular Volume 78.5 fL (81-100); NEUTROPHILS % (AUTO) 72.9 % (40-74); Platelet Count 148 bil/L (150-400)
--- NOTE | 2017-01-06 06:20 | NUR ---
Shift Note Assumed pt care at 1900, pt alert to self, baseline confusion, redirectable, on bedrest, R hip with island dressing c/d/i, bedrest throughout night, pending PT eval, at 0600 chas Dc'd pt tolerated well, 0600- IV on LAC leaking, d'cd with tip intact msg left for IV therapy for new access, trista alarm on for safety, call light in reach at all times. BP At 0030, 1 hr post pt receiving 1 tab of percocet, Bp at 81/49, pt asymptomatic, has tele, SR 90s. q15 Bp checks done (see vitals charting), at 0400 bp up to 125/76, continue to monitor.
[2017-01-06] MEDS: Sodium Chloride LOK Flush 10 mL Syringe IV SCH ×2 (08:30→16:13)
[2017-01-06] MEDS: Senna-Docusate 8.6-50 mg Tablet PO SCH ×2 (08:49→20:03)
[2017-01-06] MEDS: Pantoprazole 40 mg ER24 Tablet PO SCH (08:49)
[2017-01-06] MEDS: Insulin LISPRO 300 Unit/3 mL Inj SUBQ SCH ×4 (08:50→22:00)
--- NOTE | 2017-01-06 10:09 | PCM.PNMED ---
Subjective Date of Service Jan 06, 2017 Subjective pt tolerated surgery well, denied sob, cough, c/o mild pain on the hip Exam Vital Signs Vital Sign - Last Date Time Temp Pulse Resp B/P Pulse Ox O2 Delivery O2 Flow Rate FiO2 01/06/17 08:41 85 01/06/17 06:11 Supplement Oxygen 01/06/17 04:57 36.8 15 120/67 98 2.00 Intake and Output 01/05/17 01/05/17 01/06/17 Cumulative From/Thru 15:00 23:00 07:00 01/04/17 12:17 - 01/06/17 04:57 Intake Total 720 ml 2116 ml 100 ml 3286 ml Output Total 300 ml 250 ml 300 ml 2050 ml Balance 420 ml 1866 ml -200 ml 1236 ml Intake Oral 1108 ml 100 ml 1558 ml IV Total 720 ml 1008 ml 1728 ml Output Urine Total 300 ml 250 ml 300 ml 2050 ml # Bowel Movements 0 Exam NAD, comfortably laying down on the bed no JVD, MMM, no LAD RRR, nl s1, s2 no mrg CTAB, no w,c S,ND,NT,normoactive BS+ RLE: warm, no edema, pulses 2/2 Rt hip tender, sterilely dressed IVs and Medications Medications Reviewed: Medications were reviewed in detail Lab and Diagnostics Result Diagram: 01/06/17 03501/06/17 0355 X-Rays, CTs and MRIs PROCEDURE: X-RAY PELVIS W/LAT HIP (RT) ([id number]) INDICATIONS: fall TECHNIQUE: AP pelvis with lateral view(s) of the right hip(s). COMPARISON: [facility], CR, XR PELVIS W LATERAL HIP RT, 11/12/2015, 2:29. FINDINGS: Bones: There is a mildly impacted intertrochanteric proximal right femur fracture. No dislocation of the femoral head from acetabulum is evident. The bone mineralization is decreased. There are mild/moderate degenerative changes of the right hip. Degenerative changes of the lumbosacral spine and left hip are also present. The Soft tissues: The visualized bowel gas pattern is normal. No suspicious soft tissue calcifications. IMPRESSION: Intertrochanteric proximal right femur fracture. Dictated by: Danny Gifford M.D. on 01/04/2017 at 13:01 Approved by: Danny Gifford M.D. on 01/04/2017 at 13:01 Assessment & Plan Acute, active mechanical fall, POA, resultant Rt hip intertrochanteric fx s/p Right hip nailing by -dvt ppx/pain management per ortho post-op -daily PT multiple falls due to chronic imbalance in the setting of PD, POA, -PT after surgery, pt does needs more precaution or backup measures, appreciate PT to teach patient after surgery acute blood loss anemia, post-op, from blood loss in OR or dilutional, monitor h /h, tranfuse target>7 Chronic, stable Right arm fracture status post ORIF 11/21/16, stable, Anemia, Continue to monitor and transfuse if necessary Diabetes. hold metf, [id number] qhs GERD, Omeprazole daily 20 mg Parkinson's disease. Continue home dose of carbidopa/levodopa dispo:likely POD#3 per surgery team if remains stable diet:diabetic diet dvt ppx:per surgery team Full code VTE Mechanical Devices: Intermittant Pneumatic CD Time spent 35min Sveta Arenas MD Jan 06, 2017 10:08
[2017-01-06] MEDS: oxyCODONE-Acetamin 5-325 mg Tablet PO PRN ×3 (10:25→23:41)
[2017-01-06] MEDS: 0.9% Sodium Chloride 1,000 ML IV SCH ×2 (10:25→16:14)
--- NOTE | 2017-01-06 11:18 | NUR ---
SHARON signed by pt
--- NOTE | 2017-01-06 12:51 | PROG NOTE ---
[address] [address] PROGRESS NOTE PATIENT: AMMON MONDRAGON : 1940 MR#: [id number] ADMIT: 01/04/2017 JOB ID: [id number] DATE: 01/06/2017 SUBJECTIVE: Patient is seen and examined. Doing well. No chest pain, no shortness of breath. Pain is controlled. OBJECTIVE: Blood pressure 120/67, pulse rate 74, respirations 15, temperature 36.8. She is alert and cooperative, in no acute distress. Surgical dressing is clean, dry, and intact. Right lower extremity has no calf pain or tenderness. She is able to move her toes and her foot is warm, pink, and well perfused. LABORATORY: Hemoglobin 8.8. ASSESSMENT: Status post right hip nailing. PLAN: Will have the patient begin working with physical therapy. She can weightbear to tolerance on her right lower extremity but should not be doing weightbearing with her right arm and therefore will have to use a elizabeth walker or a quad cane for ambulation. Would recommend Lovenox for DVT prophylaxis for 21 days postoperatively. Anticipate that she will need to go to a rehabilitation facility to help with her postoperative rehabilitation.
--- NOTE | 2017-01-06 15:51 | NUR ---
Evaluation completed. Please go to "Notes" then click on "Assessments and Notes" (bottom left corner of screen). Then select appropriate discipline tab on top of screen.
--- NOTE | 2017-01-06 16:33 | NUR ---
Social Work: Initial Assessment D: EMR reviewed. Pt is a 76 y/o female admitted for right hip fracture per H&P. SW met with pt at bedside to conduct initial assessment. Pt was alert and oriented x3. SW explained role and wrote phone number on white board. Pt gave verbal consent to contact daughter, Keshia Becker, for discharge planning. URBAN confirmed pt has completed DPOA/advanced directive ppw and encouraged pt to provide a copy to the hospital. Pt's insurance is [employer] and PCP is Rosibel Bishop PA-C. Pt has hx at [facility], [facility], and [facility]. Pt states she is not longer open with [facility] for PT RN OT because she did not need services any longer. Pt uses a cane and walker at baseline but does not own or use any other DME. Pt states she is independent with ADLs. Pt lives in a single-story home with 1 step to enter with her spouse in [place]. Per PT recommendations, URBAN anticipates pt will likely need SNF for rehabilitation. URBAN will work with RN, MD, and PT to determine rehab needs at discharge. SW will await MD order to coordinate discharge plan. SW will continue to follow. A: Pt who use a walker and cane but is otherwise independent at baseline. P: Per PT recommendations, URBAN anticipates pt will likely need SNF for rehabilitation. URBAN will work with RN, MD, and PT to determine rehab needs at discharge. SW will await MD order to coordinate discharge plan. SW will continue to follow. SHANNAN Schreiber Addendum: 01/06/17 at 1639 by RAHEEM MARIN Amended: Links added.
--- NOTE | 2017-01-06 18:27 | NUR ---
Confusion/Hallucinations Throughout shift patient has been confused and has had multiple hallucinations. At times A&OX3 but has stated that she is in [place] and believes she is at home and needs to put water in the coffee pot. Reports seeing black cats walking around and says "have you seen those black cats? they were just walking by. they were at the house and now they are here.". Did also ask "how old is this little boy?" and pointed to the vital machine. Attempts to get out of bed alone have been witnessed. Patient is easily redirectable. Asad alarm in place under patient in bed.
[2017-01-06] MEDS: Insulin GLARgine 100 Unit/mL Syringe SUBQ SCH (23:06)
[2017-01-07] MEDS: Sodium Chloride LOK Flush 10 mL Syringe IV SCH ×4 (00:30→20:25)
[2017-01-07] MEDS: 0.9% Sodium Chloride 1,000 ML IV SCH ×3 (02:45→22:43)
[2017-01-07 03:52] VITALS: BP 119/77; PULSE 79; RESP 18; O2SAT 90
[2017-01-07 06:36] LABS: BASOPHILS % (AUTO) 0.2 % (0-3); MONOCYTES % (AUTO) 9.5 % (4-12); Mean Corpuscular Hemoglobin 24.4 pg (27.0-35.0); Mean Corpuscular Volume 76.9 fL (81-100); NEUTROPHILS % (AUTO) 76.6 % (40-74); Platelet Count 164 bil/L (150-400)
--- NOTE | 2017-01-07 06:46 | NUR ---
Confusion AOx1, impulsive and attempts to get out of bed frequently to use bedpan, several episodes of incontinence and one small hard BM. Repositioned with pillow between knees to maintain hip alignment. Hallucinations of animals in the room continue. Patient states no pain until repositioning for bedpan. Saline locked and PO fluids encouraged. No chest pain or SOB, pt on CPOX and occasionally dropped <87 while awake. Care continues
[2017-01-07] MEDS: Pantoprazole 40 mg ER24 Tablet PO SCH (08:08)
[2017-01-07] MEDS: Senna-Docusate 8.6-50 mg Tablet PO SCH ×2 (08:09→20:25)
[2017-01-07] MEDS: oxyCODONE-Acetamin 5-325 mg Tablet PO PRN ×2 (08:10→18:45)
[2017-01-07] MEDS: Insulin LISPRO 300 Unit/3 mL Inj SUBQ SCH ×4 (08:11→22:00)
--- NOTE | 2017-01-07 10:34 | PCM.PNORTH ---
Subjective Date of Service: Jan 07, 2017 Visit Information: Reason for Visit Right Hip Fx Surgery/Surgery Date right hip IM nail 01/05/2017 Post-Op Day # 2 Date of Admission: Jan 04, 2017 at 15:20 Hospital Day # Subjective Patient is currently being seen by physical therapy. Patient appears confused and a bit scattered in her thoughts. She is also 5 weeks status post a right humerus ORIF. When asked how her hip is feeling, patient does not remember that she broke it. Pain Management: PO Objective Exam Objective Patient is seen in bed with physical therapy at bedside Vital Signs and I/O Vital Sign - Last Date Time Temp Pulse Resp B/P Pulse Ox O2 Delivery O2 Flow Rate FiO2 01/07/17 03:52 36.4 79 18 119/77 90 Room Air 01/06/17 04:57 2.00 Intake and Output 01/06/17 01/06/17 01/07/17 Cumulative From/Thru 15:00 23:00 07:00 01/04/17 12:17 - 01/07/17 03:52 Intake Total 1410 ml 4696 ml Output Total 850 ml 2900 ml Balance 560 ml 1796 ml Intake Oral 1000 ml 2558 ml IV Total 410 ml 2138 ml Output Urine Total 850 ml 2900 ml # Bowel Movements 0 Lab & Micro Results Laboratory Tests Test 01/07/17 06:08 White Blood Count 12.0th/mm3 (3.8-10.1) Red Blood Count 3.73mil/mm3 (3.90-5.20) Hemoglobin 9.1g/dL (12.0-15.6) Hematocrit 28.7% (35.0-46.0) Mean Corpuscular Volume 76.9fL (81-100) Mean Corpuscular Hemoglobin 24.4pg (27.0-35.0) Mean Corpuscular Hemoglobin Concent 31.7% (32.0-37.0) Red Cell Distribution Width 14.8% (12.3-15.4) Platelet Count 164bil/L (150-400) Neutrophils (%) (Auto) 76.6% (40-74) Lymphocytes (%) (Auto) 10.5% (14-46) Monocytes (%) (Auto) 9.5% (4-12) Eosinophils (%) (Auto) 3.0% (0-5) Basophils (%) (Auto) 0.2% (0-3) Sodium Level 140mEq/L (134-144) Potassium Level 4.3mEq/L (3.5-5.2) Chloride Level 103mEq/L (97-108) Carbon Dioxide Level 23mmol/L (18-29) Blood Urea Nitrogen 15mg/dL (8-27) Creatinine 0.66mg/dL (0.57-1.00) Estimat Glomerular Filtration Rate 124mL/min (>59) Glucose Level 154mg/dL (60-99) Calcium Level 8.6mg/dL (8.5-10.1) Result Diagram: 01/07/1760701/07/17607 General Appearance: Alert, Cooperative, No Acute Distress Extremities: Distal Pulses Palpable, No Compartment Syndrom Noted, Thigh & Calf Soft/Nontender Postop Sensory Motor: Distal Motor Intact, NVI Distally SURGICAL WOUND : Wound Location/Description Right hip: Surgical dressing is clean dry and intact. There is no erythema present. There is mild swelling of the thigh, as expected. Incision General Appearance: No Direct Observation Activity: Activity per PT Catheters: None Assessment & Plan Impression Status post right hip ORIF with IM nail Problems: Plan Weightbearing: Weightbearing as tolerated Right LE with walker Non wieght bearing Right UE DVT prophylaxis: Lovenox 40 mg subcutaneous 3 weeks followed by aspirin 325 mg twice a day 3 weeks Physical therapy for transfers, progressive ambulation, therapeutic exercise. Please use elizabeth-walker. Patient should not use a platform walker. May perform range of motion for the right elbow. Wound care: nursing - please change dressing today to Island dressing Minimize use of narcotics as patient easily develops confusion with taking pain medication Discharge plan: Discharge to SNF in 1-2 days, when medically stable. Follow-up plan: In 2 weeks at [facility] with CHRISTIANO for wound check and at [address] Felton with x-rays Pain Management: Percocet, Tylenol VTE Prophylaxis: Sub-Q Enoxaparin, Arianna Arce PA-C Jan 07, 2017 10:34
--- NOTE | 2017-01-07 11:08 | NUR ---
Confusion/Pain This AM, patient was alert and oriented to self, place, time of day, and situation but was unsure of the day of the week or the date. Patient is impulsive and multiple attempts to get up out of bed without assistance were noted. Easily reoriented, pleasant. [place] alarm in place. Patient moaned loudly with turning and use of bedpan. Patient reported pain at a 2/10 on the pain scale. One tab of percocet given to patient. Upon reassessment 30 minutes after administration, patient was restless in bed with blankets thrashed around in bed. At that time the patient reported a pain of 4/10 on the pain scale. Upon recheck 1 hour after administration, patient was asleep in bed. Hourly checks continued. Continuing to assess pain level and possible confusion sources.
--- NOTE | 2017-01-07 11:28 | NUR ---
Dressing Change Changed right hip dressing to two small island dressings per PA's orders. All three incisions well approximated and arsalan intact. Minimal drainage on inside of old bandage. No redness, swelling, or purulent drainage.
[2017-01-07 13:11] VITALS: BP 103/63; PULSE 77; RESP 18; O2SAT 95
--- NOTE | 2017-01-07 19:41 | PCM.PNMED ---
Subjective Date of Service Jan 07, 2017 Subjective No complaints. Pain is adequately controlled, no chest pain, no dyspnea, no nausea or vomiting Exam Vital Signs Vital Sign - Last Date Time Temp Pulse Resp B/P Pulse Ox O2 Delivery O2 Flow Rate FiO2 01/07/17 13:11 36.4 77 18 103/63 95 Room Air 01/06/17 04:57 2.00 Intake and Output 01/06/17 01/06/17 01/07/17 Cumulative From/Thru 15:00 23:00 07:00 01/04/17 12:17 - 01/07/17 03:52 Intake Total 1410 ml 4696 ml Output Total 850 ml 2900 ml Balance 560 ml 1796 ml Intake Oral 1000 ml 2558 ml IV Total 410 ml 2138 ml Output Urine Total 850 ml 2900 ml # Bowel Movements 0 Exam Gen.- A+ O 3 no apparent distress. Well-nourished female lying askew in bed looking uncomfortable but woke up and corrected herself easily. Eyes- open conjunctiva clear, pupils equal nonicteric Mouth- oral mucosa moist, no exudate ENT- ears normal, nose normal Neck- supple/trach midline CVS- RRR no murmur or gallop Lungs- CTA GI- NABS/NT soft Musc- moving 4 no obvious deformity Neuro- cranial nerves II through XII intact to gross examination, nonfocal Skin- warm and dry, no rashes/lesions/wounds noted Psych- pleasant and appropriate, Lab and Diagnostics Result Diagram: 01/07/17 0608 01/07/17 0608 X-Rays, CTs and MRIs PROCEDURE: X-RAY PELVIS W/LAT HIP (RT) ([id number]) INDICATIONS: fall TECHNIQUE: AP pelvis with lateral view(s) of the right hip(s). COMPARISON: [facility], CR, XR PELVIS W LATERAL HIP RT, 11/12/2015, 2:29. FINDINGS: Bones: There is a mildly impacted intertrochanteric proximal right femur fracture. No dislocation of the femoral head from acetabulum is evident. The bone mineralization is decreased. There are mild/moderate degenerative changes of the right hip. Degenerative changes of the lumbosacral spine and left hip are also present. The Soft tissues: The visualized bowel gas pattern is normal. No suspicious soft tissue calcifications. IMPRESSION: Intertrochanteric proximal right femur fracture. Dictated by: Danny Gifford M.D. on 01/04/2017 at 13:01 Approved by: Danny Gifford M.D. on 01/04/2017 at 13:01 Assessment & Plan 76-year-old female was followed a few times admitted 01/04 with right hip fracture. #R hip intertrochanteric fx s/p nail 01/05 -dvt ppx/pain management per ortho post-op -daily PT #falls 2' chronic imbalance in the setting of PD, POA, -PT after surgery, pt does needs more precaution or backup measures, appreciate PT to teach patient after surgery #acute blood loss anemia, expected with long bone fracture -Hg improving 9.1 01/07 #R humerus fx s/p ORIF 11/21/16- activity per Orth apparently there are no limitations. #Anemia, Continue to monitor and transfuse if necessary #Diabetes. hold metf, [id number] qhs-blood sugars around 150 last 24 hours continue current regimen. #GERD, Omeprazole daily 20 mg #Parkinson's disease. Continue home dose of carbidopa/levodopa diet:diabetic diet dvt ppx:per surgery team Full code VTE Prophylaxis: Sub-Q Enoxaparin, SCDs VTE Mechanical Devices: Intermittant Pneumatic CD Ron Power MD Jan 07, 2017 19:41
[2017-01-07 19:45] VITALS: BP 163/65; PULSE 89; RESP 20; O2SAT 94
[2017-01-07] MEDS: Insulin GLARgine 100 Unit/mL Syringe SUBQ SCH (22:42)
[2017-01-08 06:30] VITALS: BP 115/67; PULSE 67; RESP 18; O2SAT 94
[2017-01-08] MEDS: oxyCODONE-Acetamin 5-325 mg Tablet PO PRN ×2 (06:31→14:00)
--- NOTE | 2017-01-08 07:08 | NUR ---
Pain Reduced Per RN report pt has XL bm on day shift, she is now much more comfortable in bed and does not try to climb out tonight. Given 2x roxicodone in PM with good effect, 1x percocet in AM after she transfers from bed to commode and states there is pain. Saline locked, PO intake adequate with reminders. No SOB or chest pain. Care continues
[2017-01-08] MEDS: Insulin LISPRO 300 Unit/3 mL Inj SUBQ SCH ×2 (08:00→12:29)
[2017-01-08] MEDS: Senna-Docusate 8.6-50 mg Tablet PO SCH (08:30)
[2017-01-08] MEDS: 0.9% Sodium Chloride 1,000 ML IV SCH (08:45)
--- NOTE | 2017-01-08 09:28 | PCM.PNORTH ---
Subjective Date of Service: Jan 08, 2017 Visit Information: Reason for Visit Right Hip Fx Surgery/Surgery Date Post-Op Day # 3 Date of Admission: Jan 04, 2017 at 15:20 Hospital Day # Subjective Patient states she is having pain in her groin. She states her right arm is not causing her any discomfort today. Postop General: No Complaints, No Shortness of Breath Pain Management: PO Objective Exam Objective Sitting up in bed Vital Signs and I/O Vital Sign - Last Date Time Temp Pulse Resp B/P Pulse Ox O2 Delivery O2 Flow Rate FiO2 01/08/17 06:30 36.9 67 18 115/67 94 Room Air 01/06/17 04:57 2.00 Intake and Output 01/07/17 01/07/17 01/08/17 Cumulative From/Thru 15:00 23:00 07:00 01/04/17 12:17 - 01/08/17 06:30 Intake Total 1376 ml 150 ml 6222 ml Output Total 800 ml 485 ml 4185 ml Balance 576 ml -335 ml 2037 ml Intake Oral 1376 ml 150 ml 4084 ml IV Total 2138 ml Output Urine Total 800 ml 485 ml 4185 ml # Bowel Movements 2 1 3 Result Diagram: 01/07/17 0608 01/07/17 0608 General Appearance: Alert, Oriented X3, Cooperative, No Acute Distress Extremities: Distal Pulses Palpable (Radial and dorsalis pedis), No Compartment Syndrom Noted Postop Sensory Motor: Distal Motor Intact, Movement in Toes, Movement in Fingers, Distal Sensation Intact, NVI Distally SURGICAL WOUND : Wound Location/Description Island dressing is clean, dry and intact Incision General Appearance: No Direct Observation Activity: Activity per PT Catheters: None Assessment & Plan Impression POD#3 left hip IM nail Problems: Plan Weightbearing: Weightbearing as tolerated Right LE with walker Non wieght bearing Right UE DVT prophylaxis: Lovenox 40 mg subcutaneous 3 weeks followed by aspirin 325 mg twice a day 3 weeks Physical therapy for transfers, progressive ambulation, therapeutic exercise. Please use elizabeth-walker. Patient should not use a platform walker. May perform range of motion for the right elbow. Wound care: Nursing - please change dressing today to Island dressing Minimize use of narcotics as patient easily develops confusion with taking pain medication Discharge plan: Discharge to SNF in 1-2 days, when medically stable. Orthopedically stable at this point and orthopedics will likely sign off today. We appreciate the hospitalist team's management of this patient's medical care and ortho will happily revisit patient if needed. Follow-up plan: In 2 weeks at [facility] with CHRISTIANO for wound check and at [address] Felton with x-rays VTE Prophylaxis: Sub-Q Enoxaparin, SCDs Ariadna Kincaid PA-C Jan 08, 2017 09:28
[2017-01-08] MEDS: Pantoprazole 40 mg ER24 Tablet PO SCH (09:50)
--- NOTE | 2017-01-08 10:11 | PCM.DIMED ---
Discharge Instructions Date of Service Jan 08, 2017 Dates of Hospitalization Jan 04, 2017 at 15:20 Discharge Diagnosis Discharge Diagnosis Right intertrochanteric hip fracture Diet Discharge Diet: No restrictions Activity Discharge Activity: Other (Weightbearing as tolerated Right LE with walker, RUExt ROM non wt bearing) Call your provider Call your provider for: Fever or Chills, Shortness of breath Patient Instructions Follow-up plan Discharging to SNF for rehabilitation time. Follow-up Provider: Rosibel Bishop PA-C Follow-up with PCP in: Other (on SNF discharge) Provider: Frank Felton DO Follow-up in: Other (wound check 2 weeks with liver been clinic with PA) Ron Power MD Jan 08, 2017 10:10
[2017-01-08] MEDS ORDERED: DOCU-41 PO (10:16)
[2017-01-08] MEDS ORDERED: ASPI325T32 PO (10:16)
[2017-01-08] MEDS ORDERED: Acetaminophen PO (10:16)
[2017-01-08] MEDS ORDERED: INSLIS SUBQ (10:16)
[2017-01-08] MEDS ORDERED: MAGN800O PO (10:16)
[2017-01-08] MEDS ORDERED: ENOX40DI8 SUBQ (10:16)
[2017-01-08] MEDS ORDERED: DIPH25CA6 PO (10:16)
[2017-01-08] MEDS ORDERED: Senna/Docusate Sodium PO (10:16)
--- NOTE | 2017-01-08 10:32 | NUR ---
Social Work: Readiness for Discharge D: EMR reviewed. Pt is a 76 y/o female admitted for right hip fracture per H&P. Pt is POD 3. Pt is medically ready for discharge, awaiting SNF placement. SW has received orders from for SNF placement. PT has seen pt, Pt. unsafe with t/f of elizabeth walker. DIE MAINTENANCE maxA to t/f to [facility]. Pt. will require strength and safe t/f training. REC SNF via cab. Pt's designated discharge contact is step-daughter Keshia Becker [phone] for discharge planning. Pt's son is Dae Rivers [phone] and he is also involved in pt's discharge plan. SW met with pt in the room regarding discharge plan, explained recommendation of SNF for continued rehab. Pt agreeable but forgetful about the facility and it's purpose. T/C to Keshia regarding pt's discharge plan. Keshia clarified pt's living situation-- pt resides at [facility] with her . Keshia is agreeable to discharge to SNF, requested HYDRO STATION OPERATOR speak with pt's son Dae. T/C to Dae regarding pt's discharge plan, SNF choice. Dae requested referral be made to [facility]. [facility] asked to make referrals to facilities. Pt will require [place] authorization prior to discharge. SW will continue to follow. A: Pt for whom SNF is medically necessary. P: Pt requires SNF as she is mod to max assist at this time and requires reinforcement of precautions teaching. SOLE ROUNDING MACHINE OPERATOR to make referral to [facility] for skilled rehab. Pt will require [place] authorization prior to discharge. SW will continue to follow. SHANNAN Dolan
[2017-01-08] MEDS: Sodium Chloride LOK Flush 10 mL Syringe IV SCH (11:06)
[2017-01-08 11:41] VITALS: BP 106/68; PULSE 71; RESP 16; O2SAT 96
--- NOTE | 2017-01-08 11:46 | NUR ---
SHANNAN made referral for SNF to [facility] and [facility]. Per Teodora at [facility], pt owes $4,173 which will have to be paid prior to admission. SW awaits contact from [facility] regarding pt's referral SHANNAN Dolan Addendum: 01/08/17 at 1236 by JAMES DELGADILLO Sharron, admissions at [facility], is agreeable to accepting pt pending [place] [employer] Auth. Humera from [place] has been notified. Pt is agreeable to discharging to [facility]. URBAN continues to follow. SHANNAN Dolan
--- NOTE | 2017-01-08 12:38 | NUR ---
Called and spoke with Humera Mijares CM at [facility] and she is reviewing patient for transfer to [facility] today. Updated CARTOON ANIMATOR Addendum: 01/08/17 at 1301 by MICKIE YOUSSEF CM Humera Mijares CM at [facility] has approved patient for transfer to SNF today. Called and spoke with Sharron Ordoñez community center coordinator at [facility] and she is arranging transport for 1400.0 Updated CARTOON ANIMATOR Addendum: 01/08/17 at 1358 by MICKIE YOUSSEF CM Faxed orders to [facility] and placed copy in chart. [facility] is transporting at 1445 Updated CARTOON ANIMATOR AND [place]
--- NOTE | 2017-01-08 13:54 | NUR ---
Social Work: Discharge D: EMR reviewed. Pt is a 76 y/o female admitted for right hip fracture per H&P. Pt is POD 3. Pt is medically ready for discharge, [facility] has accepted pt. Jack has authorized pt for discharge. URBAN received order to arrange BLS transportation, upon review pt has been sitting in chair at bedside and does not require BLS at this time. URBAN spoke with pt and at bedside regarding acceptance at [facility]. Pt and her are agreeable to discharge. T/C to Dae, pt's son, regarding pt's discharge. Dae is agreeable to discharge to [facility] and states he will update pt's step-daughter Keshia. [facility] has coordinated transportation for 1445, RN updated. KIM created packet and faxed orders. RADHA, RN, pt/family, and [facility] all updated and agreeable to plan. A: Pt for whom SNF is medically necessary. P: Pt to discharge to [facility] with [facility] to follow, transportation via cabulance at 1445. KIM created packet and faxed orders. RADHA, RN, [facility]family, and [facility] all updated and agreeable to plan. Yeimi Rodriguez, ULTRASOUND MANAGER
--- NOTE | 2017-01-08 13:57 | PCM.DC.MED ---
Discharge Summary Date of Service Jan 08, 2017 Dates of Hospitalization Date of Hospital Admission Jan 04, 2017 at 15:20 Date of Discharge: Jan 08, 2017 Providers: Admitting Physician: Sveta Arenas MD Primary Care Physician: Rosibel Bishop PA-C Attending Physician: Sveta Arenas MD Diagnosis at Time of Discharge Diagnosis at Time of Discharge Right intertrochanteric hip fracture Consultations [facility] Procedures XRay, CTs & MRIs PROCEDURE: X-RAY PELVIS W/LAT HIP (RT) ([id number]) INDICATIONS: fall TECHNIQUE: AP pelvis with lateral view(s) of the right hip(s). COMPARISON: [facility], CR, XR PELVIS W LATERAL HIP RT, 11/12/2015, 2:29. FINDINGS: Bones: There is a mildly impacted intertrochanteric proximal right femur fracture. No dislocation of the femoral head from acetabulum is evident. The bone mineralization is decreased. There are mild/moderate degenerative changes of the right hip. Degenerative changes of the lumbosacral spine and left hip are also present. The Soft tissues: The visualized bowel gas pattern is normal. No suspicious soft tissue calcifications. IMPRESSION: Intertrochanteric proximal right femur fracture. Dictated by: Danny Gifford M.D. on 01/04/2017 at 13:01 Approved by: Danny Gifford M.D. on 01/04/2017 at 13:01 ECG 12 Lead rate 79, qtc 437 01/04 reviewed by yvette 01/08 . Sinus rhythm . Inferior infarct, old Brief History 76 y/o female w/ a hx of osteoporosis, dementia, HTN, and Parkinson disease presented with ground-level fall. Patient was in usual state of health until this morning. Patient tripped over her 's foot and fell, hit her right hip. Prior to her fall, pt denied any other symptoms, lightheadedness, chest pain, shortness of breath, blurry vision, nausea, vomiting. Of note. pt also had broken pelvis, R humerus, and has had two compression fractures in the past from falls. last recent admssion last month, pt had Rt humerus ORIF, no post-op Cx developed. pt thinks that she has chronic balance problem with her Parkinson' s, although she is using cane or walker. Patient was not on any executive chef assistant device at the time of fall. has been complaint to all her meds including dopaminergics ROS: Denied recent fever, chills, cough, sputum, rash, recent travel, sick contacts, has chronic diarrhea, eating good appetite, no n/v Hospital Course 76-year-old female has fallen a few times admitted 01/04 with right hip fracture. Patient had ORIF 01/05 and has been medically stable thereafter. Patient has done well discharging to SNF today 01/08. Weightbearing: Weightbearing as tolerated Right LE with walker Non wieght bearing Right UE DVT prophylaxis: Lovenox 40 mg subcutaneous 3 weeks followed by aspirin 325 mg twice a day 3 weeks Physical therapy for transfers, progressive ambulation, therapeutic exercise. Please use elizabeth-walker. Patient should not use a platform walker. May perform range of motion for the right elbow. Wound care: Nursing - please change dressing today to Island dressing Minimize use of narcotics as patient easily develops confusion with taking pain medication Discharge plan: Discharge to SNF in 1-2 days, when medically stable. #R hip intertrochanteric fx s/p nail 01/05 -dvt ppx/pain management per ortho post-op -daily PT #falls 2' chronic imbalance in the setting of PD, POA, -PT after surgery, pt does needs more precaution or backup measures, appreciate PT to teach patient after surgery #acute blood loss anemia, expected with long bone fracture -Hg improving 9.1 01/07 #R humerus fx s/p ORIF 11/21/16- activity per Orth apparently there are no limitations. #Anemia- as low as 8.8 01/06, 9.1 01/07 may need follow-up 621ish #Diabetes. -Metformin is being resumed on discharge, and sliding scale. Patient was getting Lantus 5 units at bedtime blood sugars were running around 200. Continue to monitor. #GERD, Omeprazole daily 20 mg #Parkinson's disease. Continue home dose of carbidopa/levodopa diet:diabetic diet dvt ppx:per surgery team Full code Exam Vital Signs (Last) Date Time Temp Pulse Resp B/P Pulse Ox O2 Delivery O2 Flow Rate FiO2 01/08/17 11:41 36.6 71 16 106/68 96 Room Air 01/06/17 04:57 2.00 Exam Gen.- A+ O 3 no apparent distress. Sitting up in bed eating breakfast. Eyes- open conjunctiva clear, pupils equal nonicteric ENT- ears normal, nose normal Neck- supple/trach midline CVS-normal rate Lungs-normal rate no accessory muscle usage GI-flat Musc- moving 4 no obvious deformity Neuro- cranial nerves II through XII intact to gross examination, nonfocal Skin- warm and dry, no rashes/lesions/wounds noted Psych- pleasant and appropriate, Test 01/04/17 12:33 01/04/17 14:30 01/05/17 05:45 01/07/17 06:08 Troponin T < 0.010ug/L (0.0-0.011) Hold Purple Top Tube Received (Received) Hold Blue Top Tube Received (Received) Hold Fithian Top Tube Received (Received) Phosphorus Level 3.6mg/dL (2.5-4.9) Magnesium Level 1.8mg/dL (1.6-2.6) Total Bilirubin 0.7mg/dL (0.0-1.2) Aspartate Amino Transf (AST/SGOT) 65U/L (0-50) Alanine Aminotransferase (ALT/SGPT) 8U/L (0-32) Alkaline Phosphatase 112U/L (25-165) Total Protein 5.5g/dL (6.4-8.4) Albumin 3.3g/dL (3.4-5.0) White Blood Count 12.0th/mm3 (3.8-10.1) Red Blood Count 3.73mil/mm3 (3.90-5.20) Hemoglobin 9.1g/dL (12.0-15.6) Hematocrit 28.7% (35.0-46.0) Mean Corpuscular Volume 76.9fL (81-100) Mean Corpuscular Hemoglobin 24.4pg (27.0-35.0) Mean Corpuscular Hemoglobin Concent 31.7% (32.0-37.0) Red Cell Distribution Width 14.8% (12.3-15.4) Platelet Count 164bil/L (150-400) Neutrophils (%) (Auto) 76.6% (40-74) Lymphocytes (%) (Auto) 10.5% (14-46) Monocytes (%) (Auto) 9.5% (4-12) Eosinophils (%) (Auto) 3.0% (0-5) Basophils (%) (Auto) 0.2% (0-3) Sodium Level 140mEq/L (134-144) Potassium Level 4.3mEq/L (3.5-5.2) Chloride Level 103mEq/L (97-108) Carbon Dioxide Level 23mmol/L (18-29) Blood Urea Nitrogen 15mg/dL (8-27) Creatinine 0.66mg/dL (0.57-1.00) Estimat Glomerular Filtration Rate 124mL/min (>59) Glucose Level 154mg/dL (60-99) Calcium Level 8.6mg/dL (8.5-10.1) Discharge Medications Discharge Medications ([Senna/Docusate Sodium]) 1 TABLET TABLET 1 TABLET PO BID Prescribed by: PREM DEGROOT MD Aspirin (Aspirin) 325 Mg Tablet 325 MG PO BID Prescribed by: PREM DEGROOT MD Carbidopa/Levodopa 25-100 mg (Carbidopa/Levodopa 25-100 mg) 1 Each Tablet 2 TABLET PO BID (Reported) with breakfast & dinner Carbidopa/Levodopa 25-100 mg (Carbidopa/Levodopa 25-100 mg) 1 Each Tablet 1 TABLET PO Noon (Reported) Cholecalciferol (Vitamin D3) (Vitamin D3) 1,000 Unit Tab.chew 1,000 UNIT PO DAILY (Reported) Docusate Sodium (Colace) 100 Mg Capsule 100 MG PO BID Prescribed by: PREM DEGROOT MD Enoxaparin Sodium (Enoxaparin Sodium) 40 Mg/0.4 Ml Syringe 40 MG SUBQ Q24 Prescribed by: PREM DEGROOT MD Insulin Human Lispro (HumaLOG U100 Insulin Vial) 100 Unit/Ml Unit 0 UNIT SUBQ WMHS Check blood sugars before meals and at bedtime. Use correction factor only before meals. Blood Sugar Lispro Correction: <151, 0 units; 151-175, 1 unit; 176-200, 2 units; 201-225, 3 units; 226-250, 4 units; 251-275, 5 units; 276-300 , 6 units; 301-325, 7 units; 326-350, 8 units; 351-375, 9 units; 376-400, 10 units; >400, 12 units. Prescribed by: PREM DEGROOT MD Latanoprost (Latanoprost) 2.5 Ml Drops 1 GTT BOTH_EYES HS (Reported) Losartan Potassium (Losartan Potassium) 50 Mg Tablet 50 MG PO DAILY (Reported) Magnesium Hydroxide (Milk of Magnesia) 400 Mg/5 Ml Oral.susp 5 ML PO DAILY ( Reported) Metformin (Metformin) 500 Mg Tablet 500 MG PO BID (Reported) As needed ([Acetaminophen]) 325 MG TABLET 650 MG PO Q4H PRN PRN For Pain Prescribed by: PREM DEGROOT MD Loperamide (Loperamide) 2 Mg Tablet 2 MG PO Q4H PRN PRN For Diarrhea or Loose Stool (Reported) Magnesium Hydroxide (Milk of Magnesia) 2,400 Mg/10 Ml Oral.susp 30 ML PO HS PRN PRN For Constipation Prescribed by: PREM DEGROOT MD Omeprazole (Omeprazole) 20 Mg Capsule.dr 20 MG PO DAILY PRN PRN propylaxis NSAID As needed if taking Mobic for pain. Prescribed by: ELBERT REAL MD Oxycodone (Roxicodone) 5 Mg Tablet 5 MG PO QID PRN PRN For Pain (Reported) diphenhydrAMINE HCl (Benadryl) 25 Mg Capsule 25 MG PO Q4H PRN PRN For Itching Prescribed by: PREM DEGROOT MD Followup Plan Disposition: SNF Follow-up plan Discharging to SNF for rehabilitation time. Discharge Diet: No restrictions Discharge Activity: Other (Weightbearing as tolerated Right LE with walker, RUExt ROM non wt bearing) Follow-up Provider: Rosibel Bishop PA-C Follow-up with PCP in: Other (on SNF discharge) Provider: Frank Felton DO Follow-up in: 6 weeks (wound check 2 weeks with [facility] clinic with or CHRISTIANO ) Time spent Greater than 30 minutes Attending Statement Order [facility] 01/09 or 01/10 copies to: Rosibel Bishop PA-C, Andris E MD Jan 08, 2017 13:57
--- NOTE | 2017-01-08 14:25 | NUR ---
TRANSFER TO [facility] Patient transferred to [facility] at 1430, report given to Nisha RN. IV catheter removed and belongings provided to patient and all appropriate paperwork given to transport company. to follow transport to [facility]. Patient given pain medication for ride to [facility]. Patient denies pain, shortness of breath, and nausea. Right hip island dressing c/d/i, Rx in transport packet.
== END 2017-01-08 14:20 | DRG 481 ==
LOC: EDBD 11:59 → EDUNIT# 11:59 → SED 11:59 → OSC 15:20
PROVIDERS: ADMIT Internal Medicine; ATTEND Internal Medicine
PROC: 0QS634Z Reposition Right Upper Femur with Internal Fixation Device, Percutaneous Approach (ICD-10-PCS; principal; 2017-01-05 09:00)
DX: S72.141A Displaced intertrochanteric fracture of right femur, initial encounter for closed fracture (principal); D62 Acute posthemorrhagic anemia; G20 Parkinson's disease; F02.80 Dementia in other diseases classified elsewhere, unspecified severity, without behavioral disturbance, psychotic disturbance, mood disturbance, and anxiety; I10 Essential (primary) hypertension; E78.5 Hyperlipidemia, unspecified; I25.10 Atherosclerotic heart disease of native coronary artery without angina pectoris; W01.0XXA Fall on same level from slipping, tripping and stumbling without subsequent striking against object, initial encounter; Y92.019 Unspecified place in single-family (private) house as the place of occurrence of the external cause; E11.9 Type 2 diabetes mellitus without complications; Z87.891 Personal history of nicotine dependence; K21.9 Gastro-esophageal reflux disease without esophagitis; M81.0 Age-related osteoporosis without current pathological fracture; Z79.84 Long term (current) use of oral hypoglycemic drugs